=== PATIENT | male | born 1955 | race Hispanic/Latino ===

== ENCOUNTER → 2024-01-04 06:31 | Day surgery (SDC) | payer BC, OTHER, SELFPAY ==
[2024-01-04 08:20] LABS: Glucose - Point of Care 99 mg/dl (70-99)
== END ==
LOC: GI 06:31
PROVIDERS: ATTENDING PHYSICIAN Internal Medicine Gastroenterology
DX: Z12.11 Encounter for screening for malignant neoplasm of colon (principal); K64.8 Other hemorrhoids; D12.3 Benign neoplasm of transverse colon; D12.4 Benign neoplasm of descending colon; Z86.010 Personal history of colon polyps
CPT/HCPCS: 45385; 88305; 82962

== ENCOUNTER → 2024-01-07 07:25 | Outpatient (REF) | payer BC, OTHER, SELFPAY | LOC: RAD 07:25 | PROVIDERS: ATTENDING PHYSICIAN Internal Medicine Critical Care Medicine | DX: Z87.891 Personal history of nicotine dependence (principal) | CPT/HCPCS: 71271 ==

== ENCOUNTER 2024-02-15 06:41 | Day surgery (SDC) | payer BC, SELFPAY ==
[2024-01-25 13:24] VITALS: BMI 30.9
[2024-01-25 14:20] LABS: INR 1.07; PT 13.7 Sec (11.4-14.6)
[2024-01-25 14:21] LABS: APTT 27.4 Sec (23.4-35.0)
[2024-02-15] VITALS (8 sets, daily range): BP systolic 122–162; BP diastolic 66–94; BMI 30.9
[2024-02-15 09:25] LABS: Glucose - Point of Care 122 mg/dl (70-99)
[2024-02-15 11:57] LABS: Glucose - Point of Care 113 mg/dl (70-99)
== END 2024-02-15 13:15 | disposition home or self-care (01) ==
LOC: GI 06:41
PROVIDERS: ATTENDING PHYSICIAN Internal Medicine Critical Care Medicine; FAMILY PHYSICIAN Nurse Practitioner Family; OTHER PHYSICIAN Internal Medicine Medical Oncology
DX: R91.1 Solitary pulmonary nodule (principal); R59.0 Localized enlarged lymph nodes; D14.31 Benign neoplasm of right bronchus and lung; J18.8 Other pneumonia, unspecified organism
CPT/HCPCS: 31629; 31624; 31623; 31627; 31654; 31628; 88172; 88173; 88305; 36415; 71045; 76000; 82962; 85610; 85730; 87015; 87070; 87102; 87116; 87205; 88112; 88333; 88334; 93005; 94640; C1887

== ENCOUNTER 2024-03-16 05:10 | Inpatient (IN) | payer BC, OTHER, SELFPAY ==
[2024-03-09 09:43] LABS: Urine Albumin Negative (Neg - Trace); Urine Bilirubin Negative (Negative); Urine Character Slightly Cloudy (Clear); Urine Color Yellow; Urine Glucose Negative (Negative); Urine Ketone Negative (Negative); Urine Leukocyte Negative (Negative); Urine Nitrite Negative (Negative); Urine Occult Blood Negative (Negative); Urine Specific Gravity 1.015 (<1.030); Urine Urobilinogen Negative (Neg - 1+)
[2024-03-09 09:43] LABS: % Basophils 0.5 % (0-2); % Eosinophils 2.1 % (0-6); % Immature Granulocytes 0.4 % (0-0.5); % Lymphocytes 19.4 % (20.5-51.1); % Monocytes 6.3 % (1.7-9.3); % Neutrophils 71.3 % (42.2-75.2); Absolute Basophils 0.1 10^3/uL (0-0.2); Absolute Eosinophils 0.2 10^3/uL (0-0.7); Absolute Lymphocytes 1.9 10^3/uL (1.2-3.4); Absolute Monocytes 0.6 10^3/uL (0.1-0.6); Absolute Neutrophils 6.9 10^3/uL (1.4-6.5); Hematocrit 36.2 % (39.0-52.0); Mean Corp Hgb Conc. 33.1 g/dL (33.0-37.0); Mean Corpuscular Hgb 27.8 pg (27.0-31.0); Mean Platelet Volume 10.6 fL (7.4-10.4); Nucleated Red Blood Cells % 0 % (-); Platelet Count 267 10^3/uL (130-400); Red Blood Cell Count 4.31 10^6/uL (4.70-6.10); Red Cell Dist. Width 12.9 % (11.5-14.5); White Blood Cell Count 9.6 10^3/uL (4.8-10.8)
[2024-03-09 09:51] LABS: PT 14.2 Sec (11.4-14.6)
[2024-03-09 09:52] LABS: APTT 27.4 Sec (23.4-35.0)
[2024-03-09 11:57] LABS: ALT (SGPT) 14 U/L (0-50); AST (SGOT) 19 U/L (17-59); Alkaline Phosphatase 91 U/L (38-126); Blood Urea Nitrogen 19 mg/dl (9-20); Calcium 9.1 mg/dl (8.4-10.2); Carbon Dioxide 24 mmol/L (22-30); Chloride 105 mmol/L (98-107); Direct Bilirubin 0.3 mg/dl (0.0-0.4); Glucose 89 mg/dl (70-99); Potassium 3.6 mmol/L (3.5-5.1); Sodium 139 mmol/L (135-145); Total Bilirubin 0.5 mg/dl (0.2-1.3); Total Protein 6.9 g/dl (6.3-8.2); eGFR > 60.00
[2024-03-09 12:12] VITALS: BMI 31.9
--- NOTE | 2024-03-09 13:04 | CM ---
spoke to pt in PAT's, we discussed preop lung surgery including driving and lifting restrictions, he is prev indep, lives with his in a 2 story home with 1 step to enter. he has the lung surgery educ book, soap and instructions. he is agreeable
to a f/u appt for the ct transitional care nurse after dc. cm role explained and all questions answered. plan is for RUL surgery 03/16.
[2024-03-09 14:39] LABS: Glycohemoglobin (HgbA1c) 6.4 % (4.0-5.6)
[2024-03-16] VITALS (26 sets, daily range): BP systolic 131–181; BP diastolic 66–92; BMI 30.8
--- NOTE | 2024-03-16 06:10 | W.CVOR.SURPR ---
CVOR Surgeon Immed Pre Op
-
I have examined this patient prior to performance of the scheduled procedure.
The patient's condition is unchanged from the time of the dictated/written History and
Physical and the patient is able to undergo the scheduled procedure.
Having multiple loose stools since 1am, denies any abdominal pain, no fevers, no chills. Denies eating anything out
of the norm, did have Lasagna last night. Will check CBC with diff and BMP for electrolyte disturbances/cristobal. Otherwise,
if labs are ok, will proceed with lobectomy.
[2024-03-16 06:15] LABS: % Basophils 0.5 % (0-2); % Immature Granulocytes 0.8 % (0-0.5); % Lymphocytes 14.4 % (20.5-51.1); % Monocytes 5.5 % (1.7-9.3); % Neutrophils 76.8 % (42.2-75.2); Absolute Basophils 0.1 10^3/uL (0-0.2); Absolute Eosinophils 0.3 10^3/uL (0-0.7); Absolute Immature Granulocytes 0.1 10^3/uL (0-0.05); Absolute Lymphocytes 1.8 10^3/uL (1.2-3.4); Absolute Monocytes 0.7 10^3/uL (0.1-0.6); Absolute Neutrophils 9.6 10^3/uL (1.4-6.5); Hematocrit 35.7 % (39.0-52.0); Hemoglobin 12.4 g/dL (13.0-18.0); Mean Corp Hgb Conc. 34.7 g/dL (33.0-37.0); Mean Corpuscular Hgb 28.1 pg (27.0-31.0); Mean Platelet Volume 9.1 fL (7.4-10.4); Nucleated Red Blood Cells % 0 % (-); Platelet Count 345 10^3/uL (130-400); Red Blood Cell Count 4.41 10^6/uL (4.70-6.10); White Blood Cell Count 12.5 10^3/uL (4.8-10.8)
[2024-03-16 06:29] LABS: ALT (SGPT) 16 U/L (0-50); AST (SGOT) 20 U/L (17-59); Albumin 4.3 g/dl (3.5-5.0); Alkaline Phosphatase 94 U/L (38-126); Blood Urea Nitrogen 22 mg/dl (9-20); Calcium 10.5 mg/dl (8.4-10.2); Carbon Dioxide 27 mmol/L (22-30); Chloride 103 mmol/L (98-107); Estimated Creatinine Clearance 121 ml/min; Glucose 160 mg/dl (70-99); Potassium 3.2 mmol/L (3.5-5.1); Sodium 138 mmol/L (135-145); Total Bilirubin 0.5 mg/dl (0.2-1.3); Total Protein 7.2 g/dl (6.3-8.2); eGFR > 60.00
[2024-03-16] MEDS: KCL 270 MEQ IV (07:45)
--- NOTE | 2024-03-16 07:51 | PTCARENOTE ---
Patient prepared for lung surgery with Dr. Pradhan. Performed preoperative check list. Vitals assessed. Patient clipped and wiped with CHG. Patient reports diarrhea overnight. CT PA notified. Orders obtained for labs. Patient transported at approx 0705
[2024-03-16 08:48] LABS: Urine Albumin Trace (Neg - Trace); Urine Bilirubin Negative (Negative); Urine Character Clear (Clear); Urine Color Yellow; Urine Glucose Negative (Negative); Urine Ketone Negative (Negative); Urine Leukocyte Negative (Negative); Urine Nitrite Negative (Negative); Urine Occult Blood Negative (Negative); Urine Urobilinogen Negative (Neg - 1+)
[2024-03-16 09:26] LABS: Glucose - Point of Care 159 mg/dl (70-99)
[2024-03-16 10:31] LABS: Glucose - Point of Care 187 mg/dl (70-99)
--- NOTE | 2024-03-16 11:39 | CM ---
Chart reviewed. Patient is in the OR today. Patient is independent of ADLS, lives with his in a 2 STH, 1 JESUS MANUEL, 0 DME. Plan is for the patient to return home with CT Transitional RN. CM to follow
[2024-03-16 11:51] LABS: Glucose - Point of Care 200 mg/dl (70-99)
[2024-03-16] MEDS: ANCEF 10 IV (12:09)
--- NOTE | 2024-03-16 12:25 | W.PN.CT.SURG ---
CT Surgery Operative Note
-
THORACIC SURGERY OPERATIVE REPORT
Preoperative Diagnosis: Spiculated mass of the right upper lobe with atypical cells on biopsy
Postoperative Diagnosis: Same
Procedure(s) Performed:
1. Robotic assisted thoracic surgery, right upper lobectomy
2. Radical lymph node dissection
3. Diagnostic and therapeutic wedge resection of right middle lobe
4. Intercostal nerve block using bupivacaine mixture, interspaces 4 through 8
5. Right middle lobe and right lower lobe pexy
Date of Surgery: 03/16/2024
Comorbidities:
1. Spiculated and suspicious for malignancy right upper lobe nodule with atypical cells on biopsy
2. Hyperlipidemia
3. Hypertension
4. Prostate cancer status post surgical resection and hormonal therapy
5. Colonic polyps
6. Type 2 diabetes mellitus
7. Emphysema/COPD
8. History of tobacco abuse, quit in 2021, former 29-[id number]-[id number] smoking history
9. JANKI not tolerant of CPAP
10. Family history of cystic fibrosis
Attending Surgeon: Kelton Pradhan MD, MS
Assistants: Beba Minaya PA-C (present and necessary to floral assistant, exchanging robotic instruments, retraction, suction, exposure, suture management, and wound closure under my direction)
Anesthesiology: Greg Colindres MD and Luis F Dalal CRNA
Scrub and Circulating RNs: Meg Holguin RN, Alireza Ram RN
Anesthesia: Dual Lumen GETA
EBL: 150 cc
Products: None
Indication(s) for Procedures: This is a 70-year-old male with a history significant for tobacco abuse. He was found to have a spiculated 1.4 to 1.6 cm right upper lobe mass that was concerning for malignancy. PET/CT imaging demonstrated
significant FDG avidity as well as some mediastinal mild uptake. Robotic endoluminal bronchoscopy with TBNA came back with rare atypical cells, sampling of his mediastinal nodes at station 7 was negative for malignancy. Due to his significant
smoking history, and the appearance of the mass on imaging as well as the atypical cells on biopsy, he was offered surgical resection of the right upper lobe along with mediastinal lymph node dissection and also sampling of a right middle lobe
nodule that was seen on imaging study. He accepted the risks of surgery and so we proceeded.
Findings: Heavily diseased lung with evidence of central emphysema. No obvious metachronous lesions in the right hemithorax. The lesion was central in the right upper lobe and very hard and tactile. The right upper lobe pulmonary vein was densely
adherent and draped over top of the pulmonary artery. His hilum was significantly scarred. After sequential dissection around the hilum harvesting lymph nodes, I was able to isolate the right upper lobe veins and divided them using white load
staplers. This then freed up branches from his pulmonary artery to the right upper lobe which were sequentially divided with white load staplers. This left a very thickened and scarred right upper lobar bronchus which we performed a clamp test on
with inflation demonstrating unobstructed flow to the right lower lobe and right middle lobe. This was divided with a black load stapler. There is no significant air leak on water test at the end of the case. He had good inflation of the right
middle and right lower lobe. Due to his well-developed fissures, the right middle lobe was pexied to the right lower lobe to prevent torsion. He also had nodule on the right middle lobe inferior aspect which was wedged using green load stapler
which was sent off as a separate specimen. He had no significant loss and tidal volume and an intermittent +1 air leak at the conclusion of the case which improved.
Specimen(s):
Station 9, x 1 nodes
Station 10, x 4 nodes
Station 11, x 3 nodes
Station 2/4, x 2 nodes
Station 7, x 4 nodes
Right middle lobe wedge with nodule
Right upper lobe
Description of Procedure: The patient was taken to the operating room. Induction via general anesthesia with endotracheal intubation was performed and peripheral venous access and arterial monitoring were inserted. Their identity and procedure to be
performed were verified and they were positioned with the right side up on the operating table. The patient was then prepped and draped in a sterile fashion. A preoperative time-out was performed with all members of the team present. A Veress
needle was used to insufflate the chest after isolating the lung. An 8 mm port was placed in the midaxillary line at approximately the eighth intercostal space and confirmed to be intrathoracic without significant pulmonary injury. The chest was
surveyed for any evidence of metastatic disease. Patient tolerate insufflation without complication. 2 additional 12 mm trocars were placed on either side under camera guidance and a third 8 mm trocar was placed along the back. A 12 mm phlebotomy lab assistant
port was placed in the 11th intercostal space above the insertion of the diaphragm. An intercostal nerve block was performed at intercostal spaces 4 through 8.
The thoracic cavity was inspected for evidence of metastatic disease. None was observed. We started with mobilization of the inferior pulmonary ligament. We worked our way clockwise dissecting out the hilum and harvest any lymph nodes identified.
The pulmonary arteries and veins leading to the right upper lobe were identified and skeletonized. As mentioned above the right upper lobe veins were anomalous in their course and draped over top of the basilar branch of the pulmonary artery
leading to the right lower and right middle lobes. There is also dense adhesion and inflammation likely secondary to central emphysema. In order to develop the fissure fully agreeable stapler is used to divide the right upper right middle lobe
fissure staying above the pulmonary vein draining the right middle lobe. Once I was able to isolate the pulmonary veins, they were sequentially divided with a white load stapler. This then left 2 major branches pulmonary artery to the right upper
lobe which were sequentially taken with right lobe staplers. I clamped the bronchus and performed a test inflation which demonstrated unobstructed flow into the remaining lobes. The specimen was displaced toward the apex while a chest tube was
inserted and placed laterally towards the apex. I was able to identify the nodule in the right middle lobe which was wedged using green load stapler at the same time pexied to the right lower lobe as it was very mobile and at risk of torsion. A
bubble test was performed to identify any air leaks. Coseal was used to reinforce the staple lines and hilum. The right upper lobe as well as right middle lobe wedge were then placed into a specimen bag and extracted from the chest cavity. After
confirming hemostasis, the lung was fully inflated and all ports were removed. Incisions were closed in 3 layers including the fascia, dermal, and epidermis. Additional local anesthesia was injected into all incision sites. The skin wound was
cleansed and sealed with Dermabond glue.
All instrument, sponge, and needle counts were confirmed to be correct x 2 at the end of the operation. The patient was transferred to the cardiac intensive care unit extubated in critical but stable condition.
I, Dr. Kelton Pradhan, was present, scrubbed for, and performed all critical elements of this procedure.
Kelton Pradhan MD, MS
Cardiothoracic Surgeon
[facility]
This operative dictation was created using the Joyent dictation system. Please excuse any grammatical, typographical, or 'sound alike' errors
[2024-03-16 13:00] LABS: Glucose - Point of Care 188 mg/dl (70-99)
[2024-03-16] MEDS: DILAUDID 0.5 MG IV (13:30)
[2024-03-16] MEDS: TRANDATE 5 MG IV ×2 (13:54→14:07)
[2024-03-16] MEDS: TORADOL 15 MG IV (13:58)
--- NOTE | 2024-03-16 14:58 | PTCARENOTE ---
Received pt from PACU via bed; Pt AAOx3 and resting comfortably in bed; NSR on monitor and VSS; Left A-line and PIV x1 all lines leveled and zeroed; Lungs diminished; CT x1 to -20 wall suction, no crepitus noted and +1 intermittent air leak noted,
CV CONE CHOCOLATE DIPPER in room and aware; hypoactive bowel sounds; pt DTV at 1800; palpable pluses throughout; no edema noted; all surgical sites C/D/I; see flow sheet for details.
[2024-03-16] MEDS: ANCEF IV (15:11)
--- NOTE | 2024-03-16 15:17 | CON.INTV ---
Consultation
Consultation Request
Date/Time Consultation Requested: 03/16
Date/Time Consultation Performed: 03/16
Reason for Consultation: Postthoracotomy
Medical History
-
History of Present Illness:
History obtained from the patient, medical records. Patient is a pleasant 68-year-old male with history of prostate cancer status post prostatectomy, significant tobacco history quit 2021 who had identified 1.4 cm right upper lobe nodule on
low-dose screening. Patient also had some subcarinal adenopathy. He has a chronic right middle lobe nodule with calcification. PET scan suggested increase suspicion of right upper lobe malignancy. Robotic bronchoscopy performed 02/15/2024. Rare
atypical cytology from right upper lobe nodule, sampling of lymph node station 7 was negative for malignancy. Patient underwent right upper lobectomy and right middle lobe wedge resection 03/16/2024.
Presently he is with mild chest tube discomfort otherwise denies nausea, abdominal pain. Chest tube with intermittent airleak noted. at bedside
.
PMH: Hypertension, hyperlipidemia, history of prostate cancer status post prostatectomy, diabetes, mild interstitial changes, chronic right middle lobe appearing nodule with calcification, COPD/emphysema, sleep apnea intolerant to CPAP. He also has
history of pneumonia. History of cholecystectomy, prostatectomy 2012
Past Medical History
Past Medical History: None (See above)
Past Surgical History: None (See above)
Social History
Tobacco: Former Smoker (26-[id number]-zaou history of smoking quit 2021)
Alcohol: Occasional
Drug: None
Personal:
Living: With Family
Employment: Retired ([employer])
Family History
Family History: Other (Father age 80, mother age 77 history of bladder cancer, uterine cancer, breast cancer in the family along with ovarian cancer. Brother, sister and grandmother with cystic fibrosis)
Allergies / Home Medications
Allergies
Allergy/AdvReac Type Severity Reaction Status Date / Time
No Known Allergies Allergy Verified 03/07/24 11:39
Home Medications
�Medication �Instructions �Recorded �Confirmed �Last Taken �Type
sitagliptin phos 100 mg-metformin 1 ea PO DAILY 03/04/16 03/16/24 03/15/24 History
ER 1,000 mg tablet,extend rel 24h
mp (Janumet XR)
fenofibrate nanocrystallized 145 145 mg PO DAILY #1 tab 04/18/16 03/16/24 03/15/24 Rx
mg tablet
atorvastatin 10 mg tablet 10 mg PO DAILY 04/03/17 03/07/24 02/14/24 History
calcium-vitamin D3-vitamin K 500 1 ea PO DAILY 09/08/21 03/07/24 02/14/24 History
mg-1,000 unit-40 mcg chewable
tablet
insulin glargine 100 unit/mL (3 22 units SC HS 09/08/21 03/16/24 03/15/24 History
mL) subcutaneous pen (Lantus
Solostar U-100 Insulin)
prednisone 5 mg tablet 5 mg PO DAILY 09/08/21 03/16/24 03/15/24 History
abiraterone 500 mg tablet (Zytiga) 1,000 mg PO HS 02/11/24 03/07/24 02/14/24 History
insulin lispro 100 unit/mL 10 unit SC AC 02/11/24 03/16/24 03/15/24 History
subcutaneous pen (Humalog KwikPen
(U-100) Insulin)
lisinopril 10 mg tablet 10 mg PO DAILY 02/11/24 03/16/24 03/15/24 History
oxcarbazepine 300 mg tablet 300 mg PO DAILY 02/11/24 03/16/24 03/15/24 History
hydrochlorothiazide 25 mg tablet 25 mg PO DAILY 02/15/24 03/16/24 03/15/24 History
Review of Systems
-
All other systems: Negative unless noted
Vitals / Labs / Diagnostic Testing
Vital Signs
Temp Pulse Resp BP Pulse Ox
97.8 F 81 11 150/72 100
03/16/24 14:00 03/16/24 14:47 03/16/24 14:30 03/16/24 14:30 03/16/24 14:30
Lab Data
03/16/24 06:07
03/16/24 06:07
Laboratory Results
03/16/24
12:24
pH Cancelled
pCO2 Cancelled
pO2 Cancelled
HCO3 Cancelled
O2 Delivery Level Cancelled
Diagnostic Testing:
Physical Exam
-
HEENT: Normocephalic and Anicteric
Cardiovascular: S1/S2, Regular Rhythm, Murmur (n), Rub (n) and Peripheral Edema (n)
Respiratory: Wheeze (n), Rales (n), Rhonchi (n) and Non-Labored Respirations
GI: Soft, Non Distended and Non Tender
Neurology: Awake, Alert and No Motor Deficits (Moves all extremities)
Skin: Other (Chest tube, incision right chest wall intact, mild oozing from chest tube site) and Other (Left upper extremity)
General: Comfortable
Assessment
-
68-year-old male with 1.4 cm PET avid right upper lobe nodule identified with lung cancer screening, robotic bronchoscopy February 2024 with atypical cells, negative lymph node station 7, now status post robotic assisted thoracotomy with right upper
lobe ectomy, lymph node dissection and wedge of right middle lobe nodule 03/16/2024
S/p RATS, RULectomy, RML wedge resection
Lymph node dissection
1.4 cm right upper lobe nodule, PET avid
Atypical cells on robotic bronchoscopy 02/15/2024
Station 7 lymph node sampling negative
Right middle lobe nodule with focal calcification
Conditions present prior to admission
Biapical emphysema
Mild interstitial changes
Preoperative FEV1 3.55/90%, TLC 6.4/81%, DLCO 26.98/86%
Hypertension/hyperlipidemia
Diabetes
Sleep apnea, intolerant to CPAP
History of prostate cancer, prostatectomy
[id number] history of smoking quit 2021
Family history of cystic fibrosis
Family history of cancer (colon, ovarian, breast)
Plan/recommendations
At this time, patient appears to be comfortable
Chest exam is clear, chest tube in place with intermittent leak. Chest tube site dressed with mild oozing, robotic incision sites intact
Postoperative chest x-ray with no pneumothorax, volume loss right side
Preoperative PFT normal
Postoperative EKG within normal limits
Moving forward
Continue with management per CT surgery
Chest tube to suction
Resume antihypertensive therapy
IV fluids
follow hemoglobin
Await path
Pain control
DVT prophylaxis: Subcutaneous heparin
Reviewed with critical care nursing, patient, at bedside
Pulmonary will follow briefly
Patient will follow up with Dr. Falk post discharge
[2024-03-16] MEDS: LIPITOR PO (15:18)
[2024-03-16] MEDS: THERAGRAN PO (15:19)
[2024-03-16] MEDS: SENOKOT-S PO (15:19)
[2024-03-16] MEDS: NEURONTIN PO (15:23)
[2024-03-16] MEDS: NEURONTIN 300 MG PO ×2 (15:23→22:00)
[2024-03-16] MEDS: ZESTRIL 10 MG PO (15:23)
--- NOTE | 2024-03-16 15:33 | PTCARENOTE ---
Left A-line removed.
[2024-03-16] MEDS: ROXICODONE 5 MG PO (17:07)
[2024-03-16 17:10] LABS: Glucose - Point of Care 187 mg/dl (70-99)
--- NOTE | 2024-03-16 18:07 | PTCARENOTE ---
Assessment unchanged; NSR on monitor and VSS.
[2024-03-16] MEDS: APRESOLINE 10 MG IV ×2 (18:14→22:00)
[2024-03-16] MEDS: NOVOLOG FLEXPEN-MODERATE RESISTANCE 1 UNITS SC (18:32)
[2024-03-16] MEDS: FLEXERIL 5 MG PO (18:45)
[2024-03-16] MEDS: SENOKOT-S 1 TABLET PO (19:59)
[2024-03-16] MEDS: ANCEF 5 IV (19:59)
[2024-03-16] MEDS: ROXICODONE 10 MG PO (19:59)
--- NOTE | 2024-03-16 20:00 | PTCARENOTE ---
assumed care of pt from previous RN. pt A&Ox4, resting in chair at time of assessment. pt c/o pain, see MAR. SR on tele-monitor, HR 80s-90s. palpable peripheral pulses, no edema noted. CT x1 (R pleural) to -20cm wall suction, draining sanguineous
drainage. pt voiding clear, yellow urine. all surgical sites stable. PIVx2 intact. see worklist for complete nursing assessment, interventions, VS, and I&Os.
[2024-03-16 21:59] LABS: Glucose - Point of Care 251 mg/dl (70-99)
[2024-03-16] MEDS: LANTUS 0.22 UNITS SC (22:01)
[2024-03-16] MEDS: HEPARIN 5000 UNITS SC (22:01)
[2024-03-17] VITALS (22 sets, daily range): BP systolic 109–156; BP diastolic 55–98; BMI 30.8
--- NOTE | 2024-03-17 | PTCARENOTE ---
assessment remains unchanged. VSS. CT drainage WNL.
[2024-03-17] MEDS: ANCEF 5 IV ×2 (04:06→11:38)
[2024-03-17 04:41] LABS: Hematocrit 37.9 % (39.0-52.0); Hemoglobin 12.5 g/dL (13.0-18.0); Mean Corpuscular Hgb 28.1 pg (27.0-31.0); Mean Corpuscular Volume 85.2 fL (80.0-94.0); Mean Platelet Volume 9.1 fL (7.4-10.4); Platelet Count 305 10^3/uL (130-400); Red Blood Cell Count 4.45 10^6/uL (4.70-6.10); Red Cell Dist. Width 13.2 % (11.5-14.5); White Blood Cell Count 14.7 10^3/uL (4.8-10.8)
[2024-03-17 05:08] LABS: Blood Urea Nitrogen 22 mg/dl (9-20); Calcium 8.8 mg/dl (8.4-10.2); Carbon Dioxide 23 mmol/L (22-30); Chloride 105 mmol/L (98-107); Estimated Creatinine Clearance > 125 ml/min; Glucose 209 mg/dl (70-99); Sodium 136 mmol/L (135-145); eGFR > 60.00
[2024-03-17] MEDS: TORADOL 15 MG IV ×2 (05:41→14:26)
--- NOTE | 2024-03-17 06:43 | W.PN.CT ---
Today's Communication / Plan
-
-pod #1
-no issues overnight
-R CT on -20 sxn with intermittent +1 air leak, put out 230/410 serosang in 12/24 hrs
-follow CXR
-hypertensive - increased Lopressor 25 bid. Continue Lisinopril, prn Hydralazine
-sq Heparin for DVT prophylaxis
Assessment / Plan
-
- Spiculated mass of the right upper lobe with atypical cells on biopsy- s/p Robotic assisted right upper lobectomy and radical lymph node dissection on 03/16/[address] Pradhan, pod #1
- Hyperlipidemia
- Hypertension
- Prostate cancer status post surgical resection and hormonal therapy
- Colonic polyps
- Type 2 diabetes mellitus
- Emphysema/COPD
- History of tobacco abuse, quit in 2021, former [id number] smoking history
- JANKI not tolerant of CPAP
- Family history of cystic fibrosis
Discussed patient care with: Nursing and Care Team
Subjective
Procedure
- s/p Robotic assisted right upper lobectomy and radical lymph node dissection on 03/16/[address] Pradhan
-
Date of Service: March 17, 2024
Objective Data
-
PT 14.2 Sec (11.4-14.6) 03/09/24 08:47
INR 1.10 03/09/24 08:47
APTT 27.4 Sec (23.4-35.0) 03/09/24 08:47
Vital Signs
Vital Signs
Temp Pulse Resp BP Pulse Ox
98.2 F 93 18 151/77 99
03/17/24 00:00 03/17/24 00:00 03/17/24 00:00 03/17/24 00:00 03/17/24 00:00
CT Intake/Output/Weight
03/16/24 03/16/2403/17/24
06:59 18:59 06:59
Intake Total 300 / 300
Output Total 380 / 510 130 / 510
Balance -80 / -210 -130 / -210
SaO2: 99
Physical Exam
-
General: Awake and AOx3
Cardiovascular: Regular rate & rhythm, No Murmurs and No Rub
Respiratory: Decreased Breath Sounds
Incision: Clean, Dry and Dressing Intact
Extremities: No Edema
Data Reviewed
-
Lab Results: Results Reviewed
Medications: Active Meds Reviewed
Chest X-Ray: Report Reviewed and Image Reviewed
ECG: Report Reviewed and Image Reviewed
--- NOTE | 2024-03-17 07:05 | W.PN.PUL3 ---
Today's Communication / Plan
-
Await final path
Pain control, bowel regimen
Chest tube management per surgery
Follow hemoglobin
Follow-up with Dr. Lombardo, appointment in few weeks
We will sign off. Please call with questions
Assessment
-
68-year-old male with 1.4 cm PET avid right upper lobe nodule identified with lung cancer screening, robotic bronchoscopy February 2024 with atypical cells, negative lymph node station 7, now status post robotic assisted thoracotomy with right upper
lobe ectomy, lymph node dissection and wedge of right middle lobe nodule 03/16/2024
S/p RATS, RULectomy, RML wedge resection
Lymph node dissection
1.4 cm right upper lobe nodule, PET avid
Atypical cells on robotic bronchoscopy 02/15/2024
Station 7 lymph node sampling negative
Right middle lobe nodule with focal calcification
Conditions present prior to admission
Biapical emphysema
Mild interstitial changes
Preoperative FEV1 3.55/90%, TLC 6.4/81%, DLCO 26.98/86%
Hypertension/hyperlipidemia
Diabetes
Sleep apnea, intolerant to CPAP
History of prostate cancer, prostatectomy
31-ixia-xjus history of smoking quit 2021
Family history of cystic fibrosis
Family history of cancer (colon, ovarian, breast)
Plan/recommendations
At this time, patient appears to be comfortable
Chest exam is clear, chest tube in place, no airleak at this time. Chest tube site dressed with mild oozing, robotic incision sites intact
Postoperative chest x-ray with no pneumothorax, volume loss right side
Preoperative PFT normal
Postoperative EKG within normal limits
Moving forward
Continue with management per CT surgery
Chest tube to suction
Resume antihypertensive therapy
IV fluids
follow hemoglobin
Await path
Pain control
DVT prophylaxis: Subcutaneous heparin
Reviewed with critical care nursing, patient, at bedside
Patient will follow up with Dr. Falk post discharge, appointment already set up
We will sign off. Please call with questions
Subjective Data
-
Date of Service:
Date of Service: March 17, 2024
Subjective:
Patient examined earlier this morning. Sitting in chair, mild chest tube discomfort but otherwise feels well. Denies nausea, abdominal pain, shortness of breath. at bedside
Objective Data
Data Reviewed
Vital Signs / I&O / Oxygen:
Vital Signs
Temp Pulse Resp BP Pulse Ox
99.1 F 78 16 140/64 98
03/17/24 04:00 03/17/24 06:30 03/17/24 04:00 03/17/24 06:01 03/17/24 06:30
Intake and Output
03/16/24 03/17/24 03/18/24
06:59 06:59 06:59
Intake Total 300 / 300
Output Total 610 / 610
Balance -310 / -310
SaO2 98
Nasal Cannula flow liters per 2
minute
Physical Exam
General: Comfortable
HEENT: Normocephalic and Anicteric
Cardiovascular: S1-S2, Regular Rhythm, Murmur (n) and Rub (n)
Respiratory: Wheeze (n), Crackles (n), Rhonchi (n), Non-Labored Respirations and Chest Tube (No airleak)
GI: Soft, Non Distended and Non Tender
Neurology: Awake, Alert and No Motor Deficits (Moves all extremities)
Skin: Cyanosis (n), Jaundice (n) and Rash (n)
Labs/Micro/Reports
Lab Data
03/17/24 04:31
03/17/24 04:31
Laboratory Results
03/16/24
12:24
pH Cancelled
pCO2 Cancelled
pO2 Cancelled
HCO3 Cancelled
O2 Delivery Level Cancelled
--- NOTE | 2024-03-17 08:00 | PTCARENOTE ---
Received pt from edge grinder machine RN; NSR on monitor and VSS; Lungs diminished; IS to 1000; CT x1 to -20 wall suction and intermittent +1 air leak; no crepitus noted; positive bowel sounds; pt voiding yellow urine; palpable pulses throughout; no edema
noted; surgical sites C/D/I; see nursing documentation for further details.
[2024-03-17 08:06] LABS: Glucose - Point of Care 218 mg/dl (70-99)
[2024-03-17] MEDS: NEURONTIN 300 MG PO ×3 (08:10→22:12)
[2024-03-17] MEDS: FLEXERIL 5 MG PO (08:10)
[2024-03-17] MEDS: TRICOR 145 MG PO (08:10)
[2024-03-17] MEDS: SENOKOT-S PO (08:11)
[2024-03-17] MEDS: THERAGRAN 1 TABLET PO (08:11)
[2024-03-17] MEDS: LOPRESSOR 25 MG PO ×2 (08:12→19:26)
[2024-03-17] MEDS: LIPITOR 10 MG PO (08:12)
[2024-03-17] MEDS: HEPARIN 5000 UNITS SC ×3 (08:12→23:52)
[2024-03-17] MEDS: JANUVIA 100 MG PO (08:12)
[2024-03-17] MEDS: GLUCOPHAGE XR EXTENDED RELEASE 1000 MG PO (08:12)
[2024-03-17] MEDS: ZESTRIL 10 MG PO (08:12)
[2024-03-17] MEDS: LIDOCAINE 4% PATCH 1 PATCH TOPICAL (08:13)
[2024-03-17] MEDS: NOVOLOG FLEXPEN-MODERATE RESISTANCE 3 UNITS SC (08:56)
[2024-03-17] MEDS: TRILEPTAL 300 MG PO (08:58)
[2024-03-17] MEDS: OSCAL 500 + D 500 MG PO (08:58)
--- NOTE | 2024-03-17 11:36 | PTCARENOTE ---
Right Pleural Chest tube placed to water seal per DCV IS/IT PROJECT MANAGER order; CRX at 1500; NSR on monitor and VSS; assessment unchanged and pt resting comfortably in chair.
[2024-03-17] MEDS: ORETIC 25 MG PO (11:37)
[2024-03-17] MEDS: NOVOLOG FLEXPEN-MODERATE RESISTANCE 1 UNITS SC (14:10)
[2024-03-17] MEDS: NOVOLOG FLEXPEN 5 UNITS SC ×2 (14:10→17:35)
[2024-03-17 14:20] LABS: Glucose - Point of Care 191 mg/dl (70-99)
--- NOTE | 2024-03-17 15:12 | PTCARENOTE ---
CRX preformed; CV PRODUCT MARKETING MANAGER reviewed CRX, and pt placed on -10 wall suction by CV PRODUCT MARKETING MANAGER.
[2024-03-17] MEDS: NOVOLOG FLEXPEN-MODERATE RESISTANCE SC (17:39)
[2024-03-17 17:40] LABS: Glucose - Point of Care 175 mg/dl (70-99)
--- NOTE | 2024-03-17 18:25 | PTCARENOTE ---
Repeat CRX done and CV CERTIFIED ALCOHOL DRUG COUNSELOR in room, increased to -20 wall suction by CERTIFIED ALCOHOL DRUG COUNSELOR.
[2024-03-17] MEDS: SENOKOT-S 1 TABLET PO (19:26)
[2024-03-17] MEDS: ROXICODONE 10 MG PO (19:26)
--- NOTE | 2024-03-17 20:00 | PTCARENOTE ---
Received pt from dayshift; pt resting comfortably in chair; pt is AAOx4, states pain is 7/10, see MAR; NSR on monitor; VSS; heart sounds audible, radial and DP pulses palpable, no edema noted; lung sounds clear, diminished on right side, x1 right
lateral CT to -20 wall suction, tidaling present, level 1 air leak present, CVPA aware, spo2 95% on RA; + bs x 4 quadrants, abdomen soft non tender; pt voiding clear yellow urine; surgical sites stable; x2 PIV maintained; at bedside; call ramirez
within reach; will continue to monitor.
[2024-03-17] MEDS: LANTUS 0.22 UNITS SC (22:12)
[2024-03-17 22:15] LABS: Glucose - Point of Care 176 mg/dl (70-99)
[2024-03-18] VITALS (13 sets, daily range): BP systolic 98–148; BP diastolic 39–89; BMI 31.0
--- NOTE | 2024-03-18 | PTCARENOTE ---
Pt assessment unchanged; NSR on monitor, VSS; pt resting comfortably in bed; call ramirez within reach, will continue to monitor.
--- NOTE | 2024-03-18 04:00 | PTCARENOTE ---
Pt assessment unchanged; pt is NSR on monitor, VSS; states pain is 6/10, see MAR; call ramirez within reach; will continue to monitor.
[2024-03-18] MEDS: FLEXERIL 5 MG PO (04:33)
--- NOTE | 2024-03-18 05:16 | W.PN.CT ---
Today's Communication / Plan
-
-pod #2
-no issues overnight
-PTX worsened on water seal trial 03/17, currently back on -20 sxn
-R CT on -20 sxn with intermittent +1 air leak, put out 130/280 in 12/24 hrs
-follow CXR
-sq Heparin for DVT prophylaxis
Assessment / Plan
-
- Spiculated mass of the right upper lobe with atypical cells on biopsy- s/p Robotic assisted right upper lobectomy and radical lymph node dissection on 03/16/[address] Pradhan, pod #2
- Hyperlipidemia
- Hypertension
- Prostate cancer status post surgical resection and hormonal therapy
- Colonic polyps
- Type 2 diabetes mellitus
- Emphysema/COPD
- History of tobacco abuse, quit in 2021, former [id number] smoking history
- JANKI not tolerant of CPAP
- Family history of cystic fibrosis
Discussed patient care with: Nursing and Care Team
Subjective
Procedure
- s/p Robotic assisted right upper lobectomy and radical lymph node dissection on 03/16/[address] Pradhan
-
Date of Service: March 18, 2024
Objective Data
-
Lab Results
03/17/24 04:31
03/17/24 04:31
PT 14.2 Sec (11.4-14.6) 03/09/24 08:47
INR 1.10 03/09/24 08:47
APTT 27.4 Sec (23.4-35.0) 03/09/24 08:47
Vital Signs
Vital Signs
Temp Pulse Resp BP Pulse Ox
98.4 F 78 16 131/71 94
03/18/24 00:00 03/18/24 00:00 03/18/24 00:00 03/18/24 00:00 03/18/24 00:00
CT Intake/Output/Weight
03/17/24 03/17/24 03/18/24
06:59 18:59 06:59
Output Total 230 / 610 150 / 240 90 / 240
Balance -230 / -310 -150 / -240 -90 / -240
SaO2: 94
Physical Exam
-
General: Awake and AOx3
Cardiovascular: Regular rate & rhythm, No Murmurs and No Rub
Respiratory: Decreased Breath Sounds (on R. No wheeze)
Incision: Clean, Dry and Dressing Intact
Extremities: No Edema
Data Reviewed
-
Lab Results: Results Reviewed
Medications: Active Meds Reviewed
Chest X-Ray: Report Reviewed and Image Reviewed
ECG: Report Reviewed and Image Reviewed
--- NOTE | 2024-03-18 07:45 | PTCARENOTE ---
Received pt from security shift manager RN; pt AAOx3 and resting comfortably in chair; NSR on monitor and VSS; Lungs diminished; IS to 1000; CT x1 to -20 wall suction, +1 intermittent air leak and no crepitus noted; positive bowel sounds; pt voiding yellow
urine; palpable pulses throughout; no edema noted; all surgical sites C/D/I; see nursing documentation for further details.
[2024-03-18] MEDS: NOVOLOG FLEXPEN 5 UNITS SC ×3 (07:59→16:50)
[2024-03-18] MEDS: NOVOLOG FLEXPEN-MODERATE RESISTANCE 3 UNITS SC (07:59)
[2024-03-18] MEDS: LIDOCAINE 4% PATCH 1 PATCH TOPICAL (08:26)
[2024-03-18] MEDS: LOPRESSOR 25 MG PO (08:26)
[2024-03-18] MEDS: DELTASONE 5 MG PO (08:26)
[2024-03-18] MEDS: LIPITOR 10 MG PO (08:28)
[2024-03-18] MEDS: MUCINEX 600 MG PO ×2 (08:28→20:02)
[2024-03-18] MEDS: THERAGRAN 1 TABLET PO (08:28)
[2024-03-18] MEDS: HEPARIN 5000 UNITS SC ×2 (08:28→16:49)
[2024-03-18] MEDS: OSCAL 500 + D 500 MG PO (08:28)
[2024-03-18] MEDS: TRICOR 145 MG PO (08:28)
[2024-03-18] MEDS: SENOKOT-S 1 TABLET PO ×2 (08:29→20:02)
[2024-03-18] MEDS: GLUCOPHAGE XR EXTENDED RELEASE 1000 MG PO (08:29)
[2024-03-18] MEDS: TRILEPTAL 300 MG PO (08:29)
[2024-03-18] MEDS: JANUVIA 100 MG PO (08:29)
[2024-03-18] MEDS: NEURONTIN 300 MG PO ×3 (08:29→21:39)
[2024-03-18] MEDS: ZESTRIL 10 MG PO (08:29)
[2024-03-18] MEDS: ORETIC 25 MG PO (08:29)
--- NOTE | 2024-03-18 11:31 | PTCARENOTE ---
called RN into room, upon entering into room pt was found on hands and knees on floor; pt stated 'I missed the chair and went down on my knees and back side.'; Dr Pradhan CV HAIR ASSISTANT and RNs in room with pt, NSR on monitor BP 108/39; per pt did not hit
head on floor; pt assisted back to chair by RNs; new BP 98/46; at bedside and fall precautions in place.
NSR on monitor and assessment unchanged.
--- NOTE | 2024-03-18 11:35 | PN.CDI ---
CDI
- -
CDI:
Physician Documentation Request
Admit Date: 03/16/24 05:[address] Surgery,
Please review the following and provide your response in the progress notes.
Clinical Indicators:
- 7/3 40meq KCl given
Laboratory Tests
03/09/24 03/16/24 03/17/24
08:47 06:07 04:31
Potassium 3.6 3.2 L 4.0
Please provide a diagnosis for the above lab values that were monitored and treatment rendered:
Hypokalemia
Clinically insignificant abnormal lab value
Other
Use of terms such as suspected, likely, concern for, or probable (associated with a specific diagnosis that is being evaluated, monitored, or treated as if it exists) are acceptable and can be coded in the inpatient setting, when documented at the
time of discharge.
Thank you,
Jerrod Arzola RN
CDI Specialist
Please use your independent medical judgment in providing your response.
--- NOTE | 2024-03-18 11:51 | CM ---
Chart reviewed. Patient had a unwitnessed fall, at bedside. Patient independent of ADLS, lives with his in a [address], [address], 0 [address]. Plan is for the patient to return home with CT Transitional RN. CM to follow
--- NOTE | 2024-03-18 12:02 | W.PN.UPDATE ---
Update Note
Progress Note Update
CDI QUERY RESPONSE
Hypokalemia
[2024-03-18 13:41] LABS: Glucose - Point of Care 188 mg/dl (70-99)
[2024-03-18] MEDS: NOVOLOG FLEXPEN-MODERATE RESISTANCE SC ×2 (13:49→16:50)
--- NOTE | 2024-03-18 16:11 | PTCARENOTE ---
Pt resting comfortably in bed with family at bedside; NSR on monitor and VSS: assessment unchanged.
[2024-03-18 16:54] LABS: Glucose - Point of Care 131 mg/dl (70-99)
--- NOTE | 2024-03-18 20:00 | PTCARENOTE ---
assumed care of pt from previous RN. pt resting in bed at time of assessment. pt A&Ox4. SR on tele-monitor. palpable peripheral pulses. no edema noted. POX 95-96% on RA. R pleural CT to -20cm wall suction, draining serosanguineous drainage. abd s/n,
round, +BS. pt voiding clear, trevor urine in bathroom. all surgical sites stable. PIV x2 intact. call ramirez within reach, pt demonstrated appropriate use. see worklist for complete nursing assessment, interventions, VS, and I&Os.
[2024-03-18] MEDS: LOPRESSOR 12.5 MG PO (20:02)
[2024-03-18] MEDS: TORADOL 15 MG IV (21:21)
[2024-03-18 21:39] LABS: Glucose - Point of Care 209 mg/dl (70-99)
[2024-03-18] MEDS: LANTUS 0.22 UNITS SC (21:39)
[2024-03-19] VITALS (11 sets, daily range): BP systolic 126–180; BP diastolic 63–81; BMI 30.7
--- NOTE | 2024-03-19 | PTCARENOTE ---
assessment remains unchanged. VSS. CT drainage WNL.
[2024-03-19] MEDS: HEPARIN 5000 UNITS SC ×4 (00:05→23:25)
--- NOTE | 2024-03-19 03:56 | W.PN.CT ---
Today's Communication / Plan
-
Plan:
-No major issues overnight. Hemodynamically and neurologically intact
-Chest tube currently on -20 cmH2o wall suction, +tidaling, +1 intermittent air leak- pronounced with cough. Drained 180/250
-CXR from 03/17 showed large right ptx after chest tube suction was transitioned to water seal, ptx resolved on -20 cmh20 wall suction
-Cannot appreciate ptx on cxr this AM, mild SQ emphysema @ right hemithorax. F/U official report
-Will consider chest tube to -10 cmh2o wall suction today
-F/U pathology, pending
-Replete K, 3.3
-OOB into chair/Ambulate
-Cont. DVT prophylaxis with SCDs and SQ Heparin
-Will not resume Zytiga for prostate Ca until [address] Pradhan, resumed Prednisone yesterday 03/18
-Home likely tomorrow
Assessment / Plan
-
Assessment:
-S/P Robotic assisted thoracic surgery, right upper lobectomy/Radical lymph node dissection/Diagnostic and therapeutic wedge resection of right middle lobe/ Intercostal nerve block using bupivacaine mixture, interspaces 4 through 8/ Right middle
lobe and right lower lobe pexy, 03/16/[address] Pradhan, pod #3
- Spiculated mass of the right upper lobe with atypical cells on biopsy-
- Hyperlipidemia
- Hypertension
- Colonic polyps
- Type 2 diabetes mellitus
- Emphysema/COPD
- History of tobacco abuse, quit in 2021, former [id number] smoking history
- JANKI not tolerant of CPAP
- Family history of cystic fibrosis
-Prostate Ca s/p robotic prostatectomy without nerve sparing and hormonal Tx, 08/30/2013 (on Zytiga and Prednisone)
-S/p cholecystectomy, 03/05/2016
-Acute postop blood loss anemia on chronic anemia (stable without blood transfusion)
-Acute postop hypokalemia
-Acute postop right ptx post chest tube transitioning to water seal
Discussed patient care with: Nursing, Respiratory Therapy, Pharmacy and Care Team
Subjective
Procedure
S/P Robotic assisted thoracic surgery, right upper lobectomy/Radical lymph node dissection/Diagnostic and therapeutic wedge resection of right middle lobe/ Intercostal nerve block using bupivacaine mixture, interspaces 4 through 8/ Right middle lobe
and right lower lobe pexy, 03/16/[address] Pradhan
-
Date of Service: March 19, 2024
Pt c/o incisional pain, otherwise feels well
Objective Data
-
PT 14.2 Sec (11.4-14.6) 03/09/24 08:47
INR 1.10 03/09/24 08:47
APTT 27.4 Sec (23.4-35.0) 03/09/24 08:47
Vital Signs
Vital Signs
Temp Pulse Resp BP Pulse Ox
98.6 F 68 14 126/63 97
03/19/24 00:00 03/19/24 02:30 03/19/24 00:00 03/19/24 00:09 03/19/24 02:00
CT Intake/Output/Weight
03/18/24 03/18/24 03/19/24
06:59 18:59 06:59
Intake Total 480 / 480
Output Total 380 / 530 270 / 770 500 / 770
Balance -380 / -530 210 / -290 -500 / -290
SaO2: 97 (RA)
Physical Exam
-
General: Awake, Oriented and AOx3
Cardiovascular: Regular rate & rhythm and No Murmurs
Respiratory: Decreased Breath Sounds
Sternum: Stable
Incision: Clean, Dry, Intact and Dressing Intact
Extremities: No Edema
Data Reviewed
-
Lab Results: Results Reviewed
Medications: Active Meds Reviewed
Chest X-Ray: Report Reviewed and Image Reviewed
ECG: Report Reviewed and Image Reviewed
[2024-03-19 04:52] LABS: Hematocrit 32.2 % (39.0-52.0); Hemoglobin 10.7 g/dL (13.0-18.0); Mean Corp Hgb Conc. 33.2 g/dL (33.0-37.0); Mean Corpuscular Volume 84.3 fL (80.0-94.0); Mean Platelet Volume 9.1 fL (7.4-10.4); Platelet Count 227 10^3/uL (130-400); Red Blood Cell Count 3.82 10^6/uL (4.70-6.10); Red Cell Dist. Width 13.2 % (11.5-14.5); White Blood Cell Count 17.2 10^3/uL (4.8-10.8)
[2024-03-19 05:17] LABS: Blood Urea Nitrogen 27 mg/dl (9-20); Carbon Dioxide 24 mmol/L (22-30); Chloride 104 mmol/L (98-107); Estimated Creatinine Clearance 121 ml/min; Glucose 128 mg/dl (70-99); Magnesium 2.1 mg/dl (1.6-2.3); Potassium 3.3 mmol/L (3.5-5.1); Sodium 135 mmol/L (135-145); eGFR > 60.00
[2024-03-19] MEDS: FLEXERIL 5 MG PO (05:52)
[2024-03-19] MEDS: KCL 40 MEQ PO (05:52)
[2024-03-19 07:45] LABS: Glucose - Point of Care 143 mg/dl (70-99)
[2024-03-19] MEDS: NOVOLOG FLEXPEN 5 UNITS SC ×3 (08:00→17:05)
[2024-03-19] MEDS: DELTASONE 5 MG PO (08:01)
[2024-03-19] MEDS: NOVOLOG FLEXPEN-MODERATE RESISTANCE SC (08:01)
[2024-03-19] MEDS: THERAGRAN 1 TABLET PO (08:01)
[2024-03-19] MEDS: SENOKOT-S 1 TABLET PO ×2 (08:02→19:31)
[2024-03-19] MEDS: OSCAL 500 + D 500 MG PO (08:02)
[2024-03-19] MEDS: JANUVIA 100 MG PO (08:02)
[2024-03-19] MEDS: GLUCOPHAGE XR EXTENDED RELEASE 1000 MG PO (08:02)
[2024-03-19] MEDS: ORETIC 25 MG PO (08:03)
[2024-03-19] MEDS: NEURONTIN 300 MG PO ×3 (08:03→22:07)
[2024-03-19] MEDS: TRICOR 145 MG PO (08:03)
[2024-03-19] MEDS: LIPITOR 10 MG PO (08:03)
[2024-03-19] MEDS: LOPRESSOR 12.5 MG PO ×2 (08:03→19:31)
[2024-03-19] MEDS: TORADOL 15 MG IV ×2 (08:04→16:29)
[2024-03-19] MEDS: MUCINEX 600 MG PO ×2 (08:04→19:31)
[2024-03-19] MEDS: TRILEPTAL 300 MG PO (08:04)
[2024-03-19] MEDS: LIDOCAINE 4% PATCH 1 PATCH TOPICAL (08:05)
--- NOTE | 2024-03-19 08:23 | PTCARENOTE ---
Received patient for 7A-7P shift. Pt AAOx3, without complaints. at bedside. NSR on desk monitor, VSS. 97% room air. Right CT with air leak, serosanguineous drainage, + tidaling, placed to water seal by Dr. Pradhan. Pt placed on continuous pulse
ox, 96-98% room air. Blood glucose 143, medications administered as ordered. Pt medicated for pain. IS up to 1000, encouraged, productive cough with yellow sputum. Pt placed on high fall risk precautions, chair alarm maintained. Pt instructed to
call for assistance prior to ambulation, verbalized understanding, demonstrates use of call ramirez system. Will continue to monitor.
[2024-03-19] MEDS: ZESTRIL 10 MG PO (09:49)
[2024-03-19 12:27] LABS: Glucose - Point of Care 177 mg/dl (70-99)
[2024-03-19] MEDS: NOVOLOG FLEXPEN-MODERATE RESISTANCE 1 UNITS SC ×2 (12:30→17:05)
--- NOTE | 2024-03-19 12:51 | PTCARENOTE ---
Pt reassessed, assessment unchanged from previous. NSR on surveillance system monitor, VSS. Blood glucose 177, novolog administered as ordered. CT remains to water seal, + tidaling, +1 air leak, serosanguineous drainage, unchanged from previous. POX 99% room
air. Will continue to monitor.
[2024-03-19] MEDS: APRESOLINE 10 MG IV (16:29)
[2024-03-19 17:05] LABS: Glucose - Point of Care 195 mg/dl (70-99)
[2024-03-19] MEDS: ROXICODONE 10 MG PO (18:09)
--- NOTE | 2024-03-19 20:00 | PTCARENOTE ---
assumed care of pt from previous RN. pt resting in chair at time of assessment, A&Ox4. SR on tele-monitor. R pleural CT to water seal. palpable peripheral pulses. no edema noted. abd s/n, round, +BS. surgical sites stable, CDI. PIV x2 intact. pt
washed w/ CHG wipes and assisted back to bed. call ramirez within reach, pt demonstrated appropriate use. see worklist for complete nursing assessment, interventions, VS, and I&Os.
[2024-03-19 22:07] LABS: Glucose - Point of Care 134 mg/dl (70-99)
[2024-03-19] MEDS: LANTUS 0.22 UNITS SC (22:07)
[2024-03-20] VITALS (7 sets, daily range): BP systolic 139–183; BP diastolic 68–83; BMI 30.8
--- NOTE | 2024-03-20 | PTCARENOTE ---
assessment remains unchanged. VSS. CT drainage WNL.
[2024-03-20] MEDS: FLEXERIL 5 MG PO ×3 (00:05→21:47)
[2024-03-20] MEDS: TYLENOL 650 MG PO ×4 (00:05→21:46)
[2024-03-20] MEDS: MYLICON 80 MG PO (03:31)
[2024-03-20] MEDS: DULCOLAX 10 MG PO ×2 (03:31→22:17)
[2024-03-20] MEDS: REGLAN 10 MG IV (03:31)
[2024-03-20] MEDS: APRESOLINE 10 MG IV (03:46)
--- NOTE | 2024-03-20 04:00 | PTCARENOTE ---
pt w/ uncomfortable gas and bloating. orders for dulcolax, reglan, and simethicone per CT PA. SBP >160- 10mg hydralazine PRN order given. AM labs collected and sent.
[2024-03-20 04:32] LABS: Blood Urea Nitrogen 24 mg/dl (9-20); Calcium 8.8 mg/dl (8.4-10.2); Carbon Dioxide 26 mmol/L (22-30); Chloride 102 mmol/L (98-107); Estimated Creatinine Clearance > 125 ml/min; Glucose 112 mg/dl (70-99); Magnesium 1.8 mg/dl (1.6-2.3); Potassium 3.4 mmol/L (3.5-5.1); Sodium 134 mmol/L (135-145); eGFR > 60.00
--- NOTE | 2024-03-20 05:01 | W.PN.CT ---
Today's Communication / Plan
-
Plan:
-No major issues overnight. Hemodynamically and neurologically intact
-Chest tube currently on water seal, +tidaling, +1 intermittent air leak - more pronounced with cough. Drained 60/110
-CXR from 03/17 showed large right ptx after chest tube suction was transitioned to water seal, ptx resolved on -20 cmh20 wall suction
-CXR again on 03/20 showed recurrent ptx on water seal, appears stable
-CXR today 03/21 appears slight increased compared to yesterday's on my assessment. F/U official report
-F/U pathology, pending
-Increased Lopressor to 25 mg BID d/t hypertension and increased HR
-Replete K, 3.4
-OOB into chair/Ambulate
-Cont. DVT prophylaxis with SCDs and SQ Heparin
-Will not resume Zytiga for prostate Ca until 1 wk from surgery per Dr. Pradhan, resumed Prednisone on 03/18
-Likely home today with Heimlich valve
Assessment / Plan
-
Assessment:
-S/P Robotic assisted thoracic surgery, right upper lobectomy/Radical lymph node dissection/Diagnostic and therapeutic wedge resection of right middle lobe/ Intercostal nerve block using bupivacaine mixture, interspaces 4 through 8/ Right middle
lobe and right lower lobe pexy, 03/16/[address] Pradhan, pod #4
- Spiculated mass of the right upper lobe with atypical cells on biopsy-
- Hyperlipidemia
- Hypertension
- Colonic polyps
- Type 2 diabetes mellitus
- Emphysema/COPD
- History of tobacco abuse, quit in 2021, former [id number] smoking history
- JANKI not tolerant of CPAP
- Family history of cystic fibrosis
-Prostate Ca s/p robotic prostatectomy without nerve sparing and hormonal Tx, 08/30/2013 (on Zytiga and Prednisone)
-S/p cholecystectomy, 03/05/2016
-Acute postop blood loss anemia on chronic anemia (stable without blood transfusion)
-Acute postop hypokalemia
-Acute postop right ptx post chest tube transitioning to water seal
Discussed patient care with: Cardiology, Nursing, Respiratory Therapy, Pharmacy and Care Team
Subjective
Procedure
S/P Robotic assisted thoracic surgery, right upper lobectomy/Radical lymph node dissection/Diagnostic and therapeutic wedge resection of right middle lobe/ Intercostal nerve block using bupivacaine mixture, interspaces 4 through 8/ Right middle lobe
and right lower lobe pexy, 03/16/[address] Pradhan
-
Date of Service: March 20, 2024
Pt c/o gas pain/constipation last night, better after Simethicone
Objective Data
-
Lab Results
03/19/24 04:35
03/20/24 03:40
PT 14.2 Sec (11.4-14.6) 03/09/24 08:47
INR 1.10 03/09/24 08:47
APTT 27.4 Sec (23.4-35.0) 03/09/24 08:47
Vital Signs
Vital Signs
Temp Pulse Resp BP Pulse Ox
98.4 F 93 20 183/68 99
03/20/24 00:00 03/20/24 04:00 03/20/24 04:00 03/20/24 03:46 03/20/24 04:00
CT Intake/Output/Weight
03/19/24 03/19/24 03/20/24
06:59 18:59 06:59
Intake Total 400 / 400
Output Total 1130 / 1400 900 / 1510 610 / 1510
Balance -1130 / -920 -500 / -1110 -610 / -1110
SaO2: 99 (RA)
Physical Exam
-
General: Awake, Oriented and AOx3
Cardiovascular: Regular rate & rhythm, No Murmurs and No Gallop
Respiratory: Decreased Breath Sounds
Incision: Clean, Dry, Intact and Dressing Intact
Extremities: No Edema
Data Reviewed
-
Lab Results: Results Reviewed
Medications: Active Meds Reviewed
Chest X-Ray: Report Reviewed and Image Reviewed
ECG: Report Reviewed and Image Reviewed
[2024-03-20] MEDS: KCL 40 MEQ PO (05:29)
[2024-03-20] MEDS: MAGNESIUM OXIDE 500 MG PO ×2 (05:29→22:17)
[2024-03-20] MEDS: LOPRESSOR 25 MG PO ×2 (08:33→19:30)
[2024-03-20] MEDS: DELTASONE 5 MG PO (08:33)
[2024-03-20] MEDS: SENOKOT-S 1 TABLET PO ×2 (08:33→19:30)
[2024-03-20] MEDS: LIPITOR 10 MG PO (08:33)
[2024-03-20] MEDS: GLUCOPHAGE XR EXTENDED RELEASE 1000 MG PO (08:33)
[2024-03-20] MEDS: LIDOCAINE 4% PATCH 1 PATCH TOPICAL (08:33)
[2024-03-20] MEDS: THERAGRAN 1 TABLET PO (08:33)
[2024-03-20] MEDS: TRICOR 145 MG PO (08:33)
[2024-03-20] MEDS: NEURONTIN 300 MG PO ×3 (08:33→21:42)
[2024-03-20] MEDS: MUCINEX 600 MG PO ×2 (08:33→19:30)
[2024-03-20] MEDS: ORETIC 25 MG PO (08:33)
[2024-03-20] MEDS: HEPARIN 5000 UNITS SC ×2 (08:34→16:03)
[2024-03-20] MEDS: KCL 20 MEQ PO ×2 (08:34→21:42)
[2024-03-20] MEDS: ZESTRIL 10 MG PO (08:34)
[2024-03-20] MEDS: OSCAL 500 + D 500 MG PO (08:34)
[2024-03-20] MEDS: JANUVIA 100 MG PO (08:34)
[2024-03-20] MEDS: TRILEPTAL 300 MG PO (08:56)
--- NOTE | 2024-03-20 09:01 | PTCARENOTE ---
assumed care of pt from previous shift RN, sinus rhythm on tele w HR 80's, bp 151/76, + peripheral pulses, no edema noted. Lungs diminished pox 100% on RA. + bs, tolerating PO intake without nausea. Pt c/o constipation. Prune juice and fresh fruit
ordered on breakfast tray. Surgical sites intact. Right lateral CT placed to Heimlich valve by CT PA. Plan of care reviewed w the pt and questions encouraged.
[2024-03-20] MEDS: NOVOLOG FLEXPEN 5 UNITS SC ×2 (10:05→16:30)
[2024-03-20] MEDS: NOVOLOG FLEXPEN-MODERATE RESISTANCE SC ×3 (10:05→16:30)
[2024-03-20 11:39] LABS: Glucose - Point of Care 168 mg/dl (70-99)
[2024-03-20] MEDS: NOVOLOG FLEXPEN SC (14:26)
[2024-03-20] MEDS: TORADOL 15 MG IV (16:03)
[2024-03-20 16:30] LABS: Glucose - Point of Care 133 mg/dl (70-99)
[2024-03-20] MEDS: DULCOLAX 10 MG RECTAL (17:31)
[2024-03-20] MEDS: MILK OF MAGNESIA 30 ML PO (17:31)
--- NOTE | 2024-03-20 20:00 | PTCARENOTE ---
assumed care of pt from previous RN. pt A&Ox4, resting in bed at time of assessment. SR on tele monitor. palpable peripheral pulses. no edema noted. R pleural CT w/ heimlich valve. serosanguineous drainage. abd s/n, round. +BS. bowel regimen per
orders. pt voiding clear, trevor urine in bathroom. all surgical sites stable. PIV x2 intact. see worklist for complete nursing assessment, interventions, VS, and I&Os.
[2024-03-20] MEDS: LANTUS 0.22 UNITS SC (21:42)
[2024-03-20 21:43] LABS: Glucose - Point of Care 167 mg/dl (70-99)
[2024-03-21] MEDS: HEPARIN 5000 UNITS SC ×2 (00:04→08:07)
[2024-03-21 00:06] VITALS: BP 173/81
[2024-03-21] MEDS: APRESOLINE 10 MG IV (00:09)
--- NOTE | 2024-03-21 00:13 | PTCARENOTE ---
assessment remains unchanged. PRN hydralazine given per order. SR on tele-monitor. CT drainage WNL.
[2024-03-21 00:51] VITALS: BP 151/75
[2024-03-21 02:58] VITALS: BP 174/80
[2024-03-21 03:20] VITALS: BP 154/78
[2024-03-21 03:26] LABS: Blood Urea Nitrogen 20 mg/dl (9-20); Calcium 8.9 mg/dl (8.4-10.2); Carbon Dioxide 27 mmol/L (22-30); Chloride 102 mmol/L (98-107); Estimated Creatinine Clearance > 125 ml/min; Glucose 143 mg/dl (70-99); Potassium 3.7 mmol/L (3.5-5.1); Sodium 134 mmol/L (135-145); eGFR > 60.00
--- NOTE | 2024-03-21 03:47 | W.PN.CT ---
Today's Communication / Plan
-
Plan:
-No major issues overnight. Hemodynamically and neurologically intact
-Chest tube transitioned to Heimlich valve yesterday 03/20/24. Ptx has improved on cxr this AM on my assessment
-F/U official cxr report
-Was complaining of constipation yesterday but had a BM
-Will not resume Zytiga for prostate Ca until 1 wk (03/23/24) from surgery per Dr. Pradhan, resumed Prednisone on 03/18
-OOB into chair/Ambulate
-F/U pathology, pending this AM
-D/C home today
Assessment / Plan
-
Assessment:
-S/P Robotic assisted thoracic surgery, right upper lobectomy/Radical lymph node dissection/Diagnostic and therapeutic wedge resection of right middle lobe/ Intercostal nerve block using bupivacaine mixture, interspaces 4 through 8/ Right middle
lobe and right lower lobe pexy, 03/16/[address] Pradhan, pod #5
- Spiculated mass of the right upper lobe with atypical cells on biopsy-
- Hyperlipidemia
- Hypertension
- Colonic polyps
- Type 2 diabetes mellitus
- Emphysema/COPD
- History of tobacco abuse, quit in 2021, former [id number] smoking history
- JANKI not tolerant of CPAP
- Family history of cystic fibrosis
-Prostate Ca s/p robotic prostatectomy without nerve sparing and hormonal Tx, 08/30/2013 (on Zytiga and Prednisone)
-S/p cholecystectomy, 03/05/2016
-Acute postop blood loss anemia on chronic anemia (stable without blood transfusion)
-Acute postop hypokalemia
-Acute postop right ptx post chest tube transitioning to water seal
-Acute postop constipation
Discussed patient care with: Nursing, Respiratory Therapy, Pharmacy and Care Team
Subjective
Procedure
S/P Robotic assisted thoracic surgery, right upper lobectomy/Radical lymph node dissection/Diagnostic and therapeutic wedge resection of right middle lobe/ Intercostal nerve block using bupivacaine mixture, interspaces 4 through 8/ Right middle lobe
and right lower lobe pexy, 03/16/[address] Pradhan
-
Date of Service: March 21, 2024
Pt c/o mild incisional pain, had bowel movement yesterday, ambulating halls without difficulty
Objective Data
-
Lab Results
03/19/24 04:35
03/21/24 03:05
PT 14.2 Sec (11.4-14.6) 03/09/24 08:47
INR 1.10 03/09/24 08:47
APTT 27.4 Sec (23.4-35.0) 03/09/24 08:47
Vital Signs
Vital Signs
Temp Pulse Resp BP Pulse Ox
98.0 F 80 18 173/81 98
03/21/24 03:00 03/21/24 00:06 03/21/24 03:00 03/21/24 00:09 03/21/24 03:00
CT Intake/Output/Weight
03/20/24 03/20/24 03/21/24
06:59 18:59 06:59
Output Total 1230 / 2130 1700 / 2200 500 / 2200
Balance -1230 / -1730 -1700 / -2200 -500 / -2200
SaO2: 98 (RA)
Physical Exam
-
General: Awake, Oriented and AOx3
Cardiovascular: Regular rate & rhythm and No Murmurs
Respiratory: Decreased Breath Sounds
Incision: Clean, Dry, Intact and Dressing Intact
Extremities: No Edema
Data Reviewed
-
Lab Results: Results Reviewed
Medications: Active Meds Reviewed
Chest X-Ray: Report Reviewed and Image Reviewed
ECG: Report Reviewed and Image Reviewed
[2024-03-21 06:00] VITALS: BMI 30.4
--- NOTE | 2024-03-21 07:56 | W.DCSUMMARY ---
Discharge Summary
Discharge Data
Date of Admission: 03/16/24
Date of Discharge: 03/21/24
-
Pending Results: Yes (surgical pathology from 03/16/24)
Hospital Course
Primary care physician: Rajni Gomez
Outpatient scale attendant: Juan Manuel Falk
Inpatient consultants: Pulmonary Medicine
Procedures:
1. Robotic assisted thoracic surgery, right upper lobectomy, radical lymph node dissection, diagnostic and therapeutic wedge resection of right middle lobe
Primary Diagnosis:
1. Spiculated right upper lobe mass with atypical cells on biopsy
Secondary Diagnoses:
1. Prostate cancer on chronic prednisone
2. Type 2 diabetes (A1c 6.4)
3. Interstitial lung disease
4. Emphysema
5. Hypertension
6. Obstructive sleep apnea intolerant to CPAP
7. Hyperlipidemia
HPI: 68-year-old male was electively admitted on 03/16/2029 for right upper lobe lobectomy and wedge resection of right middle lobe due to spiculated right upper lung mass
Hospital course: Patient underwent robotic assisted thoracic surgery, right upper lobectomy, radical lymph node dissection, diagnostic and therapeutic wedge resection of right middle lobe with Dr. Kelton Pradhan. Patient was extubated in the
operating room. Patient also had Rojas removed in the operating room. An air leak was noted in the chest tube and patient continued on -20 cm suction. On postoperative day 1, the patient underwent water seal trial and developed worsening
pneumothorax. Patient was placed back on -20 cm of suction. Patient continued to have intermittent air leak on postoperative day #2. While getting into the chair, patient fell on his knees. There was no loss of consciousness. There was no
injury. Postoperative day #3, chest tube was again placed to water seal. Follow-up chest x-ray noted worsening pneumothorax and a Heimlich valve was placed. The morning chest x-ray on 03/21 showed improvement of pneumothorax and patient will be
discharged home with a Heimlich valve in place. Patient will resume Abiraterone on 03/23/2024. Metoprolol tartrate will continue for hypertension and atrial fibrillation prophylaxis. A prescription for repeat PA and lateral chest x-ray was given
to patient with instructions to complete in 1 week. Surgical pathology from 03/16 is pending and will need follow-up. Patient is deemed stable for discharge to home.
Home medication changes:
Lopressor for HTN and A-Fib prophylaxis
Tylenol, Oxycodone, Gabapentin, Flexeril, and Lidocaine patch for pain control
Discharge Plan
-
Patient Disposition: Home (Routine Discharge)
Discharge Diagnosis/Procedures: Right wedge resection
Condition: Good
Diet: Diabetic, Carb Controlled
Activity: No strenuous activity
Driving Restrictions: No driving for 2 weeks
Bathing Restrictions: OK to Shower
Others Tests: CXR (PA & lat) in 1 week
Specialty Instructions: Weigh Daily- Call MD for wt gain/loss 3 lbs overnight/5 lbs in 1 week
Referrals:
CT Transitional Care Nurse [Outside] (The Cardiothoracic Transitional Care Nurse will call you to set up a visit in 1-2 days.)
Rajni Gomez CRNP [Family Provider] -
Juan Manuel Carr MD [Active] - (As scheduled in March)
Kelton Pradhan MD [Active] - 04/06/24 1:45 pm
Additional Discharge Medication Instructions: resume Zytiga in 1 week
Prescriptions:
New
acetaminophen 325 mg Tablet
650 mg PO Q4HPRN PRN (Reason: temp >102 F and/or mild pain) Qty: 0 0RF
cyclobenzaprine 10 mg Tablet
5 mg PO Q8HPRN PRN (Reason: muscle spasm) Qty: 20 0RF
lidocaine 4 % Adhesive Patch,Medicated
1 patch topical DAILY Qty: 30 0RF
gabapentin 300 mg Capsule
300 mg PO TID Qty: 30 0RF
metoprolol tartrate 25 mg Tablet
25 mg PO BID Qty: 60 1RF
oxycodone 10 mg Tablet
10 mg PO Q6HPRN PRN (Reason: severe pain) Qty: 30 0RF
Remove Patch [Remove Lidocaine Patch]
1 patch topical DAILY@1999 Qty: 0 0RF
Continued
Janumet XR 1 EACH tablet, ER multiphase 24 hr
1 ea PO DAILY
fenofibrate nanocrystallized 145 MG tablet
145 mg PO DAILY Qty: 1 0RF
atorvastatin 10 MG tablet
10 mg PO DAILY
prednisone 5 MG tablet
5 mg PO DAILY
insulin glargine [Lantus Solostar U-100 Insulin] 300 UNITS/3 ML insulin pen
22 units SC HS
calcium-vitamin D3-vitamin K 1 EACH tablet,chewable
1 ea PO DAILY
insulin lispro [Humalog KwikPen Insulin] 100 unit/mL Insulin Pen
10 unit SC AC
Rx Instructions:
Sliding scale w/ meals
lisinopril 10 mg Tablet
10 mg PO DAILY
oxcarbazepine 300 mg Tablet
300 mg PO DAILY
hydrochlorothiazide 25 mg Tablet
25 mg PO DAILY
Held
abiraterone [Zytiga] 500 mg Tablet
1,000 mg PO HS
Hold Instructions: Resume on 03/23/24.
Discharge Orders:
Discharge Patient (As Directed); Ordered 03/21/24
Ordered By: Naz Singer
Care Plan Goals
Care Plan Goals:
Problem: Readiness for enhanced knowledge related to diagnosis and treatment plan
Goal: Understand your diagnosis and treatment plan needs, including medications if applicable.
Instructions: Know your diagnosis, underlying causes and treatment plan options, including medications if applicable. Consult with your health care team to learn about your diagnosis and treatment plan, including medications if applicable.
Discharge Date and Time
Print Language: CANADIAN
[2024-03-21 08:06] VITALS: BP 132/77
[2024-03-21] MEDS: FLEXERIL 5 MG PO (08:06)
[2024-03-21] MEDS: THERAGRAN 1 TABLET PO (08:06)
[2024-03-21] MEDS: MUCINEX 600 MG PO (08:06)
[2024-03-21] MEDS: OSCAL 500 + D 500 MG PO (08:06)
[2024-03-21] MEDS: TRICOR 145 MG PO (08:07)
[2024-03-21] MEDS: DELTASONE 5 MG PO (08:07)
[2024-03-21] MEDS: SENOKOT-S 1 TABLET PO (08:07)
[2024-03-21] MEDS: TYLENOL 650 MG PO (08:07)
[2024-03-21] MEDS: JANUVIA 100 MG PO (08:07)
[2024-03-21] MEDS: LOPRESSOR 25 MG PO (08:07)
[2024-03-21] MEDS: GLUCOPHAGE XR EXTENDED RELEASE 1000 MG PO (08:07)
[2024-03-21] MEDS: NEURONTIN 300 MG PO (08:07)
[2024-03-21] MEDS: TRILEPTAL 300 MG PO (08:07)
[2024-03-21] MEDS: ORETIC 25 MG PO (08:07)
[2024-03-21] MEDS: ZESTRIL 10 MG PO (08:07)
[2024-03-21] MEDS: LIPITOR 10 MG PO (08:07)
[2024-03-21] MEDS: KCL 20 MEQ PO (08:07)
[2024-03-21] MEDS: LIDOCAINE 4% PATCH TOPICAL (08:08)
[2024-03-21] MEDS: NOVOLOG FLEXPEN 5 UNITS SC (08:12)
[2024-03-21] MEDS: NOVOLOG FLEXPEN-MODERATE RESISTANCE SC (08:12)
--- NOTE | 2024-03-21 08:17 | PTCARENOTE ---
assumed care of pt from previous shift RN, sinus rhythm- sinus tachycardia on tele, 132/77, + peripheral pulses, no edema noted. Lungs diminished, pox 100% on RA. +bs, voids spontaneously. Surgical sites intact, CT site intact. Pt is for discharge.
Morning medications administered. Plan of care reviewed and questions encouraged.
--- NOTE | 2024-03-21 09:10 | PTCARENOTE ---
Tele monitor and IV lines removed. Discharge instructions, medication list, follow up appointments and dressing changes reviewed w the pt and his . Questions encouraged. Emotional support provided.
== END 2024-03-21 09:35 | disposition home or self-care (01) | DRG 164 ==
LOC: CVICU 05:10
PROVIDERS: Clinical Nurse Specialist Acute Care; Nurse Practitioner; Physician Assistant Medical; ADMITTING PHYSICIAN Thoracic Surgery (Cardiothoracic Vascular Surgery); FAMILY PHYSICIAN Nurse Practitioner Family; OTHER PHYSICIAN Internal Medicine Critical Care Medicine
PROC: 07T74ZZ Resection of Thorax Lymphatic, Percutaneous Endoscopic Approach (ICD-10-PCS; 2024-03-16)
PROC: 0BTC4ZZ Resection of Right Upper Lung Lobe, Percutaneous Endoscopic Approach (ICD-10-PCS; 2024-03-16)
PROC: 0BBD4ZZ Excision of Right Middle Lung Lobe, Percutaneous Endoscopic Approach (ICD-10-PCS; 2024-03-16)
PROC: 8E0W4CZ Robotic Assisted Procedure of Trunk Region, Percutaneous Endoscopic Approach (ICD-10-PCS; 2024-03-16)
DX: C34.11 Malignant neoplasm of upper lobe, right bronchus or lung (principal); D62 Acute posthemorrhagic anemia; J84.9 Interstitial pulmonary disease, unspecified; J95.811 Postprocedural pneumothorax; R59.0 Localized enlarged lymph nodes; E11.9 Type 2 diabetes mellitus without complications; J43.9 Emphysema, unspecified; I10 Essential (primary) hypertension; E78.5 Hyperlipidemia, unspecified; G47.33 Obstructive sleep apnea (adult) (pediatric); E87.6 Hypokalemia; K59.09 Other constipation; Y83.6 Removal of other organ (partial) (total) as the cause of abnormal reaction of the patient, or of later complication, without mention of misadventure at the time of the procedure; Z79.4 Long term (current) use of insulin; Z79.52 Long term (current) use of systemic steroids; Z79.899 Other long term (current) drug therapy; Z83.6 Family history of other diseases of the respiratory system; Z85.46 Personal history of malignant neoplasm of prostate; Z87.891 Personal history of nicotine dependence
CPT/HCPCS: 88305; 88307; 88309; 32505; 36415; 71045; 80048; 80053; 81003; 82248; 82962; 83036; 83735; 85025; 85027; 85610; 85730; 86850; 86900; 86901; 87070; 88341; 88342; 93005; 93880

== ENCOUNTER 2024-03-27 18:45 | Inpatient (IN) | payer BC, OTHER, SELFPAY ==
[2024-03-27] VITALS (21 sets, daily range): BP systolic 84–140; BP diastolic 53–122; BMI 30.6
--- NOTE | 2024-03-27 16:32 | ED.GENMED ---
History of Present Illness
General
Chief Complaint: Change in Mental Status
Source: patient and family
Exam Limitations: none
Time Seen by Provider: 03/27/24 16:24
History of Present Illness
History of Present Illness:
See MDM
Past History
Past History
ED Past Medical History: Cancer (prostate), HTN, Hypercholesterolemia and IDDM
ED Past Surgical History: Cholecystectomy and Urological
Social History
Tobacco: Smoker
Alcohol: Occasional
Drug: None
Personal:
Living: alone
Phy Exam
Physical Exam
Physical Exam:
See MDM
Course
Orders/Labs/Results
Orders:
Orders
03/27/24 16:30
0.9% Sodium Chloride 1000 ml [Nss] 1,000 ml IV BOLUS
Acetaminophen [Tylenol] 1,000 mg PO NOW STA
CR Chest - 2 Views Urgent
Comment:
Reason For Exam: SOB, recent RUL surgery
03/27/24 16:46
COVID-19 Antigen Urgent
Source: Nasal Swab
Complete Blood Count/With Diff Urgent
Comprehensive Metabolic Panel Urgent
Lactic Acid Q4H
Comment: CANCEL 2nd LACTIC ACID IF 1st LACTIC ACID IS LESS THAN 2
Blood Culture Urgent
ALENA Source: Blood/Venous
Specimen Description:
Influenza A+B Rapid Molecular Urgent
ALENA Source: Nasal Swab
Specimen Description:
03/27/24 17:18
0.9% Sodium Chloride 1000 ml [Nss] 1,000 ml IV BOLUS
Piperacillin/Tazo 3.375 Gram [Zosyn] 3.375 gram in 50 ml IV NOW
03/27/24 17:21
Vancomycin [Vancocin] 2,000 mg 0.9% Sodium Chloride 500 ml [Nss] 500 ml IV NOW
03/27/24 20:30
Lactic Acid Q4H
Comment: CANCEL 2nd LACTIC ACID IF 1st LACTIC ACID IS LESS THAN 2
Abnormal Lab Results
03/27/24
16:46
WBC 32.9 H 10^3/uL
(4.8-10.8)
RBC 4.14 L 10^6/uL
(4.70-6.10)
Hgb 11.8 L g/dL
(13.0-18.0)
Hct 34.2 L %
(39.0-52.0)
Plt Count 426 H 10^3/uL
(130-400)
Abs Immat Gran (auto) 0.4 H 10^3/uL
(0-0.05)
Absolute Neuts (auto) 30.9 H 10^3/uL
(1.4-6.5)
Absolute Lymphs (auto) 0.7 L 10^3/uL
(1.2-3.4)
Immature Gran % 1.2 H %
(0-0.5)
Neutrophils % 93.8 H %
(42.2-75.2)
Lymphocytes % 2.1 L %
(20.5-51.1)
Sodium 129 L mmol/L
(135-145)
Chloride 95 L mmol/L
(98-107)
BUN 25 H mg/dl
(9-20)
Creatinine 1.7 H mg/dL
(0.7-1.3)
Glucose 196 H mg/dl
(70-99)
Lactic Acid 4.0 H* mmol/L
(0.7-2.0)
Total Protein 5.9 L g/dl
(6.3-8.2)
Albumin 3.1 L g/dl
(3.5-5.0)
03/27/24 16:46
03/27/24 16:46
Vital Signs
Initial and Last Documented VS:
Initial Vital Signs
Temp Pulse Resp BP Pulse Ox
99.8 F 115 18 84/53 97
03/27/24 16:08 03/27/24 16:08 03/27/24 16:08 03/27/24 16:08 03/27/24 16:08
Last Documented Vital Signs
Temp Pulse Resp BP Pulse Ox
100.8 F H 103 33 126/72 97
03/27/24 16:30 03/27/24 17:15 03/27/24 17:15 03/27/24 17:15 03/27/24 16:08
MDM/Problems Addressed
Differential Diagnosis Includes:
HPI and MDM Narrative:
68-year-old male presenting for evaluation of fever and confusion. Patient just had right upper lobe lung surgery for spiculated mass. He does have chest tube with drainage. His has been draining the tube every day but noticed that there has
been increase in fluid. She noted that he seemed confused earlier today and she noted that he was febrile. Patient denies headache, abdominal pain or urinary symptoms. Patient noted to have a slight cough. Given the recent surgery, will obtain
chest x-ray rule out pneumonia versus atelectasis. Given the fever, will obtain blood cultures and blood work. Confusion likely related to his hypotension. Will obtain lactic acid to rule out evidence of severe sepsis
Physical exam
General: Weak and confused
HEENT: protecting airway. Dry mucous membranes
Neck: supple
CV: No evidence of cyanosis. Tachycardic
Chest: Right lateral chest tube site clean and intact. Straw-colored drainage noted in tubing
Resp: No accessory muscle use
Abd: Non-distended. Soft and nontender
Extremities: No deformities
Neuro: alert
Psych: Normal affect
Skin: Warm
Problems Addressed including Acute and Chronic Conditions affecting care:
1. Fever
Acuity: acute
Prognosis: stable
Details: Likely in the setting of pneumonia versus atelectasis status post surgery. Will obtain blood culture and lactic acid.
2. Hypotension
Acuity: acute
Prognosis: unstable
Details: Likely in the setting of fever and dehydration. Will give IV fluids and obtain lactic acid to rule out evidence of severe sepsis
Updates
Patient found to have elevated white blood cell count and elevated lactic acid. Blood pressure is improving after 1 L of IV fluids. No obvious pneumonia on chest x-ray but given the lab abnormalities and fever and recent surgery, will start
vancomycin and Zosyn.
Differential Diagnosis (but not limited to): Pneumonia, atelectasis, COVID
Testing considered: Chest CT
Drug therapy (if applicable): OTC meds, please see d/c instruction regarding Rx drugs
Amount and/or Complexity of Data Reviewed
Clinical info obtained from: Patient
External data reviewed: Patient recently had a right upper lobectomy and still has chest tube in place
Labs I independently reviewed (but not limited to): Leukocytosis, elevated lactic acid
Radiology: X-ray independently reviewed: Chest x-ray without obvious pneumonia
Pulse Ox: not hypoxic
EKG independently reviewed: N/A
Vending Supervisor: Sinus tachycardic
Critical Care: N/A
Risk of Complication:
Social Determinants of health: Good social support
Discussed with other providers: Hospitalist
Escalation of Care includes Admit/Obs: Given fever of lab abnormalities, will start IV antibiotics and admit
Occasional wrong word or 'sound a like' substitutions may have occurred due to the inherent limitations of voice recognition software. Read the chart carefully and recognize, using context, where substitutions have occurred.
*Critical Care Note
Total Time (30-74mins, 75-104mins- exclusive of procedures): Not Applicable
ED Attending Note
-
Portions of this chart may have been created with voice recognition software.� Occasional wrong word or��sound alike� substitutions may have occurred due to the inherent limitations of voice recognition software.
Discharge Plan
Departure
Patient Disposition: Admit
Date of Disposition: 03/27/24
Time of Disposition: 17:28
Admit to: Med/Surg
Presentation/result/management discussed w/ accepting MD/DO: Hospitalist
Discharge Problem:
Fever
Prescriptions:
No Action
Janumet XR 1 EACH tablet, ER multiphase 24 hr
1 ea PO DAILY
fenofibrate nanocrystallized 145 MG tablet
145 mg PO DAILY Qty: 1 0RF
atorvastatin 10 MG tablet
10 mg PO DAILY
prednisone 5 MG tablet
5 mg PO DAILY
insulin glargine [Lantus Solostar U-100 Insulin] 300 UNITS/3 ML insulin pen
22 units SC HS
calcium-vitamin D3-vitamin K 1 EACH tablet,chewable
1 ea PO DAILY
insulin lispro [Humalog KwikPen Insulin] 100 unit/mL Insulin Pen
10 unit SC AC
Rx Instructions:
Sliding scale w/ meals
lisinopril 10 mg Tablet
10 mg PO DAILY
oxcarbazepine 300 mg Tablet
300 mg PO DAILY
abiraterone [Zytiga] 500 mg Tablet
1,000 mg PO HS
Hold Instructions: Resume on 03/23/24.
hydrochlorothiazide 25 mg Tablet
25 mg PO DAILY
acetaminophen 325 mg Tablet
650 mg PO Q4HPRN PRN (Reason: temp >102 F and/or mild pain) Qty: 0 0RF
cyclobenzaprine 10 mg Tablet
5 mg PO Q8HPRN PRN (Reason: muscle spasm) Qty: 20 0RF
lidocaine 4 % Adhesive Patch,Medicated
1 patch topical DAILY Qty: 30 0RF
gabapentin 300 mg Capsule
300 mg PO TID Qty: 30 0RF
metoprolol tartrate 25 mg Tablet
25 mg PO BID Qty: 60 1RF
oxycodone 10 mg Tablet
10 mg PO Q6HPRN PRN (Reason: severe pain) Qty: 30 0RF
Remove Patch [Remove Lidocaine Patch]
1 patch topical DAILY@1999 Qty: 0 0RF
Referrals:
Rajni Gomez CRNP [Family Provider] -
Interventions
Interventions:
*Risk Screen - Suicide Last Done: 03/27/24 16:36
*General Assessment Last Done: 03/27/24 16:36
*Neglect/Abuse Screening Last Done: 03/27/24 16:36
*ED COVID-19 Vaccine History Last Done: 03/27/24 16:36
ED- Pulmonary Assessment Last Done: 03/27/24 16:37
ED- Neurological Assessment Last Done: 03/27/24 16:37
ED- Cardiac Assessment Last Done: 03/27/24 16:53
ED Swallowing Screen Last Done: 03/27/24 16:52
Discharge Date and Time
Print Language: SIER[place] LEONEAN
[2024-03-27] MEDS: TYLENOL 1000 MG PO (16:43)
[2024-03-27] MEDS: NSS 1000 IV ×3 (16:45→20:22)
[2024-03-27 16:54] LABS: % Basophils 0.3 % (0-2); % Eosinophils 0.8 % (0-6); % Immature Granulocytes 1.2 % (0-0.5); % Lymphocytes 2.1 % (20.5-51.1); % Monocytes 1.8 % (1.7-9.3); % Neutrophils 93.8 % (42.2-75.2); Absolute Basophils 0.1 10^3/uL (0-0.2); Absolute Eosinophils 0.3 10^3/uL (0-0.7); Absolute Immature Granulocytes 0.4 10^3/uL (0-0.05); Absolute Lymphocytes 0.7 10^3/uL (1.2-3.4); Absolute Monocytes 0.6 10^3/uL (0.1-0.6); Absolute Neutrophils 30.9 10^3/uL (1.4-6.5); Hematocrit 34.2 % (39.0-52.0); Hemoglobin 11.8 g/dL (13.0-18.0); Mean Corp Hgb Conc. 34.5 g/dL (33.0-37.0); Mean Corpuscular Hgb 28.5 pg (27.0-31.0); Mean Corpuscular Volume 82.6 fL (80.0-94.0); Mean Platelet Volume 8.9 fL (7.4-10.4); Nucleated Red Blood Cells % 0 % (-); Platelet Count 426 10^3/uL (130-400); Red Blood Cell Count 4.14 10^6/uL (4.70-6.10); Red Cell Dist. Width 13.2 % (11.5-14.5); White Blood Cell Count 32.9 10^3/uL (4.8-10.8)
[2024-03-27 17:07] LABS: ALT (SGPT) 24 U/L (0-50); AST (SGOT) 27 U/L (17-59); Albumin 3.1 g/dl (3.5-5.0); Alkaline Phosphatase 106 U/L (38-126); Blood Urea Nitrogen 25 mg/dl (9-20); Calcium 8.7 mg/dl (8.4-10.2); Carbon Dioxide 23 mmol/L (22-30); Chloride 95 mmol/L (98-107); Estimated Creatinine Clearance 57 ml/min; Glucose 196 mg/dl (70-99); Potassium 4.7 mmol/L (3.5-5.1); Sodium 129 mmol/L (135-145); Total Bilirubin 1.1 mg/dl (0.2-1.3); Total Protein 5.9 g/dl (6.3-8.2); eGFR 43.64
[2024-03-27 17:11] LABS: COVID-19 Antigen Negative (Negative)
--- NOTE | 2024-03-27 17:32 | HPS.HSE ---
Family Physician
-
Family Physician: MONA Goodson
Chief Complaint
-
fever
History of Present Illness
HPI: 68-year-old male with PMH recent right upper lobe lobectomy and wedge resection of right middle lobe on 03/16/2024 for spiculated right upper lung mass, Prostate cancer on chronic prednisone, Type 2 diabetes, Interstitial lung disease/ Emphysema,
Hypertension, Obstructive sleep apnea intolerant to CPAP, Hyperlipidemia; p/w fever noticed by his , which started on the DOA. He still has his chest tube from recent surgery.
He denies to significant cough, CP, etc. He endorses to chronic back pain which has not changed recently.
He denies to other symptoms such as abdominal pain, urinary symptoms etc.
In the ED, he was noted to have WBC 30s and Lactic 4. Given vanc/zosyn and admitted for sepsis.
Medical History
Past Medical History
Past Medical History: Reports Other
Additional Past Medical History:
Right upper lobe lobectomy and wedge resection of right middle lobe on 03/16/2024 for spiculated right upper lung mass
Prostate cancer on chronic prednisone
IDDM
Interstitial lung disease/ Emphysema
Hypertension
Obstructive sleep apnea intolerant to CPAP
Hyperlipidemia
Past Surgical History: Reports Other
Additional Past Surgical History:
Right upper lobe lobectomy and wedge resection of right middle lobe on 03/16/2024 for spiculated right upper lung mass
prostate surgery
Social History
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
Alcohol: None
Personal:
Living: With Family
Family History
Family History: Not pertinent
Allergies / Home Medications
Allergies reflects when Allergies were last updated in [facility] [employer].
Home Medications with original date entered in [employer]
Allergy/Medication List:
Medications on admission are unable to be verified or confirmed at this time.
Review of Systems
-
Constitutional: Reports Fever
Respiratory: Denies Cough or Trouble Breathing
Cardiac: Denies Chest Pain
Abdomen/GI: Denies Abdominal Pain
: Denies Dysuria or Frequency
Physical Exam
Vital Signs
Vital Signs
Temp Pulse Resp BP Pulse Ox
38.2 C H 103 33 126/72 97
03/27/24 16:30 03/27/24 17:15 03/27/24 17:15 03/27/24 17:15 03/27/24 16:08
Physical Exam
General: Well Developed, Well Nourished, No Apparent Distress, Comfortable and Conversant
HEENT: NormoCephalic, Moist mucous membranes and Atraumatic
Respiratory: Clear, Non Labored Respirations and Chest Tube (Right); No Accessory Resp Muscle Use
Cardiac: S1/S2 and Regular Rhythm; No Murmur or Rub
GI: Soft, Non Tender, Non Distended and Normal Bowel Sounds; No Organomegaly
Rectal: Deferred by Provider
Musculoskeletal: No Clubbing, No Cyanosis and No Edema
Skin: No Rash
Neuro: Awake and Alert
Psych: Calm and Intact Judgment/Insight
Laboratory Results
-
03/27/24 16:46
03/27/24 16:46
Laboratory Results
Lactic Acid 4.0 mmol/L (0.7-2.0) H* 03/27/24 16:46
Total Bilirubin 1.1 mg/dl (0.2-1.3) 03/27/24 16:46
AST 27 U/L (17-59) 03/27/24 16:46
ALT 24 U/L (0-50) 03/27/24 16:46
Alkaline Phosphatase 106 U/L (38-126) 03/27/24 16:46
Data Reviewed
-
Diagnostic Radiology: Image Personally Visualized and interpreted and Report Reviewed by me
Lab Data: Labs Reviewed by me
Impression/Plan
-
HPI: 68-year-old male with PMH recent right upper lobe lobectomy and wedge resection of right middle lobe on 03/16/2024 for spiculated right upper lung mass, Prostate cancer on chronic prednisone, Type 2 diabetes, Interstitial lung disease/ Emphysema,
Hypertension, Obstructive sleep apnea intolerant to CPAP, Hyperlipidemia; p/w fever noticed by his , which started on the DOA. He still has his chest tube from recent surgery.
He denies to significant cough, CP, etc. He endorses to chronic back pain which has not changed recently.
He denies to other symptoms such as abdominal pain, urinary symptoms etc.
In the ED, he was noted to have WBC 30s and Lactic 4. Given vanc/zosyn and admitted for sepsis.
A/P:
# Presumed Severe sepsis POA, unclear source
# Immune compromised state on chronic prednisone for Prostate cancer
His CXR is unrevealing: noted suspect stable trace right apical pneumothorax.
s/p IVF bolus in ED, cont maintenance IVF
Follow blood culture
Check MRSA screen
COVID/Flu negative
cont vanc/zosyn
Pulm CS
ID CS
# KEISHA
SCr 1.7 from baseline 0.6
cont IVF
Hold TEST BORER ACEI with KEISHA
Trend SCr
# recent right upper lobe lobectomy and wedge resection of right middle lobe due to spiculated right upper lung mass on 03/16/2024
Cont TEST BORER Chest tube
Pulm CS
Other medical conditions:
# Prostate cancer on chronic prednisone
# IDDM
Cont lower doses of TEST BORER Lantus and Lispro: Lantus at 15 units HS (22 units TEST BORER), and Aspart at 5 units AC (10 units TEST BORER)
cover with ISS
Carb control diet
# Interstitial lung disease
# Emphysema
# Hypertension
Hold TEST BORER ACEI with KEISHA
Hold TEST BORER BP meds with current stable BP and severe sepsis
# Obstructive sleep apnea intolerant to CPAP
# Hyperlipidemia
DVT ppx: HSQ
FC
[2024-03-27] MEDS: ZOSYN 50 IV (17:42)
[2024-03-27] MEDS: VANCOCIN 540 MG IV (18:15)
--- NOTE | 2024-03-27 19:00 | EDRN ---
Report received, patient was to be telemetry however was informed because of lactic he needs to be IMU, spoke with hospitalist who is changing it, patient resting comfortably at this time.
--- NOTE | 2024-03-27 20:29 | EDRN ---
went in to redraw lactic, started fluids that had been ordered previously, patient resting comfortably at this time with family at bedside.
--- NOTE | 2024-03-27 22:04 | PHA.VAN.IN ---
Assessment
- Assessment
Renal Function: Appears elevated from baseline (SCr 1.7 - up from 0.6)
Maximum Temperature: 100.8
Concomitant Antimicrobials: piperacillin-tazobactam
Plan
- Plan
Initial / Loading Dose: vanc 2000 mg (18 mg/kg) 03/27 18:15
Maintenance Regimen: dose by level
Monitoring: r 03/27 am
Pharmacokinetics Vancomycin I
- -
Patient Age: 68
Patient Sex: Male
Vancomycin Day #: 1
Indication: Other
Requesting Provider: Dr No
Pertinent Antimicrobial Allergies:
no known allergies
Height / Weight:
Height 6 ft 3 in
Actual Weight 110.949 kg
Pertinent Past Medical History: lobectomy and wedge resection 03/16/24; prostate cancer
- Vital Signs / Lab Results
Temp Pulse Resp BP Pulse Ox
98.4 F 84 23 102/60 97
03/27/24 21:38 03/27/24 20:30 03/27/24 20:30 03/27/24 20:15 03/27/24 16:08
Lab Results - Hematology
03/27/24
16:46
WBC 32.9 H
Lab Results - Chemistry
03/27/24
16:46
BUN 25 H
Creatinine 1.7 H
Estimated Creat Clear 57
Albumin 3.1 L
03/27/24 03/27/24
16:46 20:20
Lactic Acid 4.0 H* 1.0
Microbiology Results
03/27/24 16:46 Influenza Types A & B (JINNY) - Final
Nasal Swab Negative for Influenza A & B, NAAT
Negative results must be combined with clinical observations
and patient history.
Nucleic Acid Amplification test (NAAT)performed on the
[employer] platform.
[2024-03-27 22:26] LABS: Glucose - Point of Care 157 mg/dl (70-99)
[2024-03-27] MEDS: LANTUS 0.15 UNITS SC (22:35)
[2024-03-27] MEDS: HEPARIN 5000 UNITS SC (22:36)
[2024-03-27] MEDS: NEURONTIN 300 MG PO (22:36)
--- NOTE | 2024-03-27 23:04 | W.PN.UPDATE ---
Update Note
Progress Note Update
Notified by RN, patient admitted from home with right 'chest tube connected to a presley bag' and concerns for leaking around the insertion site and connection area. Upon assessment, patient noted to have right chest tube with Heimlich valve (placed
03/20/24 s/p right upper lobectomy) which patient was sent home with last admission that was to be removed outpt by cardiac surgery on 03/28/24, but admitted today for fever. Patient's chest tube site and tube connection sites currently CDI - tape
reinforced and collection bag exchanged by nursing. Patient denies SOB or pain at the site. No subQ emphysema noted, lungs CTA. Discussed case with on-call pulmonary Dr. Trista Evans - no immediate intervention recommendation given. Rx cardiac surgery
consult. Nursing to continue to monitor.
--- NOTE | 2024-03-27 23:39 | PTCARENOTE ---
Received pt from ED RN. Pt is AAOx3, forgetful @ times, drowsy. NSR on the monitor. On RA O2 sat 96%. Pt with right posterior chest tube with a Heimlich valve connected to a drainage bag. MONA Banerjee notified and evaluated the pt (see report). Site was
draining and bag was leaking, site redressed and the bag was exchanged. CHG bath provided. Pt is laying comfortable in bed with call ramirez in reach.
[2024-03-28] VITALS (12 sets, daily range): BP systolic 100–143; BP diastolic 52–70
[2024-03-28] MEDS: TYLENOL 650 MG PO ×2 (00:15→10:49)
[2024-03-28] MEDS: ZOSYN 50 IV ×4 (00:16→18:18)
[2024-03-28 04:20] LABS: Hematocrit 28.6 % (39.0-52.0); Mean Corpuscular Hgb 27.8 pg (27.0-31.0); Mean Corpuscular Volume 79.4 fL (80.0-94.0); Mean Platelet Volume 8.5 fL (7.4-10.4); Platelet Count 350 10^3/uL (130-400); Red Cell Dist. Width 13.2 % (11.5-14.5); White Blood Cell Count 25.4 10^3/uL (4.8-10.8)
[2024-03-28 04:35] LABS: Lactic Acid 0.9 mmol/L (0.7-2.0)
[2024-03-28 04:40] LABS: Vancomycin Random 11.1 ug/ml
[2024-03-28 04:52] LABS: Blood Urea Nitrogen 22 mg/dl (9-20); Calcium 7.5 mg/dl (8.4-10.2); Carbon Dioxide 22 mmol/L (22-30); Chloride 102 mmol/L (98-107); Estimated Creatinine Clearance 88 ml/min; Glucose 139 mg/dl (70-99); Potassium 3.9 mmol/L (3.5-5.1); Sodium 129 mmol/L (135-145); eGFR > 60.00
[2024-03-28 06:50] LABS: Absolute Neutrophils -Man Diff 23.3 10^3/uL (1.4-6.5); Band Neutrophils 11 % (0-3); Eosinophils 1 % (0-6); Lymphocytes 3 % (20-51); Monocytes 4 % (2-9); Platelets Checked Yes; Segmented Neutrophils 81 % (42-75)
[2024-03-28 06:51] LABS: Hypochromasia 1+; Normal RBC Morphology No; Total Cells Counted 100
[2024-03-28 06:52] LABS: Ovalocytes Occasional; Target Cells Occasional; Toxic Granulation 1+
[2024-03-28 07:41] LABS: Glucose - Point of Care 142 mg/dl (70-99)
[2024-03-28] MEDS: NOVOLOG FLEXPEN-LOW RESISTANCE SC (07:51)
--- NOTE | 2024-03-28 08:04 | CONSULT.CT ---
Consultation
-
Date/Time Consultation Requested: 03/28 800
Date/Time Consultation Performed: 03/28 800
Requesting Provider: Marybel Taylor
Performing Provider: Ceasar DUNN for Carolynn BEATTY
Reason for Consultation: recent lung resection
Patient History
Physicians
Family Physician: Rajni Gomez
History of Present Illness
68-year-old male with past medical history of diabetes type 2, hyperlipidemia, HTN, prostate cancer s/p surgical resection and hormonal therapy, possible malignancy of the right upper lobe s/p right middle lobe wedge resection with Dr. Pradhan on
03/16/24 presented to on 03/27 with fever reported by his . He also reports observing 400 cc of brown fluid in his bag that was connected to his chest tube. He was discharged on 03/21 with a right pleural chest tube connected to a Heimlich valve
and drainage bag. Upon admission to the ER he was noted to have a white count in the 30s and a lactate of 4 along with bands. He was started on vancomycin and Zosyn and given 3 L of normal saline. He was then admitted to IMU for further
observation. CT surgery was consulted for chest tube management.
Past Medical History
Right upper lobe lobectomy and wedge resection of right middle lobe on 03/16/2024 for spiculated right upper lung mass
Prostate cancer on chronic prednisone
IDDM
Interstitial lung disease/ Emphysema
Hypertension
Obstructive sleep apnea intolerant to CPAP
Hyperlipidemia
Past Surgical History
Past Surgical History: Other
Right upper lobe lobectomy and wedge resection of right middle lobe on 03/16/2024 for spiculated right upper lung mass
prostate surgery
Family History
Mother: N/A
Father: N/A
Social History
Alcohol: None
Drug: None
Tobacco: Former Smoker
Personal:
Living: With Spouse
Allergies
Allergy/AdvReac Type Severity Reaction Status Date / Time
No Known Allergies Allergy Verified 03/07/24 11:39
Home Medications
�Medication �Instructions �Recorded �Confirmed �Type
sitagliptin phos 100 mg-metformin 1 ea PO DAILY Diabetes 03/04/16 03/27/24 History
ER 1,000 mg tablet,extend rel 24h
mp (Janumet XR)
fenofibrate nanocrystallized 145 145 mg PO DAILY #1 tab 04/18/16 03/27/24 Rx
mg tablet
atorvastatin 10 mg tablet 10 mg PO DAILY High Cholesterol 04/03/17 03/27/24 History
calcium-vitamin D3-vitamin K 500 1 ea PO DAILY Supplement 09/08/21 03/27/24 History
mg-1,000 unit-40 mcg chewable
tablet
insulin glargine 100 unit/mL (3 22 units SC HS Diabetes 09/08/21 03/27/24 History
mL) subcutaneous pen (Lantus
Solostar U-100 Insulin)
prednisone 5 mg tablet 5 mg PO DAILY Anti-Inflammatory 09/08/21 03/27/24 History
insulin lispro 100 unit/mL 10 unit SC AC Diabetes 02/11/24 03/27/24 History
subcutaneous pen (Humalog KwikPen
(U-100) Insulin)
lisinopril 10 mg tablet 10 mg PO DAILY Blood Pressure 02/11/24 03/27/24 History
oxcarbazepine 300 mg tablet 300 mg PO DAILY Neurological 02/11/24 03/27/24 History
Condition
hydrochlorothiazide 25 mg tablet 25 mg PO DAILY Blood Pressure 02/15/24 03/27/24 History
cyclobenzaprine 10 mg tablet 5 mg (1/2 x 10 mg) PO Q8HPRN PRN 03/21/24 03/27/24 Rx
muscle spasm #20 tabs
gabapentin 300 mg capsule 300 mg PO TID nerve pain #30 caps 03/21/24 03/27/24 Rx
metoprolol tartrate 25 mg tablet 25 mg PO BID hypertension #60 tabs 03/21/24 03/27/24 Rx
oxycodone 10 mg tablet 10 mg PO Q6HPRN PRN severe pain 03/21/24 03/27/24 Rx
#30 tabs
abiraterone 500 mg tablet (Zytiga) 1,000 mg PO HS 03/27/24 03/27/24 History
Review of Systems
-
History Source: Patient
General: Reports Fever, Fatigue and Night Sweats
HEENT: Reports No Symptoms
Respiratory: Reports SOB
Cardiac: Reports No Symptoms
Abdomen/GI: Reports No Symptoms
: Reports No Symptoms
Musculoskeletal: Reports No Symptoms
Skin: Reports No Symptoms
Neurological: Reports No Symptoms
Vascular: Reports No Symptoms
Physical Exam
Vital Signs
Temp 98.6 F 03/28/24 03:25
Temp route: Oral 03/28/24 03:25
Pulse 89 03/28/24 06:00
Rhythm: Normal sinus rhythm 03/27/24 22:29
Resp Rate 0 03/28/24 06:00
Blood pressure 120/64 03/28/24 06:00
Blood pressure extremity used: Left upper arm 03/27/24 16:08
Position: Sitting 03/27/24 16:08
MAP (cuff-Heena Monitor) 79 03/28/24 06:00
SaO2 97 03/28/24 06:00
Oxygen Mode of Delivery Room air 03/27/24 23:04
Acceptable pain level during hospitalization? 0 03/27/24 16:08
Can the patient verbally communicate their pain? Yes 03/28/24 01:15
Pain scale rating: Asleep 03/28/24 01:15
Actual Weight 110.949 kg 03/27/24 21:46
Body Mass Index (BMI) 30.6 03/27/24 21:46
Labs
03/28/24 04:11
03/28/24 04:11
Exam
General: Well Developed, Well Nourished and No Apparent Distress
HEENT: Normocephalic and Moist Mucous Membranes
Respiratory: Clear, Crackles and Other (SQ air present along CT site and back)
Cardiac: S1/S2
GI: Soft and Non Tender
Rectal: Deferred by Provider
Skin: Warm and Dry
Neuro: AO x 3
Extremities: Lower Level Edema
Lymph: Lymphadenopathy
Psych: Calm
Assessment / Plan
-
68-year-old male with past medical history listed above presented to [facility] emergency room with a fever, elevated lactate and WBC. He was started on antibiotics and admitted for septic workup. CT surgery was consulted for chest tube management.
#Robotic assisted thoracic surgery, right upper lobectomy, radical lymph node dissection, diagnostic and therapeutic wedge resection of right middle lobe on 03/16
#Pleural effusion
#Subcutaneous emphysema
- Removed Heimlich valve and attached CT to pleura-vac with -20mmHG of suction
- Sample sent to the lab
- Monitor for increased drainage; possible removal later today
- Abd binder applied for SQ air compression; DO NOT REMOVE
- Dressing was changed and cleaned thoroughly with CHG
- Monitor temperature curve and WBC trend
- continue gabapentin and Flexeril, and oxy PRN for pain
- appreciate ID recs
#Hyponatremia
- avoid additional fluids
- would consider IV lasix
- trend daily
#Elevated lactate (resolved)
- upon admission 4.0, now 0.9
--- NOTE | 2024-03-28 08:33 | PHA.VAN.FU ---
Vancomycin Assessment / Plan
- Assessment
Renal Function: SCR Decreasing
WBC's are: Trending Down
Concomitant Antimicrobials: piperacillin/tazobactam
- Assessment - Therapeutic Drug Monitoring
Random Level: 11.1 - drawn ~10H after previous dose of 2g
- Dosing Plan
Dosing by Level: Re-dose today (Vanc 1000mg x2 - now and at 1800)
Renal function improving but not back to baseline - trial of BID dosing today
- Monitoring Plan
Random Level: 03/29 06
- Follow Up
Pharmacy will continue to follow.
Vancomycin Follow UP
- -
Patient Age: 68
Patient Sex: Male
Vancomycin Day #: 2
Indication: Other
Requesting Provider: Dr No
Pertinent Antimicrobial Allergies:
no known allergies
Height / Weight:
Height 6 ft 3 in
Actual Weight 110.949 kg
Pertinent Past Medical History: BMI ~31, DM2, prostate cancer, ILD, lobectomy and wedge resection
- Vital Signs / Lab Results
Temp Pulse Resp BP Pulse Ox
99.0 F 89 0 120/64 97
03/28/24 07:32 03/28/24 06:00 03/28/24 06:00 03/28/24 06:00 03/28/24 06:00
Lab Results - Hematology
03/27/24 03/28/24
16:46 04:11
WBC 32.9 H 25.4 H
Band Neutrophils 11 H
Lab Results - Chemistry
03/27/24 03/28/24
16:46 04:11
BUN 25 H 22 H
Creatinine 1.7 H 1.1
Estimated Creat Clear 57 88
Albumin 3.1 L
03/27/24 03/27/24 03/28/24
16:46 20:20 04:11
Lactic Acid 4.0 H* 1.0 0.9
Microbiology Results
03/27/24 16:46 Influenza Types A & B (JINNY) - Final
Nasal Swab Negative for Influenza A & B, NAAT
Negative results must be combined with clinical observations
and patient history.
Nucleic Acid Amplification test (NAAT)performed on the
[employer] platform.
Therapeutic Drug Monitoring
Random Vancomycin 11.1 ug/ml 03/28/24 04:11
[2024-03-28] MEDS: NSS 1000 IV ×2 (08:50→20:34)
[2024-03-28] MEDS: HEPARIN 5000 UNITS SC ×2 (08:50→20:35)
[2024-03-28] MEDS: LIPITOR 10 MG PO (08:51)
[2024-03-28] MEDS: TRILEPTAL 300 MG PO (08:51)
[2024-03-28] MEDS: VANCOCIN 200 IV ×2 (08:51→19:18)
[2024-03-28] MEDS: NOVOLOG FLEXPEN 5 UNITS SC ×3 (08:51→18:19)
[2024-03-28] MEDS: NEURONTIN 300 MG PO ×3 (08:51→22:19)
[2024-03-28] MEDS: DELTASONE 5 MG PO (08:51)
--- NOTE | 2024-03-28 09:41 | CON.ID ---
Documented by User: Tammy Grewal MD, Resident 03/28/24 10:27
Consultation
-
Date/Time Consultation Requested: 03/27/2024, 17:57
Date/Time Consultation Performed: 03/28/2024, 9:20
Requesting Provider: Dr. Claudia No
Performing Provider: Dr. Rodney Cisneros
Chief Complaint / Past History
Chief Complaint
Fever
History of Present Illness
Ronnie Miner is a 68-year-old old man being evaluated at the request of Dr. No in regards to sepsis. History is obtained from chart review, along with patient interview, and review of old records contained in the hospital EMR system.
Mr. Miner has a past medical history of recent robotic assisted right upper lobe lobectomy/wedge resection of the right middle lobe and radical lymph node dissection ( 03/16/2024) for spiculated right upper lung mass, prostate cancer on chronic
immunosuppression with prednisone, type 2 diabetes�insulin-dependent, interstitial lung disease/cystic fibrosis (diagnosed in 2022), hypertension, obstructive sleep apnea�not on CPAP, hyperlipidemia. Patient presented to the on 03/27/2024 with
fever. He was discharged on 03/21/24 with a right pleural chest tube connected to a Heimlich valve and drainage bag. Patient reports being asymptomatic from the time of discharge until 03/26/2024, no cough, chest pain, fever/chills, bladder/bowel
disturbances. Patient states that he used to empty around 75- 100 cc straw-colored fluid from his chest tube drain bag until then. On 03/27/2024 he he had to empty 400 cc, 250 cc of brown fluid . He also developed fever/chills and felt very weak
on the day of admission. In the ER he was noted to have white count at 32.9, lactate at 4 and was hypotensive. He was started on IV fluids, vancomycin/Zosyn and admitted to IMU for further observation.
Past History
Past Medical History: HTN, Hypercholesterolemia, IDDM and Other (Cystic fibrosis diagnosed in 2022, obstructive sleep apnea intolerant to CPAP)
Past Surgical History: Other (Right upper lobe lobectomy and wedge resection of right middle lobe on 03/16/2024 for spiculated right upper lung mass, Prostate cancer s/p prostatectomy, radiation, hormone suppression with Zytiga)
Allergy History:
No Known Allergies Allergy (Verified 03/07/24 11:39)
Medications Reviewed: Yes
Current Antibiotics:
Vancomycin, Zosyn
Social History
Tobacco: Former Smoker (40 pack years, quit 2 and half years ago)
Alcohol: Occasional
Drug: None
Personal:
Living: With Family
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
Family History
Family History: Not Pertinent
Review of Systems
Review of Systems
As per HPI
Vital Signs
Temp Pulse Resp BP Pulse Ox
99.0 F 89 0 120/64 98
03/28/24 07:32 03/28/24 06:00 03/28/24 06:00 03/28/24 06:00 03/28/24 08:04
Physical Exam
Physical Exam
Constitutional: No Acute Distress
Head: Normocephalic
Cardiovascular: S1/S2
Pulmonary: Other (Crackles, chest tube drain connected to Pleur-vac with no air leak, 10 cc , straw-colored fluid)
Gastrointestinal: Soft, Non Tender and Other (Has abdominal binder)
Skin: Warm and Dry
Lab / Diagnostic Study Results
03/28/24 04:11
03/28/24 04:11
Abs Immat Gran (auto) 0.4 10^3/uL (0-0.05) H 03/27/24 16:46
Absolute Neuts (auto) 30.9 10^3/uL (1.4-6.5) H 03/27/24 16:46
Absolute Lymphs (auto) 0.7 10^3/uL (1.2-3.4) L 03/27/24 16:46
Absolute Monos (auto) 0.6 10^3/uL (0.1-0.6) 03/27/24 16:46
Absolute Basos (auto) 0.1 10^3/uL (0-0.2) 03/27/24 16:46
Total Counted 100 03/28/24 04:11
Immature Gran % 1.2 % (0-0.5) H 03/27/24 16:46
Neutrophils % 93.8 % (42.2-75.2) H 03/27/24 16:46
Lymphocytes % 2.1 % (20.5-51.1) L 03/27/24 16:46
Monocytes % 1.8 % (1.7-9.3) 03/27/24 16:46
Eosinophils % 0.8 % (0-6) 03/27/24 16:46
Basophils % 0.3 % (0-2) 03/27/24 16:46
Abs Neuts (Manual) 23.3 10^3/uL (1.4-6.5) H 03/28/24 04:11
Segmented Neutrophils 81 % (42-75) H 03/28/24 04:11
Band Neutrophils 11 % (0-3) H 03/28/24 04:11
Lymphocytes (Manual) 3 % (20-51) L 03/28/24 04:11
Eosinophils (Manual) 1 % (0-6) 03/28/24 04:11
Lactic Acid 0.9 mmol/L (0.7-2.0) 03/28/24 04:11
Microbiology Results
Micro:
03/28/24 08:21 Body Fluid Culture - Pending
Chest Fluid Gram Stain - Pending
03/27/24 20:20 MRSA Screen - Pending
Nose
03/27/24 16:46 Influenza Types A & B (JINNY) - Final
Nasal Swab Negative for Influenza A & B, NAAT
Negative results must be combined with clinical observations
and patient history.
Nucleic Acid Amplification test (NAAT)performed on the
[employer] platform.
03/27/24 16:46 Blood Culture - Pending
Blood/Venous
Assessment / Plan
Impression/plan
Sepsis
S/p right upper lobe lobectomy/wedge resection of right middle lobe
Stable trace right apical pneumothorax
KEISHA
Immunocompromise state on chronic prednisone for prostate cancer
Other conditions
Hypertension
Hyperlipidemia
Insulin-dependent diabetes mellitus
Cystic fibrosis
Obstructive sleep apnea intolerant to CPAP
Recommendations
#Sepsis��leukocytosis with bandemia and lactic acidosis -4, hypotension on admission.
Leukocytosis improving, lactate level improved.
Patient is afebrile and hemodynamically stable.
Blood culture pending
Chest fluid culture pending
Started on vancomycin, Zosyn
Continue antibiotics, will de-escalate awaiting blood cultures
Monitor fever curve, WBC count

Documented by User: Rodney Cisneros, 03/28/24 13:30
Physical Exam
Microbiology Results
Imaging:
03/27/2024 CXR (2 view): Stable right apical chest tube noted. There is increased right lateral chest wall and right lower neck subcutaneous emphysema seen. No overt pulmonary vascular congestion noted. Please see full dictation for additional
detail. Film personally viewed.
--- NOTE | 2024-03-28 10:29 | CON.PUL ---
Consultation
Consultation Request
Date/Time Consultation Requested: 03/28/2024
Date/Time Consultation Performed: 03/28/2024
Requesting Provider: Dr. No
Performing Provider: Dr. Juan Manuel Falk
Reason for Consultation: Pleural effusion
Medical History
-
History of Present Illness:
68-year-old man with past medical history of recent right upper lobe lobectomy and wedge resection of right middle lobe on 03/16/2024 for a spiculated right upper lobe lung mass, history of prostate cancer on chronic prednisone, type 2 diabetes,
emphysema, hypertension, obstructive sleep apnea intolerant to CPAP, hyperlipidemia who came to the hospital after having fevers.
He was discharged with a Heimlich valve after his hospital stay for lobectomy.
Currently denies any phlegm production, coughing or chest pain. Denies nausea, vomiting or diarrhea. Denies any urinary symptoms.
He was noted to have a white cell count of 30,000. Lactic acid was elevated.
He was admitted for evaluation of infection and started on antibiotics.
Past Medical History
Past Medical History: Other (See assessment and plan section)
Social History
Tobacco: Former Smoker (98-krkc-yxar history quit in 2021.)
Alcohol: Occasional
Drug: None
Personal:
Living: Alone
Employment: Retired (IT)
Occupational Exposures: Denies
Environmental Exposures: Denies
Family History
Family History: Other (Father age 80, mother age 77 history of bladder cancer, uterine cancer, breast cancer in the family along with ovarian cancer. Brother, sister and grandmother with cystic fibrosis)
Allergies / Home Medications
Allergies
Allergy/AdvReac Type Severity Reaction Status Date / Time
No Known Allergies Allergy Verified 03/07/24 11:39
Home Medications
�Medication �Instructions �Recorded �Confirmed �Last Taken �Type
sitagliptin phos 100 mg-metformin 1 ea PO DAILY Diabetes 03/04/16 03/27/24 03/15/24 History
ER 1,000 mg tablet,extend rel 24h
mp (Janumet XR)
atorvastatin 10 mg tablet 10 mg PO DAILY High Cholesterol 04/03/17 03/27/24 02/14/24 History
calcium-vitamin D3-vitamin K 500 1 ea PO DAILY Supplement 09/08/21 03/27/24 02/14/24 History
mg-1,000 unit-40 mcg chewable
tablet
insulin glargine 100 unit/mL (3 22 units SC HS Diabetes 09/08/21 03/27/24 03/15/24 History
mL) subcutaneous pen (Lantus
Solostar U-100 Insulin)
prednisone 5 mg tablet 5 mg PO DAILY Anti-Inflammatory 09/08/21 03/27/24 03/15/24 History
insulin lispro 100 unit/mL 10 unit SC AC Diabetes 02/11/24 03/27/24 03/15/24 History
subcutaneous pen (Humalog KwikPen
(U-100) Insulin)
lisinopril 10 mg tablet 10 mg PO DAILY Blood Pressure 02/11/24 03/27/24 03/15/24 History
oxcarbazepine 300 mg tablet 300 mg PO DAILY Neurological 02/11/24 03/27/24 03/15/24 History
Condition
hydrochlorothiazide 25 mg tablet 25 mg PO DAILY Blood Pressure 02/15/24 03/27/24 03/15/24 History
cyclobenzaprine 10 mg tablet 5 mg (1/2 x 10 mg) PO Q8HPRN PRN 03/21/24 03/27/24 Unknown Rx
muscle spasm #20 tabs
gabapentin 300 mg capsule 300 mg PO TID nerve pain #30 caps 03/21/24 03/27/24 Unknown Rx
metoprolol tartrate 25 mg tablet 25 mg PO BID hypertension #60 tabs 03/21/24 03/27/24 Unknown Rx
oxycodone 10 mg tablet 10 mg PO Q6HPRN PRN severe pain 03/21/24 03/27/24 Unknown Rx
#30 tabs
abiraterone 500 mg tablet (Zytiga) 1,000 mg PO HS Cancer 03/27/24 03/27/24 Unknown History
fenofibrate nanocrystallized 145 145 mg PO DAILY High Cholesterol 03/28/24 03/27/24 Unknown History
mg tablet
Review of Systems
Vitals / Labs / Diagnostic Testing
Vital Signs
Temp Pulse Resp BP Pulse Ox
99.0 F 96 25 118/58 96
03/28/24 07:32 03/28/24 10:00 03/28/24 10:00 03/28/24 10:00 03/28/24 10:00
Lab Data
03/28/24 04:11
03/28/24 04:11
Microbiology
03/27/24 16:46 Nasal Swab Influenza Types A & B (JINNY) - Final
Negative for Influenza A & B, NAAT
Negative results must be combined with clinical observations
and patient history.
Nucleic Acid Amplification test (NAAT)performed on the
[employer] NOW platform.
Diagnostic Testing:
Physical Exam
-
HEENT: Normocephalic
Cardiovascular: S1/S2
Respiratory: Clear, Non-Labored Respirations and Other (Chest tube in place. No air leak noted. Minimal amount of serous fluid.)
GI: Soft and Non Distended
Neurology: Awake, Alert, Oriented and AO x 3
Skin: Warm
General: Comfortable
Assessment
-
68-year-old man with history of prostate cancer, on low-dose prednisone, type 2 diabetes, recently underwent lobectomy for adenocarcinoma of the lung. Negative lymph nodes. Discharged from the hospital with a chest tube in place with a Heimlich
valve due to persistent air leak. Returns to the hospital complaining of fever found to have leukocytosis as well. We were consulted for evaluation and assistance in management
Fever/leukocytosis-sepsis.
Likely intrapleural source.
Patient discharged with a Heimlich valve-chest tube due to persistent air leak
Chest x-ray: Noted subcu air/pleural thickening. Possible small pleural effusion. Apical pneumothorax
-
S/p RATS, RULectomy, RML wedge resection 03/16/2024. 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 Negative lymph nodes. Negative margins.
Lymph node dissection
1.4 cm right upper lobe nodule, PET avid
Atypical cells on robotic bronchoscopy 02/15/2024
Station 7 lymph node sampling negative
Right middle lobe nodule with focal calcification
Conditions present prior to admission
Biapical emphysema
Mild interstitial changes
Preoperative FEV1 3.55/90%, TLC 6.4/81%, DLCO 26.98/86%
Hypertension/hyperlipidemia
Diabetes
Sleep apnea, intolerant to CPAP
History of prostate cancer, prostatectomy
89-zuba-spse history of smoking quit 2021
Family history of cystic fibrosis
Family history of cancer (colon, ovarian, breast)
Assessment and plan:
Possible intra pleural space infection.
Chest tube in place after discharge from the hospital with Heimlich valve on 03/21/2024.
-
Pleural VAC in place: No air leak noted even with cough . Minimal amount of serous fluid.
Chest x-ray this admission reviewed, right apical chest tube in place, only with minimal pneumothorax/pleural thickening with possible minimal pleural fluid. No active air leak noted on my exam.
Patient appears nontoxic, hemodynamically stable. Not requiring supplemental oxygen.
Pleural fluid sample was sent. Will wait for results.
Continue antibiotics per infectious disease. Wait for cultures to de-escalate.
Continue to monitor fever and white blood cell count.
CT surgery consulted and has seen the patient. Wait for cultures.
Defer chest tube management to CT surgery at this point.
-
Incentive spirometry as able
Increase activity as able
-
Status post right upper lobe lobectomy. Consistent with adenocarcinoma. Clean margins and negative lymph nodes.
Patient aware.
-
DVT prophylaxis
-
Will follow
[2024-03-28 12:22] LABS: Glucose - Point of Care 156 mg/dl (70-99)
[2024-03-28] MEDS: NOVOLOG FLEXPEN-LOW RESISTANCE 1 UNITS SC ×2 (12:33→18:19)
--- NOTE | 2024-03-28 14:43 | PTCARENOTE ---
Addendum entered by Salome Kelly 03/28/24 15:58:
Chest tube removed by TIARA Mcdonough. Dressing C/D/I.
Original Note:
Pt presents as assessed. Aox3, drowsy. Sleeping intermittently. Chest tube attached to canister and placed to -20 wall suction and abdominal binder applied by TIARA Mcdonough. CT with yellow drainage. IVF infusing as ordered. Care as documented. Able to
make needs known; call ramirez within reach.
--- NOTE | 2024-03-28 15:14 | CM ---
Patient with Hx recent right upper lobe lobectomy and wedge resection of right middle lobe on 03/16, chest tube with Heimlich valve with Dx sepsis, KEISHA. Room air. Chest tube. Receiving IV Abx.
Met with patient who resides with his in a 2 story house with 1 JES[address] MANUEL.
The patient has been independent in ADLs and ambulation since his recent d/c home.
His was assisting him with his wound care.
He had [address] Transitional RN.
The patient has no DME.
Prior [facility].
PCP - Rajni Gomez
Pharmacy - [facility]
Offered VN and patient unsure- he wants to discuss with MD.
CM continuing to follow for d/c needs.
Plan home.
--- NOTE | 2024-03-28 15:31 | W.PN.UPDATE ---
Update Note
Progress Note Update
CT output since this AM was 90ml. No air leak with cough and deep breathes and pleural fluid showed WBC but no organisms. Per Dr. Pradhan, CT was removed without issue and suture was tied down. Repeat CXR in the AM. Maintain Abd binder. Moderate trunk
edema. Will order 40mg lasix now.
[2024-03-28] MEDS: LASIX 40 MG PO (15:54)
[2024-03-28] MEDS: KCL 20 MEQ PO (15:54)
--- NOTE | 2024-03-28 16:24 | W.PN.HOSP.TC ---
Today's Communication/Plan
-
remove chest tube
abx
f/u cultures
ivf
Assessment / Plan
Assessment / Plan
HPI: 68-year-old male with PMH recent right upper lobe lobectomy and wedge resection of right middle lobe on 03/16/2024 for spiculated right upper lung mass, Prostate cancer on chronic prednisone, Type 2 diabetes, Interstitial lung disease/ Emphysema,
Hypertension, Obstructive sleep apnea intolerant to CPAP, Hyperlipidemia; p/w fever noticed by his , which started on the DOA. He still has his chest tube from recent surgery.
# Severe Sepsis, unclear source
# Immune compromised state on chronic prednisone for Prostate cancer
-Possible intra pleural space infection.
-His CXR is unrevealing: noted suspect stable trace right apical pneumothorax.
-cont maintenance IVF
-Follow blood culture
-Check MRSA screen
-cont vanc/zosyn
-Pulm CS
-ID CS
-f/u fluid cultures from Chest tube
# KEISHA
SCr 1.7 from baseline 0.6
cont IVF
Hold POWER AND RECOVERY SUPERVISOR ACEI with KEISHA
Trend SCr
Improving
# recent right upper lobe lobectomy and wedge resection of right middle lobe due to spiculated right upper lung mass on 03/16/[address] - 90cc output since am
-cxr in am
Pulm CS
#hyponatremia
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
-ctm
Other medical conditions:
# Prostate cancer on chronic prednisone
# IDDM
Cont lower doses of POWER AND RECOVERY SUPERVISOR Lantus and Lispro: Lantus at 15 units HS (22 units POWER AND RECOVERY SUPERVISOR), and Aspart at 5 units AC (10 units POWER AND RECOVERY SUPERVISOR)
cover with ISS
Carb control diet
# Interstitial lung disease
# Emphysema
# Hypertension
Hold POWER AND RECOVERY SUPERVISOR ACEI with KEISHA
Hold POWER AND RECOVERY SUPERVISOR BP meds with current stable BP and severe sepsis
# Obstructive sleep apnea intolerant to CPAP
# Hyperlipidemia
DVT ppx: HSQ
FC
Total time spent on today's encounter was 50 minutes which included time spent in counseling the patient/family regarding diagnosis and treatment plan as listed above, goals of care, and symptom management. Case was discussed with nursing staff,
specialists, and care coordinators/case management. All labs and imaging personally reviewed by me. Remainder the time spent in detailed review of previous records, lab data, imaging, and other medical provider documentation.
Anticipated Discharge: > 48 hours
Subjective/Interval History
-
Date of Service: March 28, 2024
No acute events
Objective Data
-
Labs:
Laboratory Results
03/28/24
04:11
Sodium 129 L
Potassium 3.9
Chloride 102
Carbon Dioxide 22
BUN 22 H
Creatinine 1.1
Glucose 139 H
Calcium 7.5 L
Vital Signs:
Vital Signs
Temp Pulse Resp BP Pulse Ox
100.6 F H 96 25 118/58 98
03/28/24 11:06 03/28/24 10:00 03/28/24 10:00 03/28/24 10:00 03/28/24 10:21
I&O
03/27/24 03/28/24 03/29/24
06:59 06:59 06:59
Intake Total 1810 / 1810
Output Total 490 / 490 450 / 450
Balance 1320 / 1320 -450 / -450
Review of Systems
-
History Source: Patient
All other systems: Not reviewed unless documented
Data Reviewed
-
Diagnostic Radiology: Image personally visualized and interpreted and Report Reviewed by me
Labs: Labs Reviewed by me
[2024-03-28 17:50] LABS: Glucose - Point of Care 161 mg/dl (70-99)
[2024-03-28 19:54] LABS: Hepatitis C Antibody Negative (Negative)
--- NOTE | 2024-03-28 20:08 | PTCARENOTE ---
Received pt from dayshift RN. Pt is AAOx3, drowsy. NSR on the monitor. On RA O2 sat 96%, lungs diminished. Right chest tube removed during , dressing c/d/i. Abd binder in place. NS infusing @ 100 ml/hr. Hygiene provided. Pt is laying
comfortable in bed with call ramirez in reach.
[2024-03-28 22:01] LABS: Glucose - Point of Care 204 mg/dl (70-99)
[2024-03-28] MEDS: LANTUS 0.15 UNITS SC (22:19)
[2024-03-28] MEDS: NSS IV (23:13)
[2024-03-29] VITALS (13 sets, daily range): BP systolic 115–154; BP diastolic 48–85; BMI 30.7
[2024-03-29] MEDS: ZOSYN 50 IV ×5 (00:17→23:17)
[2024-03-29 06:07] LABS: Hemoglobin 9.9 g/dL (13.0-18.0); Mean Corp Hgb Conc. 35.4 g/dL (33.0-37.0); Mean Corpuscular Hgb 27.8 pg (27.0-31.0); Mean Corpuscular Volume 78.7 fL (80.0-94.0); Mean Platelet Volume 8.8 fL (7.4-10.4); Platelet Count 367 10^3/uL (130-400); Red Blood Cell Count 3.56 10^6/uL (4.70-6.10); Red Cell Dist. Width 13.3 % (11.5-14.5); White Blood Cell Count 17.7 10^3/uL (4.8-10.8)
[2024-03-29 06:19] LABS: Vancomycin Random 9.6 ug/ml
[2024-03-29 07:04] LABS: ALT (SGPT) 22 U/L (0-50); AST (SGOT) 27 U/L (17-59); Albumin 2.5 g/dl (3.5-5.0); Alkaline Phosphatase 129 U/L (38-126); Blood Urea Nitrogen 16 mg/dl (9-20); Calcium 7.8 mg/dl (8.4-10.2); Carbon Dioxide 18 mmol/L (22-30); Chloride 105 mmol/L (98-107); Estimated Creatinine Clearance > 125 ml/min; Glucose 111 mg/dl (70-99); Potassium 3.8 mmol/L (3.5-5.1); Sodium 133 mmol/L (135-145); Total Bilirubin 0.5 mg/dl (0.2-1.3); Total Protein 5.1 g/dl (6.3-8.2); eGFR > 60.00
[2024-03-29 07:41] LABS: Glucose - Point of Care 134 mg/dl (70-99)
--- NOTE | 2024-03-29 08:02 | W.PN.UPDATE ---
Addendum entered and electronically signed by Kelton Pradhan MD 03/30/24 10:31:
Effusion looks worse and possibly loculated. Needs CT and possible IR drainage.
Leukocytosis improving with aBx. cultures can back positive for Staph Aureus on pleural fluid - will defer to ID for termite control representative abx.
Original Note:
Update Note
Progress Note Update
Patient seen at bedside. No new issues or events overnight.
Afebrile, Tmax 99.1, WBC/leukocytosis improving 17.7 previously 25.4.
Morning CXR to my interpretation reveals no pneumothorax. Subcutaneous emphysema stable and slowly improving.
Plural fluid cultures moderate WBC, no organisms seen and blood cultures with no growth x 24hrs.
Incisions C/D/I, chest tube site secured with Ethibond stitch.
Pressure dressing and abdominal binder reapplied.
Check UA with reflex to culture
Diuresis with Lasix 40 IV BID, replace electrolytes appropriately
Daily weights
Cont. Abx per ID
Cont. care per primary team
CT surgery will follow appropriately
--- NOTE | 2024-03-29 08:10 | W.PN.PUL3 ---
Today's Communication / Plan
-
Continue antibiotics per infectious disease
Incentive spirometry, out of bed to chair, ambulate
Follow-up chest x-ray in 2 to 4 weeks or as indicated
Diuresis per CT surgery
Will likely require outpatient oncology evaluation
Follow-up with pulmonary, appointment 04/08 (Dileep)
Assessment
-
68-year-old man with history of prostate cancer, on low-dose prednisone, type 2 diabetes, recently underwent lobectomy for adenocarcinoma of the lung. Negative lymph nodes. Discharged from the hospital with a chest tube in place with a Heimlich
valve due to persistent air leak. Returns to the hospital complaining of fever found to have leukocytosis as well. We were consulted for evaluation and assistance in management
Fever/leukocytosis-sepsis.
Likely intrapleural source.
Patient discharged with a Heimlich valve-chest tube due to persistent air leak
Chest x-ray: Noted subcu air/pleural thickening. Possible small pleural effusion. Apical pneumothorax
-
S/p RATS, RULectomy, RML wedge resection 03/16/2024. 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 Negative lymph nodes. Negative margins.
Lymph node dissection
1.4 cm right upper lobe nodule, PET avid
Atypical cells on robotic bronchoscopy 02/15/2024
Station 7 lymph node sampling negative
Right middle lobe nodule with focal calcification
Conditions present prior to admission
Biapical emphysema
Mild interstitial changes
Preoperative FEV1 3.55/90%, TLC 6.4/81%, DLCO 26.98/86%
Hypertension/hyperlipidemia
Diabetes
Sleep apnea, intolerant to CPAP
History of prostate cancer, prostatectomy
16-bvxs-teex history of smoking quit 2021
Family history of cystic fibrosis
Family history of cancer (colon, ovarian, breast)
Assessment and plan:
Patient is feeling objectively and subjectively improved. Chest tube has been removed
Remains on vancomycin/Zosyn
Also on baseline prednisone 5 mg, outpatient regimen
Possible intra pleural space infection.
Patient appears to be nontoxic
Chest x-ray with right pleural effusion and right lung congestion
Gram stain on pleural fluid moderate white cells, no organisms
Blood culture negative to date
Moving forward
Continue antibiotics per infectious disease
Will defer transition to oral regimen and length of treatment to ID
Follow-up chest x-ray as indicated
Status post right upper lobe lobectomy. Consistent with adenocarcinoma. Clean margins and 1 positive lymph node, station 10.
Patient aware.
Would recommend oncology follow-up as outpatient
DVT prophylaxis: Presently on subcutaneous heparin every 12 hours
Ambulate
Disposition efforts
Subjective Data
-
Date of Service:
Date of Service: March 29, 2024
Subjective:
Chest tube has been removed. Patient is feeling well. Denies significant cough, chest pain, pleurisy, nausea, abdominal pain, lightheadedness. Has constipation
Objective Data
Data Reviewed
Vital Signs / I&O / Oxygen:
Vital Signs
Temp Pulse Resp BP Pulse Ox
98.5 F 83 16 136/69 96
03/29/24 07:27 03/29/24 07:27 03/29/24 07:27 03/29/24 07:27 03/29/24 07:27
Intake and Output
03/28/24 03/29/24 03/30/24
06:59 06:59 06:59
Intake Total 1810 / 1810 1260 / 1260
Output Total 490 / 490 1310 / 1310 475 / 475
Balance 1320 / 1320 -50 / -50 -475 / -475
SaO2 96
Physical Exam
General: Comfortable
HEENT: Normocephalic and Anicteric
Cardiovascular: S1-S2, Regular Rhythm, Murmur (n) and Rub (n)
Respiratory: Wheeze (n), Crackles (n), Rhonchi (n) and Other (sl decreased rt side)
GI: Soft, Non Distended and Non Tender
Neurology: Awake, Alert and No Motor Deficits
Skin: Cyanosis (n), Jaundice (n) and Rash (n)
Labs/Micro/Reports
Lab Data
03/29/24 05:17
03/29/24 05:17
Microbiology
03/27/24 16:46 Blood/Venous Blood Culture - Preliminary
No Growth in 24 hours- Final report to follow
03/28/24 08:21 Chest Fluid Gram Stain - Preliminary
03/27/24 16:46 Nasal Swab Influenza Types A & B (JINNY) - Final
Negative for Influenza A & B, NAAT
Negative results must be combined with clinical observations
and patient history.
Nucleic Acid Amplification test (NAAT)performed on the
[employer] platform.
--- NOTE | 2024-03-29 08:19 | PHA.VAN.FU ---
Vancomycin Assessment / Plan
- Assessment
Renal Function: SCR Decreasing
WBC's are: Trending Down
In the past 24 hrs, patient has been: Afebrile
Concomitant Antimicrobials: piperacillin/tazobactam
- Assessment - Therapeutic Drug Monitoring
Random Level: 9.6 - drawn ~10H after 2nd dose of 1000mg
- Dosing Plan
Adjust Regimen to: Vanc 1500mg Q12H
New Regimen Predicts: AUC (450), Peak (31), Trough (10)
Dosing Comments: give 1000mg now and start at 1800
- Monitoring Plan
No level(s) ordered at this time: consider levels in next few days
- Follow Up
Pharmacy will continue to follow.
Vancomycin Follow UP
- -
Patient Age: 68
Patient Sex: Male
Vancomycin Day #: 3
Indication: Other
Requesting Provider: Dr No / Amelia
Pertinent Antimicrobial Allergies:
no known allergies
Height / Weight:
Height 6 ft 3 in
Actual Weight 110.949 kg
Pertinent Past Medical History: BMI ~31, DM2, prostate cancer, ILD, lobectomy and wedge resection
- Vital Signs / Lab Results
Temp Pulse Resp BP Pulse Ox
98.5 F 83 16 136/69 96
03/29/24 07:27 03/29/24 07:27 03/29/24 07:27 03/29/24 07:27 03/29/24 07:27
Lab Results - Hematology
03/27/24 03/28/24 03/29/24
16:46 04:11 05:17
WBC 32.9 H 25.4 H 17.7 H
Band Neutrophils 11 H
Lab Results - Chemistry
03/27/24 03/28/24 03/29/24
16:46 04:11 05:17
BUN 25 H 22 H 16
Creatinine 1.7 H 1.1 0.7
Estimated Creat Clear 57 88 > 125
Albumin 3.1 L 2.5 L
03/27/24 03/27/24 03/28/24
16:46 20:20 04:11
Lactic Acid 4.0 H* 1.0 0.9
Microbiology Results
03/27/24 20:20 MRSA Screen - Final
Nose No Methicillin Resistant Staphylococcus aureus isolated.
03/27/24 16:46 Blood Culture - Preliminary
Blood/Venous No Growth in 24 hours- Final report to follow
03/28/24 08:21 Gram Stain - Preliminary
Chest Fluid
03/27/24 16:46 Influenza Types A & B (JINNY) - Final
Nasal Swab Negative for Influenza A & B, NAAT
Negative results must be combined with clinical observations
and patient history.
Nucleic Acid Amplification test (NAAT)performed on the
[employer] platform.
Therapeutic Drug Monitoring
Random Vancomycin 9.6 ug/ml 03/29/24 05:17
[2024-03-29] MEDS: NOVOLOG FLEXPEN-LOW RESISTANCE SC ×2 (08:49→17:30)
[2024-03-29] MEDS: NEURONTIN 300 MG PO ×3 (08:58→21:26)
[2024-03-29] MEDS: TRILEPTAL 300 MG PO (08:58)
[2024-03-29] MEDS: VANCOCIN 200 IV (08:58)
[2024-03-29] MEDS: HEPARIN 5000 UNITS SC ×2 (08:58→19:17)
[2024-03-29] MEDS: LASIX 40 MG IV ×2 (08:58→17:36)
[2024-03-29] MEDS: DELTASONE 5 MG PO (08:58)
[2024-03-29] MEDS: LIPITOR 10 MG PO (08:59)
[2024-03-29] MEDS: KCL 40 MEQ PO (09:01)
[2024-03-29] MEDS: NOVOLOG FLEXPEN 5 UNITS SC ×3 (09:03→17:33)
--- NOTE | 2024-03-29 09:31 | PN.CDI ---
CDI
- -
CDI:
Physician Documentation Request
Admit Date: 03/27/24 18:45
Dear Doctor Carolynn,
Patient admitted with sepsis.
ED Physician Documentation: 'His has been draining the tube every day but noticed that there has been increase in fluid. She noted that he seemed confused earlier today and she noted that he was febrile.'
03/28 Pulmonary consult: 'Fever/leukocytosis-sepsis. Likely intrapleural source. Patient discharged with a Heimlich valve-chest tube due to persistent air leak'
Please clarify the following:
Sepsis is a complication of the surgery
Sepsis is unexpected but is NOT a complication of the surgery
Sepsis is an expected occurrence and is not a complication of surgery
Sepsis is inherent to/unavoidable during the surgery and is not a complication
Other
Use of terms such as suspected, likely, concern for, or probable (associated with a specific diagnosis that is being evaluated, monitored, or treated as if it exists) are acceptable and can be coded in the inpatient setting, when documented at the
time of discharge.
Thank you,
Ely Duron RN, BSN
CDI Specialist
Available via [place] text
Please use your independent medical judgment in providing your response.
[2024-03-29 10:03] LABS: Urine Albumin Negative (Neg - Trace); Urine Bilirubin Negative (Negative); Urine Character Clear (Clear); Urine Color Yellow; Urine Glucose Negative (Negative); Urine Ketone Negative (Negative); Urine Leukocyte Negative (Negative); Urine Nitrite Negative (Negative); Urine Occult Blood Negative (Negative); Urine Urobilinogen Negative (Neg - 1+)
[2024-03-29 12:25] LABS: Glucose - Point of Care 187 mg/dl (70-99)
[2024-03-29] MEDS: NOVOLOG FLEXPEN-LOW RESISTANCE 1 UNITS SC (12:48)
--- NOTE | 2024-03-29 14:57 | W.PN.HOSP.TC ---
Today's Communication/Plan
-
abx
f/u cultures
f/u ID, CTS, Pulm recs
IV lasix
Assessment / Plan
Assessment / Plan
HPI: 68-year-old male with PMH recent right upper lobe lobectomy and wedge resection of right middle lobe on 03/16/2024 for spiculated right upper lung mass, Prostate cancer on chronic prednisone, Type 2 diabetes, Interstitial lung disease/ Emphysema,
Hypertension, Obstructive sleep apnea intolerant to CPAP, Hyperlipidemia; p/w fever noticed by his , which started on the DOA. He still has his chest tube from recent surgery.
# Severe Sepsis, unclear source
# Immune compromised state on chronic prednisone for Prostate cancer
-Possible intra pleural space infection.
-His CXR is unrevealing: noted suspect stable trace right apical pneumothorax. Subcutaneous emphysema stable and slowly improving
-Follow blood culture/pleural fluid: Staph aureus
-MRSA screen - negative
-cont vanc/zosyn
-Pulm CS
-ID CS
-OOB to chair
-Incentive Jeremy
-CXR in 2-4 weeks
# KEISHA
SCr 1.7 from baseline 0.6
cont IVF
Hold RAILROAD SURVEYOR ACEI with KEISHA
Trend SCr
Improving
# recent right upper lobe lobectomy and wedge resection of right middle lobe due to spiculated right upper lung mass on 03/16/[address] - 90cc output since am
-cxr in am improving subcut emphysema stable and slowly improving
-IV diuresis as per CTS
Pulm CS
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
-Outpatient Onc evaluation
#hyponatremia
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
-ctm
Other medical conditions:
# Prostate cancer on chronic prednisone
# IDDM
Cont lower doses of RAILROAD SURVEYOR Lantus and Lispro: Lantus at 15 units HS (22 units RAILROAD SURVEYOR), and Aspart at 5 units AC (10 units RAILROAD SURVEYOR)
cover with ISS
Carb control diet
# Interstitial lung disease
# Emphysema
# Hypertension
Hold RAILROAD SURVEYOR ACEI with KEISHA
Hold RAILROAD SURVEYOR BP meds with current stable BP and severe sepsis
# Obstructive sleep apnea intolerant to CPAP
# Hyperlipidemia
DVT ppx: HSQ
FC
Anticipated Discharge: Within 24 hours
Subjective/Interval History
-
Date of Service: March 29, 2024
Feels better today, hemodynamically stable
Objective Data
-
Labs:
Laboratory Results
03/29/24
05:17
WBC 17.7 H
Hgb 9.9 L
Hct 28.0 L
Plt Count 367
Sodium 133 L
Potassium 3.8
Chloride 105
Carbon Dioxide 18 L
BUN 16
Creatinine 0.7
Glucose 111 H
Calcium 7.8 L
Total Bilirubin 0.5
AST 27
ALT 22
Alkaline Phosphatase 129 H
Vital Signs:
Vital Signs
Temp Pulse Resp BP Pulse Ox
98.4 F 87 24 131/65 96
03/29/24 12:11 03/29/24 14:00 03/29/24 14:00 03/29/24 14:00 03/29/24 14:00
I&O
03/28/24 03/29/24 03/30/24
06:59 06:59 06:59
Intake Total 1810 / 1810 1260 / 1260
Output Total 490 / 490 1310 / 1310 925 / 925
Balance 1320 / 1320 -50 / -50 -925 / -925
Review of Systems
-
History Source: Patient
All other systems: Not reviewed unless documented
Data Reviewed
-
Diagnostic Radiology: Image personally visualized and interpreted and Report Reviewed by me
Labs: Labs Reviewed by me
--- NOTE | 2024-03-29 15:06 | W.PN.ID1 ---
Date of Service
Date of Service: March 29, 2024
Today's Communication
Continue antibiotics.
Assessment / Plan
Clinical Sepsis
- leukocytosis with bandemia and lactic acidosis (4.0), hypotension on admission.
S/p right upper lobe lobectomy/wedge resection of right middle lobe
Stable trace right apical pneumothorax
Right empyema secondary to Staphylococcus aureus
KEISHA
Leukocytosis
Immunocompromized state; on chronic prednisone with zytiga for prostate cancer
Recommendations
Leukocytosis improving, lactate level improved.
Blood culture pending
Chest fluid culture with Staphylococcus aureus. Pleural fluid cell count and diff ordered but not done.
Continue vancomycin and Zosyn for today. Will de-escalate as further data returned.
Monitor fever curve, WBC count
Chief Complaint
-: Other (Pleural effusion)
Subjective / Review of Systems
Patient seen and examined. Chest tube removed. Overall feels well, breathing comfortable.
Review of Systems: No Fever and No Chills
Vital Signs / Physical Exam
Vital Signs
Vital Signs
Temp Pulse Resp BP Pulse Ox
98.4 F 87 24 131/65 96
03/29/24 12:11 03/29/24 14:00 03/29/24 14:00 03/29/24 14:00 03/29/24 14:00
Physical Exam
Constitutional: No Acute Distress, Comfortable and Non-toxic
Eyes: Sclera Anicteric
Cardiovascular: S1/S2; Negative S3/S4
Pulmonary: Coarse and Non Labored; Negative Wheezes or Rales
Gastrointestinal: Soft, Non Tender and Non Distended
Extremities: Negative Edema
Skin: Warm and Dry
Neurological: Awake and Alert
Psychological: Calm
Objective Data
Lab Data
Lab Results
03/29/24 05:17
03/29/24 05:17
Estimated Creat Clear > 125 ml/min 03/29/24 05:17
Lactic Acid 0.9 mmol/L (0.7-2.0) 03/28/24 04:11
Total Bilirubin 0.5 mg/dl (0.2-1.3) 03/29/24 05:17
AST 27 U/L (17-59) 03/29/24 05:17
ALT 22 U/L (0-50) 03/29/24 05:17
Alkaline Phosphatase 129 U/L (38-126) H 03/29/24 05:17
Most recent labs reviewed.
Micro Results:
03/28/24 08:21 Body Fluid Culture - Preliminary
Chest Fluid Staphylococcus aureus
Gram Stain - Preliminary
03/27/24 20:20 MRSA Screen - Final
Nose No Methicillin Resistant Staphylococcus aureus isolated.
03/27/24 16:46 Blood Culture - Preliminary
Blood/Venous No Growth in 24 hours- Final report to follow
03/27/24 16:46 Influenza Types A & B (JINNY) - Final
Nasal Swab Negative for Influenza A & B, NAAT
Negative results must be combined with clinical observations
and patient history.
Nucleic Acid Amplification test (NAAT)performed on the
[employer] platform.
[2024-03-29 16:55] LABS: Glucose - Point of Care 105 mg/dl (70-99)
[2024-03-29] MEDS: KCL 20 MEQ PO (17:36)
[2024-03-29] MEDS: VANCOCIN 300 ML IV (18:42)
[2024-03-29] MEDS: VANCOCIN 300 MG IV (18:42)
--- NOTE | 2024-03-29 20:29 | PTCARENOTE ---
Received pt from mona RN. Dressing from chest tube site c/d/i. Abd binder in place. Mouth care provided. VSS. Pt is laying comfortable in bed with call ramirez in reach.
[2024-03-29] MEDS: LANTUS 0.15 UNITS SC (21:26)
[2024-03-29 21:30] LABS: Glucose - Point of Care 198 mg/dl (70-99)
[2024-03-30] VITALS (20 sets, daily range): BP systolic 86–172; BP diastolic 59–82; BMI 30.9
--- NOTE | 2024-03-30 02:59 | DOWNTIME ---
There was a [employer] Downtime on 03/30/2024 from 0100 to 03/30/2024 at 0255. Downtime documentation of patient's care, including medication administrations, has been reconciled in the electronic record per guidelines. Refer to the
patient's paper chart under the miscellaneous tab to see printed paper medication records and downtime forms.
[2024-03-30] MEDS: ZOSYN 50 IV (05:01)
[2024-03-30] MEDS: VANCOCIN 300 ML IV (05:49)
[2024-03-30] MEDS: VANCOCIN 300 MG IV (05:49)
[2024-03-30 06:16] LABS: ALT (SGPT) 26 U/L (0-50); AST (SGOT) 31 U/L (17-59); Albumin 2.6 g/dl (3.5-5.0); Alkaline Phosphatase 146 U/L (38-126); Blood Urea Nitrogen 13 mg/dl (9-20); Calcium 7.8 mg/dl (8.4-10.2); Carbon Dioxide 25 mmol/L (22-30); Chloride 104 mmol/L (98-107); Estimated Creatinine Clearance > 125 ml/min; Glucose 121 mg/dl (70-99); Potassium 3.6 mmol/L (3.5-5.1); Sodium 135 mmol/L (135-145); Total Bilirubin 0.4 mg/dl (0.2-1.3); Total Protein 5.1 g/dl (6.3-8.2); eGFR > 60.00
[2024-03-30 06:26] LABS: Hematocrit 28.7 % (39.0-52.0); Hemoglobin 9.7 g/dL (13.0-18.0); Mean Corp Hgb Conc. 33.8 g/dL (33.0-37.0); Mean Corpuscular Hgb 27.5 pg (27.0-31.0); Mean Corpuscular Volume 81.3 fL (80.0-94.0); Mean Platelet Volume 8.8 fL (7.4-10.4); Platelet Count 404 10^3/uL (130-400); Red Blood Cell Count 3.53 10^6/uL (4.70-6.10); Red Cell Dist. Width 13.3 % (11.5-14.5); White Blood Cell Count 13.3 10^3/uL (4.8-10.8)
--- NOTE | 2024-03-30 06:33 | W.PN.CT ---
Today's Communication / Plan
-
-feels better overall. Says that felt SOB last night, but feeling better this am. on RA pOx 94-97% on RA
-on Vanco and Zosyn per ID. WBC is trending down, Tm 99.0 past 24 hrs
-follow CXR
-continue abdominal binder (appears decreased subq emphysema on CXR)
-wt is up 3 lbs - consider 40 iv Lasix with 40 KCL this am
-on sq Heparin for DVT prophylaxis
Assessment / Plan
-
-Admitted 03/27/24 with clinical sepsis
- leukocytosis with bandemia and lactic acidosis (4.0), hypotension on admission.
-S/p right upper lobe lobectomy/wedge resection of right middle lobe on 03/16/[address] Pradhan (discharged on 03/21 with Heimlich valve->CT was dcd this admission on 03/28)
-Stable trace right apical pneumothorax
-Right empyema secondary to Staphylococcus aureus
-KEISHA
-Leukocytosis
-Immunocompromised state; on chronic prednisone with zytiga for prostate cancer
Discussed patient care with: Nursing and Care Team
Subjective
-
Date of Service: March 30, 2024
Objective Data
-
Lab Results
03/30/24 05:06
03/30/24 05:06
Vital Signs
Vital Signs
Temp Pulse Resp BP Pulse Ox
98.3 F 82 26 156/79 97
03/30/24 04:21 03/30/24 06:00 03/30/24 06:00 03/30/24 06:00 03/30/24 06:00
CT Intake/Output/Weight
03/29/24 03/29/24 03/30/24
06:59 18:59 06:59
Intake Total 1260 / 1260 200 / 1010 810 / 1010
Output Total 400 / 1310 2200 / 3700 1500 / 3700
Balance 860 / -50 -2000 / -2690 -690 / -2690
SaO2: 97
Physical Exam
-
General: Awake and AOx3
Cardiovascular: Regular rate & rhythm, No Murmurs and No Rub
Respiratory: Decreased Breath Sounds (on R. No wheeze. )
Incision: Clean and Dry (Abdominal binder is on)
Extremities: No Edema
Data Reviewed
-
Lab Results: Results Reviewed
Medications: Active Meds Reviewed
Chest X-Ray: Report Reviewed and Image Reviewed
--- NOTE | 2024-03-30 07:33 | W.PN.PUL3 ---
Today's Communication / Plan
-
Out of bed to chair, ambulate
Continue antibiotics per infectious disease
Positive pleural fluid culture noted, white count improving
loculated pocket of lfuid noted on CXR. consider drainage vs pigtail
Disposition efforts
Assessment
-
68-year-old man with history of prostate cancer, on low-dose prednisone, type 2 diabetes, recently underwent lobectomy for adenocarcinoma of the lung. Negative lymph nodes. Discharged from the hospital with a chest tube in place with a Heimlich
valve due to persistent air leak. Returns to the hospital complaining of fever found to have leukocytosis as well. We were consulted for evaluation and assistance in management
Fever/leukocytosis-sepsis.
Likely intrapleural source
Culture positive for Staphylococcus aureus
Patient discharged with a Heimlich valve-chest tube due to persistent air leak
Chest x-ray: Noted subcu air/pleural thickening. Possible small pleural effusion. Apical pneumothorax
Chest tube removed 03/29
S/p RATS, RULectomy, RML wedge resection 03/16/2024. 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 Negative lymph nodes. Negative margins.
Lymph node dissection
1.4 cm right upper lobe nodule, PET avid
Atypical cells on robotic bronchoscopy 02/15/2024
Station 7 lymph node sampling negative
Right middle lobe nodule with focal calcification
Conditions present prior to admission
Biapical emphysema
Mild interstitial changes
Preoperative FEV1 3.55/90%, TLC 6.4/81%, DLCO 26.98/86%
Hypertension/hyperlipidemia
Diabetes
Sleep apnea, intolerant to CPAP
History of prostate cancer, prostatectomy
[id number] history of smoking quit 2021
Family history of cystic fibrosis
Family history of cancer (colon, ovarian, breast)
Assessment and plan:
Patient is feeling objectively and subjectively improved. Chest tube has been removed
Remains on vancomycin/Zosyn
Positive pleural fluid culture Staphylococcus aureus
Upon further discussion with Dr. Falk who spoke with , patient did not take good care of chest tube site as outpatient
Also on baseline prednisone 5 mg, outpatient regimen
Patient appears to be improved presently without any complaints
Chest x-ray today with small loculated right pleural effusion, no pneumothorax
Moving forward
Continue antibiotics per infectious disease
Will defer transition to oral regimen and length of treatment to ID
May require drainage of pocket of pleural fluid or pigtail. Will d/w CTS
Follow-up chest x-ray as indicated
Would recommend follow-up x-ray in 2 weeks given positive culture regardless
Follow-up for focal collection of pleural fluid
Status post right upper lobe lobectomy. Consistent with adenocarcinoma. Clean margins and 1 positive lymph node, station 10.
Patient aware.
Would recommend oncology follow-up as outpatient
DVT prophylaxis: Presently on subcutaneous heparin every 12 hours
Ambulate, out of bed to chair
Disposition efforts
Follow-up information left in chart
Subjective Data
-
Date of Service:
Date of Service: March 30, 2024
Subjective:
Patient is without complaints. Admits to cough, nonproductive, no blood. Denies significant chest pain, nausea, abdominal pain. Patient on room air. Chest tube removed. Positive pleural fluid culture noted
Objective Data
Data Reviewed
Vital Signs / I&O / Oxygen:
Vital Signs
Temp Pulse Resp BP Pulse Ox
98.3 F 82 26 156/79 94
03/30/24 04:21 03/30/24 06:00 03/30/24 06:00 03/30/24 06:00 03/30/24 07:33
Intake and Output
03/29/24 03/30/24 03/31/24
06:59 06:59 06:59
Intake Total 1260 / 1260 1010 / 1010
Output Total 1310 / 1310 3700 / 3700
Balance -50 / -50 -2690 / -2690
SaO2 94
Physical Exam
General: Comfortable
HEENT: Normocephalic and Anicteric
Cardiovascular: S1-S2, Regular Rhythm, Murmur (n) and Rub (n)
Respiratory: Wheeze (n), Crackles (n), Rhonchi (n) and Other (sl decreased rt side)
GI: Soft, Non Distended and Non Tender
Neurology: Awake, Alert and No Motor Deficits
Skin: Cyanosis (n), Jaundice (n) and Rash (n)
Labs/Micro/Reports
Lab Data
03/30/24 05:06
03/30/24 05:06
Microbiology
03/27/24 16:46 Blood/Venous Blood Culture - Preliminary
No Growth in 48 hours- Final report to follow
03/28/24 08:21 Chest Fluid Body Fluid Culture - Preliminary
Staphylococcus aureus
03/28/24 08:21 Chest Fluid Gram Stain - Preliminary
03/27/24 20:20 Nose MRSA Screen - Final
No Methicillin Resistant Staphylococcus aureus isolated.
03/27/24 16:46 Nasal Swab Influenza Types A & B (JINNY) - Final
Negative for Influenza A & B, NAAT
Negative results must be combined with clinical observations
and patient history.
Nucleic Acid Amplification test (NAAT)performed on the
[employer] platform.
[2024-03-30 07:49] LABS: Glucose - Point of Care 131 mg/dl (70-99)
[2024-03-30] MEDS: HEPARIN 5000 UNITS SC ×2 (08:14→20:52)
[2024-03-30] MEDS: NOVOLOG FLEXPEN-LOW RESISTANCE SC ×2 (08:14→11:40)
[2024-03-30] MEDS: TRILEPTAL 300 MG PO (08:14)
[2024-03-30] MEDS: NEURONTIN 300 MG PO ×3 (08:14→22:35)
[2024-03-30] MEDS: LIPITOR 10 MG PO (08:14)
[2024-03-30] MEDS: DELTASONE 5 MG PO (08:14)
[2024-03-30] MEDS: NOVOLOG FLEXPEN SC (08:14)
--- NOTE | 2024-03-30 09:58 | PTCARENOTE ---
Pt sent for CT Chest to eval right pleural effusion. Linens changed at this time. Andreea at bedside to visit, reports pt looking much better.
--- NOTE | 2024-03-30 10:30 | W.PN.ID1 ---
Date of Service
Date of Service: March 30, 2024
Today's Communication
Continue antibiotics. See below�
Assessment / Plan
Clinical Sepsis
- leukocytosis with bandemia and lactic acidosis (4.0), hypotension on admission.
S/p right upper lobe lobectomy/wedge resection of right middle lobe
Stable trace right apical pneumothorax
Right empyema secondary to Staphylococcus aureus (MSSA)
KEISHA
Leukocytosis
Immunocompromized state; on chronic prednisone with zytiga for prostate cancer
Recommendations
Leukocytosis improving, lactate level improved.
Blood culture NGTD
Chest fluid culture with Staphylococcus aureus. (Pleural fluid cell count and diff ordered but not previously done.)
Isolate has been identified as MSSA.
Narrow to cefazolin 2 g IV every 8 hours. Patient will need a 6-week course of antibiotics, with at least 3 weeks via the IV route.
Monitor fever curve, WBC count
����������������������������������������������������������
Chief Complaint
-: Other (Pleural effusion; MSSA empyema)
Subjective / Review of Systems
Patient seen and examined. Reports breathing is comfortable. No fevers or chills.
Review of Systems: No Fever and No Chills
Vital Signs / Physical Exam
Vital Signs
Vital Signs
Temp Pulse Resp BP Pulse Ox
98.3 F 82 26 156/79 94
03/30/24 07:10 03/30/24 06:00 03/30/24 06:00 03/30/24 06:00 03/30/24 07:33
Physical Exam
Constitutional: No Acute Distress, Comfortable and Non-toxic
Eyes: Sclera Anicteric
Cardiovascular: S1/S2; Negative S3/S4
Pulmonary: Coarse, Non Labored and Other (Thoracic binder in place.); Negative Wheezes or Rales
Gastrointestinal: Soft, Non Tender and Non Distended
Extremities: Negative Edema
Skin: Warm and Dry
Neurological: Awake and Alert
Psychological: Calm
Objective Data
Lab Data
Lab Results
03/30/24 05:06
03/30/24 05:06
Estimated Creat Clear > 125 ml/min 03/30/24 05:06
Lactic Acid 0.9 mmol/L (0.7-2.0) 03/28/24 04:11
Total Bilirubin 0.4 mg/dl (0.2-1.3) 03/30/24 05:06
AST 31 U/L (17-59) 03/30/24 05:06
ALT 26 U/L (0-50) 03/30/24 05:06
Alkaline Phosphatase 146 U/L (38-126) H 03/30/24 05:06
Most recent labs reviewed.
Micro Results:
03/28/24 08:21 Body Fluid Culture - Final
Chest Fluid S aureus-Methicillin Sensitive
Gram Stain - Final
03/27/24 16:46 Blood Culture - Preliminary
Blood/Venous No Growth in 48 hours- Final report to follow
03/27/24 20:20 MRSA Screen - Final
Nose No Methicillin Resistant Staphylococcus aureus isolated.
03/27/24 16:46 Influenza Types A & B (JINNY) - Final
Nasal Swab Negative for Influenza A & B, NAAT
Negative results must be combined with clinical observations
and patient history.
Nucleic Acid Amplification test (NAAT)performed on the
[employer] platform.
Pleural Fluid Cult - Final
Few S aureus-Methicillin Sensitive
Organism 1 S aureus-Methicillin Sensitive
1. S aureus-Methicillin Sensitive
M.I.C. RX
--------- ---
Amoxicillin/Potas. Clavulanate <=4/2 S
Ampicillin <=2 R
Clindamycin <=0.5 S
Gentamicin <=4 S
Erythromycin >4 R
Levofloxacin <=1 S
Oxacillin <=0.25 S
Tetracycline <=4 S
Trimethoprim/Sulfamethoxazole <=0.5/9.5 S
Vancomycin 1 S
--- NOTE | 2024-03-30 10:33 | W.PN.UPDATE ---
Update Note
Progress Note Update
CT chest likely needs IR drain
Effusion worse, pleural cultures grew Staph Aureus Sens to Meth
Defer to ID for fci abx
Give 25% albumin and diurese
[2024-03-30 11:20] LABS: Glucose - Point of Care 122 mg/dl (70-99)
--- NOTE | 2024-03-30 11:34 | PTCARENOTE ---
Addendum entered by Phillip Yan RN 03/30/24 12:03:
VAT RN will be coming to place PICC-> this RN will give IV Lasix, Albumin, and Ancef at that time.
Original Note:
left wrist PIV leaking-will need PICC for longterm abx, discussed with Dr. Mccoy. Will order now.
[2024-03-30] MEDS: NOVOLOG FLEXPEN 5 UNITS SC ×2 (11:38→16:25)
--- NOTE | 2024-03-30 11:48 | PTCARENOTE ---
Pt will need thoracentesis today per CT Surgery Dr. Pradhan. Pt and updated and in agreement.
--- NOTE | 2024-03-30 13:21 | PTCARENOTE ---
PICC line placed, awaiting CXR to be read, will send pt to IR for thoracentesis next.
--- NOTE | 2024-03-30 14:27 | W.PN.HOSP.TC ---
Today's Communication/Plan
-
narrow to cefazolin
IR for drain
Assessment / Plan
Assessment / Plan
HPI: 68-year-old male with PMH recent right upper lobe lobectomy and wedge resection of right middle lobe on 03/16/2024 for spiculated right upper lung mass, Prostate cancer on chronic prednisone, Type 2 diabetes, Interstitial lung disease/ Emphysema,
Hypertension, Obstructive sleep apnea intolerant to CPAP, Hyperlipidemia; p/w fever noticed by his , which started on the DOA. He still has his chest tube from recent surgery.
# Severe Sepsis, unclear source
#Empyema
-Cultures growing MSSA
-Narrow to cefazolin 2 g IV every 8 hours. Patient will need a 6-week course of antibiotics, with at least 3 weeks via the IV route.
-Defer IR drain to CTS
-Pulm CS
-ID CS
-OOB to chair
-Incentive Jeremy
-CXR in 2-4 weeks
# KEISHA
SCr 1.7 from baseline 0.6
cont IVF
Hold FIXED INCOME MANAGER ACEI with KEISHA
Trend SCr
Improving
# recent right upper lobe lobectomy and wedge resection of right middle lobe due to spiculated right upper lung mass on 03/16/2024
-Empyema
-see plan above
-IV diuresis as per CTS
Pulm CS
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
-Outpatient Onc evaluation
#hyponatremia
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
-ctm
Other medical conditions:
# Prostate cancer on chronic prednisone
# Immune compromised state on chronic prednisone for Prostate cancer
# IDDM
Cont lower doses of FIXED INCOME MANAGER Lantus and Lispro: Lantus at 15 units HS (22 units FIXED INCOME MANAGER), and Aspart at 5 units AC (10 units FIXED INCOME MANAGER)
cover with ISS
Carb control diet
# Interstitial lung disease
# Emphysema
# Hypertension
Hold FIXED INCOME MANAGER ACEI with KEISHA
Hold FIXED INCOME MANAGER BP meds with current stable BP and severe sepsis
# Obstructive sleep apnea intolerant to CPAP
# Hyperlipidemia
DVT ppx: HSQ
FC
Total time spent on today's encounter was 50 minutes which included time spent in counseling the patient/family regarding diagnosis and treatment plan as listed above, goals of care, and symptom management. Case was discussed with nursing staff,
specialists, and care coordinators/case management. All labs and imaging personally reviewed by me. Remainder the time spent in detailed review of previous records, lab data, imaging, and other medical provider documentation.
Anticipated Discharge: > 48 hours
Subjective/Interval History
-
Date of Service: March 30, 2024
Appears to need IR drain, Effusion worse
Objective Data
-
Labs:
Laboratory Results
03/30/24
05:06
WBC 13.3 H
Hgb 9.7 L
Hct 28.7 L
Plt Count 404 H
Sodium 135
Potassium 3.6
Chloride 104
Carbon Dioxide 25
BUN 13
Creatinine 0.7
Glucose 121 H
Calcium 7.8 L
Total Bilirubin 0.4
AST 31
ALT 26
Alkaline Phosphatase 146 H
Vital Signs:
Vital Signs
Temp Pulse Resp BP Pulse Ox
98.1 F 85 26 175/75 96
03/30/24 11:10 03/30/24 11:29 03/30/24 06:00 03/30/24 11:29 03/30/24 07:41
I&O
03/29/24 03/30/24 03/31/24
06:59 06:59 06:59
Intake Total 1260 / 1260 1010 / 1010
Output Total 1310 / 1310 3700 / 3700
Balance -50 / -50 -2690 / -2690
Review of Systems
-
History Source: Patient
All other systems: Not reviewed unless documented
Data Reviewed
-
Diagnostic Radiology: Image personally visualized and interpreted and Report Reviewed by me
Labs: Labs Reviewed by me
[2024-03-30] MEDS: LASIX 40 MG IV (14:29)
[2024-03-30] MEDS: ANCEF 10 IV ×2 (14:31→20:51)
--- NOTE | 2024-03-30 14:33 | PTCARENOTE ---
PICC placement ok per radiology, will send pt for thoracentesis now.
--- NOTE | 2024-03-30 15:01 | W.PN.UPDATE ---
Update Note
Progress Note Update
CDI QUERY RESPONSE
Sepsis is unexpected but is NOT a complication of the surgery
--- NOTE | 2024-03-30 15:13 | CM ---
Patient with Hx prostate CA, recent lung lobectomy for adenocarcinoma, chest tube with Heimlich valve with Dx sepsis, KEISHA. Room air. Chest tube removed. Plan thoracentesis today. Receiving IV Abx. PICC line placed today.
Per ID notes 03/30: Narrow to cefazolin 2 g IV every 8 hours. Patient will need a 6-week course of antibiotics, with at least 3 weeks via the IV route.
TT message to Dr Cisneros requesting script for IV Abx.
Met with patient and discussed home Abx infusion- patient agreeable to home infusion and a referral to [facility]. Patient says his was an anesthesiologist in [facility] and will be administering the med. Explained [facility] referral
process, benefit check and teaching visits. Patient says he was told he may be able to d/c home tomorrow.
Spoke with Britney, [facility]; they will check patient's benefits while waiting for script. [facility] nurses will be able to do the home teaching visits (no addl' agency needed due to patient having commercial insurance).
Plan fax script to [facility] when available.
Plan home with home IV Abx infusion through [facility].
[2024-03-30] MEDS: FLEXBUMIN 50 IV (16:13)
[2024-03-30] MEDS: NOVOLOG FLEXPEN-LOW RESISTANCE 1 UNITS SC (16:26)
[2024-03-30 16:37] LABS: Glucose - Point of Care 190 mg/dl (70-99)
[2024-03-30 21:44] LABS: Glucose - Point of Care 150 mg/dl (70-99)
[2024-03-30] MEDS: LANTUS 0.15 UNITS SC (22:35)
[2024-03-31] VITALS (11 sets, daily range): BP systolic 121–179; BP diastolic 52–83
[2024-03-31] MEDS: ANCEF 10 IV ×3 (03:47→20:31)
[2024-03-31 04:08] LABS: Hematocrit 26.9 % (39.0-52.0); Hemoglobin 9.3 g/dL (13.0-18.0); Mean Corp Hgb Conc. 34.6 g/dL (33.0-37.0); Mean Corpuscular Hgb 27.6 pg (27.0-31.0); Mean Corpuscular Volume 79.8 fL (80.0-94.0); Mean Platelet Volume 8.6 fL (7.4-10.4); Platelet Count 374 10^3/uL (130-400); Red Blood Cell Count 3.37 10^6/uL (4.70-6.10); Red Cell Dist. Width 13.2 % (11.5-14.5); White Blood Cell Count 9.9 10^3/uL (4.8-10.8)
--- NOTE | 2024-03-31 04:29 | W.PN.CT ---
Today's Communication / Plan
-
-abx narrowed to Cefazolin by ID, picc was placed 03/30. WBC is normal, Tm 98.6
-s/p R thoracentesis 03/30, yielding 10 mL of straw colored pleural fluid.
-got 25% Albumin with 40 iv Lasix on 03/30 (UO 900+)
-K 3.2- ordered 40 po KCL
-recent pathology with adenocarcinoma with 1 positive lymph node - will need chemo in a few weeks, follows with oncology at [facility]
Assessment / Plan
-
-Admitted 03/27/24 with clinical sepsis
- leukocytosis with bandemia and lactic acidosis (4.0), hypotension on admission.
- Right empyema secondary to Staphylococcus aureus (MSSA) - picc placed 03/30 for abx
- currently, on cefazolin 2 g IV every 8 hours. Patient will need a 6-week course of antibiotics, with at least 3 weeks via the IV route per ID
- drained only 10 cc by IR 03/30
-S/p right upper lobe lobectomy/wedge resection of right middle lobe on 03/16/[address] Pradhan (discharged on 03/21 with Heimlich valve->CT was dcd this admission on 03/28)
-pathology: Invasive adenocarcinoma with 1 positive lymph node
-Stable trace right apical pneumothorax
-KEISHA
-Leukocytosis
-Immunocompromised state; on chronic prednisone with zytiga for prostate cancer
Chest CT w/out iv contrast 03/30:
1. Post right upper lobectomy and wedge resection right middle lobe mass.
2. Small right-sided hydropneumothorax with partially loculated pleural fluid as above. Small amount of right chest wall/right flank emphysema related to previous chest tube.
3. Indeterminate 5 mm right middle lobe nodule.
4. Coronary and aortic atherosclerosis.
CXR 03/30:
Stable small loculated right pleural effusion and bilateral airspace opacities. No pneumothorax following thoracentesis.
Discussed patient care with: Nursing and Care Team
Subjective
-
Date of Service: March 31, 2024
Objective Data
-
Lab Results
03/31/24 03:50
Vital Signs
Vital Signs
Temp Pulse Resp BP Pulse Ox
98.4 F 81 26 134/52 94
03/30/24 23:21 03/31/24 04:00 03/31/24 04:00 03/31/24 02:00 03/31/24 04:00
CT Intake/Output/Weight
03/30/24 03/30/24 03/31/24
06:59 18:59 06:59
Intake Total 810 / 1010 4890 / 4890
Output Total 1500 / 3700 900 / 900
Balance -690 / -2690 3990 / 3990
SaO2: 94
Physical Exam
-
General: Awake and AOx3
Cardiovascular: Regular rate & rhythm, No Murmurs and No Rub
Respiratory: Decreased Breath Sounds (on R. No wheeze. )
Incision: Clean and Dry (Abdominal binder is on)
Extremities: No Edema
[2024-03-31 04:31] LABS: ALT (SGPT) 31 U/L (0-50); AST (SGOT) 39 U/L (17-59); Albumin 2.6 g/dl (3.5-5.0); Alkaline Phosphatase 138 U/L (38-126); Blood Urea Nitrogen 10 mg/dl (9-20); Carbon Dioxide 28 mmol/L (22-30); Chloride 101 mmol/L (98-107); Estimated Creatinine Clearance > 125 ml/min; Glucose 112 mg/dl (70-99); Potassium 3.2 mmol/L (3.5-5.1); Sodium 135 mmol/L (135-145); Total Bilirubin 0.5 mg/dl (0.2-1.3); Total Protein 5.2 g/dl (6.3-8.2); eGFR > 60.00
[2024-03-31 07:59] LABS: Glucose - Point of Care 133 mg/dl (70-99)
[2024-03-31] MEDS: NOVOLOG FLEXPEN-LOW RESISTANCE SC ×2 (08:35→17:47)
--- NOTE | 2024-03-31 09:15 | W.PN.ID1 ---
Addendum entered and electronically signed by Rodney Cisneros DO 03/31/24 12:10:
I have personally performed a history and physical exam of the patient and discussed management with the resident. I reviewed the resident's note and agree with the documented findings and plan of care HPI/CC except the following changes in
documentation.
Overall feels well.
Continue with cefazolin. Home infusion sheet has been given to case management.
Will follow-up in the office in 2 to 3 weeks.
Original Note:
Date of Service
Date of Service: March 31, 2024
Today's Communication
Continue cefazolin.
Assessment / Plan
Clinical Sepsis
- leukocytosis with bandemia and lactic acidosis (4.0), hypotension on admission.
S/p right upper lobe lobectomy/wedge resection of right middle lobe
Stable trace right apical pneumothorax
Right empyema secondary to Staphylococcus aureus (MSSA)
KEISHA
Leukocytosis
Immunocompromized state; on chronic prednisone with zytiga for prostate cancer
Recommendations
Leukocytosis improving, lactate level improved.
Blood culture NGTD
Chest fluid culture with Staphylococcus aureus. (Pleural fluid cell count and diff ordered but not previously done.)
Isolate has been identified as MSSA.
Continue cefazolin 2 g IV every 8 hours. Patient will need a 6-week course of antibiotics, with at least 3 weeks via the IV route.
Monitor fever curve, WBC count
����������������������������������������������������������
Chief Complaint
-: Other (Pleural effusion; MSSA empyema)
Subjective / Review of Systems
Patient feels comfortable except for for some vague chest discomfort on the left side. No shortness of breath, mild cough with some sputum production.
Review of Systems: No Fever and No Chills
Vital Signs / Physical Exam
Vital Signs
Vital Signs
Temp Pulse Resp BP Pulse Ox
97.3 F 90 24 153/76 93
03/31/24 07:15 03/31/24 06:00 03/31/24 06:00 03/31/24 06:00 03/31/24 06:00
Physical Exam
Constitutional: No Acute Distress
Cardiovascular: S1/S2
Pulmonary: Other (Basal crackles bilaterally)
Gastrointestinal: Soft, Non Tender and Non Distended
Skin: Warm and Dry
Neurological: Awake, Alert, Oriented and AO x 3
Objective Data
Lab Data
Lab Results
03/31/24 03:50
03/31/24 03:50
Estimated Creat Clear > 125 ml/min 03/31/24 03:50
Lactic Acid 0.9 mmol/L (0.7-2.0) 03/28/24 04:11
Total Bilirubin 0.5 mg/dl (0.2-1.3) 03/31/24 03:50
AST 39 U/L (17-59) 03/31/24 03:50
ALT 31 U/L (0-50) 03/31/24 03:50
Alkaline Phosphatase 138 U/L (38-126) H 03/31/24 03:50
Most recent labs reviewed.
Micro Results:
03/30/24 15:47 Body Fluid Culture - Pending
Pleural Fluid Gram Stain - Preliminary
03/27/24 16:46 Blood Culture - Preliminary
Blood/Venous No Growth in 72 hours- Final report to follow
03/28/24 08:21 Body Fluid Culture - Final
Chest Fluid S aureus-Methicillin Sensitive
Gram Stain - Final
03/27/24 20:20 MRSA Screen - Final
Nose No Methicillin Resistant Staphylococcus aureus isolated.
03/27/24 16:46 Influenza Types A & B (JINNY) - Final
Nasal Swab Negative for Influenza A & B, NAAT
Negative results must be combined with clinical observations
and patient history.
Nucleic Acid Amplification test (NAAT)performed on the
[employer] platform.
Pleural Fluid Cult - Final
Few S aureus-Methicillin Sensitive
Organism 1 S aureus-Methicillin Sensitive
1. S aureus-Methicillin Sensitive
M.I.C. RX
--------- ---
Amoxicillin/Potas. Clavulanate <=4/2 S
Ampicillin <=2 R
Clindamycin <=0.5 S
Gentamicin <=4 S
Erythromycin >4 R
Levofloxacin <=1 S
Oxacillin <=0.25 S
Tetracycline <=4 S
Trimethoprim/Sulfamethoxazole <=0.5/9.5 S
Vancomycin 1 S
--- NOTE | 2024-03-31 09:17 | W.PN.PUL.V3 ---
Today's Communication / Plan
-
Wean oxygen
Monitor left-sided atypical inspiratory chest pain
Continue DVT prophylaxis
Increase activity
Antibiotics per infectious disease
Assessment
-
68-year-old man with history of prostate cancer, on low-dose prednisone, type 2 diabetes, recently underwent lobectomy for adenocarcinoma of the lung. Negative lymph nodes. Discharged from the hospital with a chest tube in place with a Heimlich
valve due to persistent air leak. Returns to the hospital complaining of fever found to have leukocytosis as well. We were consulted for evaluation and assistance in management
Fever/leukocytosis-sepsis.
Likely intrapleural source
Culture positive for Staphylococcus aureus
Patient discharged with a Heimlich valve-chest tube due to persistent air leak
Chest x-ray: Noted subcu air/pleural thickening. Possible small pleural effusion. Apical pneumothorax
Chest tube removed 03/29
S/p RATS, RULectomy, RML wedge resection 03/16/2024. 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 Negative lymph nodes. Negative margins.
Lymph node dissection
1.4 cm right upper lobe nodule, PET avid
Atypical cells on robotic bronchoscopy 02/15/2024
Station 7 lymph node sampling negative
Right middle lobe nodule with focal calcification
Conditions present prior to admission
Biapical emphysema
Mild interstitial changes
Preoperative FEV1 3.55/90%, TLC 6.4/81%, DLCO 26.98/86%
Hypertension/hyperlipidemia
Diabetes
Sleep apnea, intolerant to CPAP
History of prostate cancer, prostatectomy
[id number] history of smoking quit 2021
Family history of cystic fibrosis
Family history of cancer (colon, ovarian, breast)
Assessment and plan:
Overall respiratory status improving, but, today he has some left-sided vague chest discomforts
Wean oxygen
Increase activity
Nebulizers as needed
Chest x-ray 03/31/2024 with small pleural effusion on the right
CT chest 03/30/2024-no contrast-small loculated effusion
Patient on DVT prophylaxis and no swelling in legs, negative Homans' sign
If atypical left-sided chest pains persist he may require CT chest with PE protocol-overall resolving
Cultures reviewed
Infectious disease following-correspondence reviewed
Antibiotics per infectious disease
Leukocytosis much improved
Status post right upper lobectomy consistent with adenocarcinoma with clean margins and 1 positive lymph node-station 10
Postoperative oncological evaluation recommended
DVT prophylaxis-on subcu heparin
Increase activity
Reviewed with at the bedside
Outpatient pulmonary and oncological follow-up
Subjective Data
-
Date of Service:
Date of Service: March 31, 2024
Chief Complaint: Pulmonary Follow Up
Subjective:
Has some left-sided deep inspiration pleuritic like pain, minimal mucus production, no shortness of breath at rest, no leg swelling, no abdominal pain
Review of Systems
General: Other (Per HPI)
Objective Data
Data Reviewed
Vital Signs / I&O:
Vital Signs
Temp Pulse Resp BP Pulse Ox
97.3 F 90 24 153/76 93
03/31/24 07:15 03/31/24 06:00 03/31/24 06:00 03/31/24 06:00 03/31/24 06:00
Intake and Output
03/30/24 03/31/24 04/01/24
06:59 06:59 06:59
Intake Total 1010 / 1010 5610 / 5610
Output Total 3700 / 3700 1300 / 1300
Balance -2690 / -2690 4310 / 4310
SaO2: 93
Physical Exam
General: Respiratory Distress (n) and Comfortable
HEENT: Normocephalic and Anicteric
Cardiovascular: Regular Rhythm, Murmur (n), Rub (n), JVD, Peripheral Edema (n), Calf Tenderness (n) and Kira's Sign (n)
Respiratory: Wheeze (n), Crackles (Few basilar), Rhonchi (n), Accessory Resp Muscle Use (n), Stridor (n) and Other (sl decreased rt side)
GI: Soft, Non Distended and Non Tender
Neurology: Awake, Alert and No Motor Deficits
Skin: Warm, Good Color, Cyanosis (n), Jaundice (n) and Rash (n)
Labs/Micro/Reports
Lab Data
03/31/24 03:50
03/31/24 03:50
Microbiology
03/30/24 15:47 Pleural Fluid Gram Stain - Preliminary
03/27/24 16:46 Blood/Venous Blood Culture - Preliminary
No Growth in 72 hours- Final report to follow
03/28/24 08:21 Chest Fluid Body Fluid Culture - Final
S aureus-Methicillin Sensitive
03/28/24 08:21 Chest Fluid Gram Stain - Final
03/27/24 20:20 Nose MRSA Screen - Final
No Methicillin Resistant Staphylococcus aureus isolated.
[2024-03-31] MEDS: DELTASONE 5 MG PO (09:34)
[2024-03-31] MEDS: NOVOLOG FLEXPEN SC (09:34)
[2024-03-31] MEDS: HEPARIN 5000 UNITS SC ×2 (09:34→20:32)
[2024-03-31] MEDS: KCL 40 MEQ PO (09:35)
[2024-03-31] MEDS: TRILEPTAL 300 MG PO (09:38)
[2024-03-31] MEDS: NEURONTIN 300 MG PO ×3 (09:38→21:32)
[2024-03-31] MEDS: LIPITOR 10 MG PO (09:38)
[2024-03-31] MEDS: KCL 20 MEQ PO (09:46)
[2024-03-31] MEDS: LASIX 40 MG IV (09:46)
[2024-03-31] MEDS: TYLENOL 650 MG PO (09:49)
[2024-03-31 11:28] LABS: Glucose - Point of Care 153 mg/dl (70-99)
[2024-03-31] MEDS: NOVOLOG FLEXPEN-LOW RESISTANCE 1 UNITS SC (12:49)
[2024-03-31] MEDS: NOVOLOG FLEXPEN 5 UNITS SC ×2 (12:50→17:47)
--- NOTE | 2024-03-31 13:15 | PTCARENOTE ---
Pt remains stable. Dispo efforts ongoing, plan discussed with pt and , all consultants, CM and attending. PICC is in place for home abx infusions, [facility] RN to come in to provide education to patient and his re: home abx infusion. No
complaints at this time, safe environment maintained.
--- NOTE | 2024-03-31 13:39 | PTCARENOTE ---
Pt to be transferred to [facility]-, report given to KENDRA Slaughter. Pt will be sent in wheelchair.
--- NOTE | 2024-03-31 13:41 | W.PN.HOSP.TC ---
Today's Communication/Plan
-
cont iv abx
await further ct surg recs
cleared from medical standpoint otherwise
home infusion set up- Cm aware
Assessment / Plan
Assessment / Plan
HPI: 68-year-old male with PMH recent right upper lobe lobectomy and wedge resection of right middle lobe on 03/16/2024 for spiculated right upper lung mass, Prostate cancer on chronic prednisone, Type 2 diabetes, Interstitial lung disease/ Emphysema,
Hypertension, Obstructive sleep apnea intolerant to CPAP, Hyperlipidemia; p/w fever noticed by his , which started on the DOA. He still has his chest tube from recent surgery.
# Severe Sepsis, unclear source
#Empyema
#Hypoxia
-Cultures growing MSSA
-Narrow to cefazolin 2 g IV every 8 hours. Patient will need a 6-week course of antibiotics, with at least 3 weeks via the IV route.
-s/p R thoracentesis 03/30, yielding 10 mL of straw colored pleural fluid.
-Pulm CS
-ID CS
-OOB to chair
-Incentive Jeremy
-CXR in 2-4 weeks
-wean o2
# KEISHA
SCr 1.7 from baseline 0.6
cont IVF
Hold RD SCIENTIST ACEI with KEISHA
Trend SCr
Improving
# recent right upper lobe lobectomy and wedge resection of right middle lobe due to spiculated right upper lung mass on 03/16/2024
-Empyema
-see plan above
-IV diuresis as per CTS
Pulm CS
#Hypokalemia
-monitor and replete
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
-Outpatient Onc evaluation
#hyponatremia
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
-ctm
Other medical conditions:
# Prostate cancer on chronic prednisone
# Immune compromised state on chronic prednisone for Prostate cancer
# IDDM
Cont lower doses of RD SCIENTIST Lantus and Lispro: Lantus at 15 units HS ([address] SCIENTIST), and Aspart at 5 units AC ([address] SCIENTIST)
cover with ISS
Carb control diet
# Interstitial lung disease
# Emphysema
# Hypertension
Hold RD SCIENTIST ACEI with KEISHA
Hold RD SCIENTIST BP meds with current stable BP and severe sepsis
# Obstructive sleep apnea intolerant to CPAP
# Hyperlipidemia
DVT ppx: HSQ
FC
Total time spent on today's encounter was 53 minutes which included time spent in counseling the patient/family regarding diagnosis and treatment plan as listed above, goals of care, and symptom management. Case was discussed with nursing staff,
specialists, and care coordinators/case management. All labs and imaging personally reviewed by me. Remainder the time spent in detailed review of previous records, lab data, imaging, and other medical provider documentation.
Anticipated Discharge: Within 24 hours
Subjective/Interval History
-
Date of Service: March 31, 2024
10cc out from IR yesterday
Objective Data
-
Labs:
Laboratory Results
03/31/24
03:50
WBC 9.9
Hgb 9.3 L
Hct 26.9 L
Plt Count 374
Sodium 135
Potassium 3.2 L
Chloride 101
Carbon Dioxide 28
BUN 10
Creatinine 0.6 L
Glucose 112 H
Calcium 8.0 L
Total Bilirubin 0.5
AST 39
ALT 31
Alkaline Phosphatase 138 H
Vital Signs:
Vital Signs
Temp Pulse Resp BP Pulse Ox
98.0 F 102 16 179/83 97
03/31/24 11:15 03/31/24 10:00 03/31/24 10:00 03/31/24 10:00 03/31/24 10:00
I&O
03/30/24 03/31/2424
06:59 06:59 06:59
Intake Total 1010 / 1010 5610 / 5610
Output Total 3700 / 3700 1300 / 1300 700 / 700
Balance -2690 / -2690 4310 / 4310 -700 / -700
Review of Systems
-
History Source: Patient
All other systems: Not reviewed unless documented
Data Reviewed
-
Diagnostic Radiology: Image personally visualized and interpreted and Report Reviewed by me
Labs: Labs Reviewed by me
--- NOTE | 2024-03-31 14:12 | PTCARENOTE ---
Plan discussed with home [employer] ticket [employer], pt is all set up to go home on IV abx, Dr. Mccoy said will dc tomorrow. Pt downgraded to tele. Plan will be for RN to give tomorrow's noon dose of Ancef and then pt will be given evening dose at home by
visiting RN. Safe environment maintained. No needs at this time.
--- NOTE | 2024-03-31 14:16 | W.PN.UPDATE ---
Update Note
Progress Note Update
Note plane for IV Cefazolin x 6 weeks for MSSA right sided empyema. Continue daily diuresis with daily weights.
--- NOTE | 2024-03-31 14:56 | PTCARENOTE ---
Pt with no documented BM since admit, Dr. Mccoy notified, will add Miralax. Pt is assigned tele room [phone], in progress.
[2024-03-31] MEDS: MIRALAX 17 GRAMS PO (15:09)
--- NOTE | 2024-03-31 16:38 | CM ---
Patient with Hx prostate CA, recent lung lobectomy for adenocarcinoma with Dx sepsis, KEISHA. Room air.
Spoke with Britney, [facility]; she confirms she received the script for home IV cefazolin.
Met with patient, and Britney, nurse from [facility]; Britney did teaching visit for home infusion. will be doing home infusion 2x/day and patient 1x/day when is at work. Britney suggests patient receive afternoon dose cefazolin here
tomorrow prior to d/c, then [facility] will deliver tomorrow afternoon and patient/ can do evening dose at home. They are aware of possible d/c tomorrow. IMM completed.
Plan home with home IV Abx infusion through [facility].
[2024-03-31 17:46] LABS: Glucose - Point of Care 141 mg/dl (70-99)
[2024-03-31 21:32] LABS: Glucose - Point of Care 156 mg/dl (70-99)
[2024-03-31] MEDS: LANTUS 0.15 UNITS SC (21:32)
[2024-04-01 03:00] VITALS: BP 159/76
[2024-04-01] MEDS: ANCEF 10 IV ×2 (04:58→12:42)
[2024-04-01 06:00] VITALS: BMI 29.8
[2024-04-01 06:50] LABS: ALT (SGPT) 34 U/L (0-50); AST (SGOT) 47 U/L (17-59); Albumin 2.8 g/dl (3.5-5.0); Alkaline Phosphatase 166 U/L (38-126); Blood Urea Nitrogen 10 mg/dl (9-20); Calcium 8.2 mg/dl (8.4-10.2); Carbon Dioxide 27 mmol/L (22-30); Chloride 102 mmol/L (98-107); Estimated Creatinine Clearance > 125 ml/min; Glucose 119 mg/dl (70-99); Potassium 3.7 mmol/L (3.5-5.1); Sodium 137 mmol/L (135-145); Total Bilirubin 0.6 mg/dl (0.2-1.3); Total Protein 5.5 g/dl (6.3-8.2); eGFR > 60.00
[2024-04-01 07:09] LABS: Hematocrit 29.6 % (39.0-52.0); Mean Corp Hgb Conc. 33.8 g/dL (33.0-37.0); Mean Corpuscular Hgb 27.6 pg (27.0-31.0); Mean Corpuscular Volume 81.8 fL (80.0-94.0); Red Blood Cell Count 3.62 10^6/uL (4.70-6.10); Red Cell Dist. Width 13.3 % (11.5-14.5)
[2024-04-01 07:10] LABS: Mean Platelet Volume 9.2 fL (7.4-10.4); Platelet Count 451 10^3/uL (130-400)
[2024-04-01] MEDS: TRILEPTAL 300 MG PO (07:13)
[2024-04-01] MEDS: LIPITOR 10 MG PO (07:13)
[2024-04-01] MEDS: NEURONTIN 300 MG PO (07:13)
[2024-04-01] MEDS: DELTASONE 5 MG PO (07:14)
[2024-04-01] MEDS: HEPARIN 5000 UNITS SC (07:14)
[2024-04-01] MEDS: MIRALAX 17 GRAMS PO (07:15)
[2024-04-01 07:30] VITALS: BP 150/70
[2024-04-01 08:10] LABS: Glucose - Point of Care 126 mg/dl (70-99)
[2024-04-01] MEDS: NOVOLOG FLEXPEN-LOW RESISTANCE SC (08:16)
--- NOTE | 2024-04-01 08:45 | W.PN.PUL.V3 ---
Today's Communication / Plan
-
wean O2
inc activity
binder per surg
atx x 6 weeks
stable from pul for discharge with op f/u
Assessment
-
68-year-old man with history of prostate cancer, on low-dose prednisone, type 2 diabetes, recently underwent lobectomy for adenocarcinoma of the lung. Negative lymph nodes. Discharged from the hospital with a chest tube in place with a Heimlich
valve due to persistent air leak. Returns to the hospital complaining of fever found to have leukocytosis as well. We were consulted for evaluation and assistance in management
Fever/leukocytosis-sepsis.
Likely intrapleural source
Culture positive for Staphylococcus aureus
MSSA empyema
Patient discharged with a Heimlich valve-chest tube due to persistent air leak
Chest x-ray: Noted subcu air/pleural thickening. Possible small pleural effusion. Apical pneumothorax
Chest tube removed 03/29
S/p RATS, RULectomy, RML wedge resection 03/16/2024. 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 Negative lymph nodes. Negative margins.
Lymph node dissection
1.4 cm right upper lobe nodule, PET avid
Atypical cells on robotic bronchoscopy 02/15/2024
Station 7 lymph node sampling negative
Right middle lobe nodule with focal calcification
Conditions present prior to admission
Biapical emphysema
Mild interstitial changes
Preoperative FEV1 3.55/90%, TLC 6.4/81%, DLCO 26.98/86%
Hypertension/hyperlipidemia
Diabetes
Sleep apnea, intolerant to CPAP
History of prostate cancer, prostatectomy
[id number]-[id number] history of smoking quit 2021
Family history of cystic fibrosis
Family history of cancer (colon, ovarian, breast)
Assessment and plan:
Overall respiratory status improving
Wean oxygen
Increase activity
Nebulizers as needed
Chest x-ray 03/31/2024 with small pleural effusion on the right
CT chest 03/30/2024-no contrast-small loculated effusion
Patient on DVT prophylaxis and no swelling in legs, negative Homans' sign
If atypical left-sided chest pains persist he may require CT chest with PE protocol-overall resolving
Cultures reviewed
Infectious disease following-correspondence reviewed- 6 weeks atx via PICC
Antibiotics per infectious disease
Leukocytosis much improved
Status post right upper lobectomy consistent with adenocarcinoma with clean margins and 1 positive lymph node-station 10
Postoperative oncological evaluation recommended
DVT prophylaxis-on subcu heparin
Increase activity
Reviewed with at the bedside
Outpatient pulmonary and oncological follow-up
Subjective Data
-
Date of Service:
Date of Service: April 01, 2024
Chief Complaint: Pulmonary Follow Up and Dyspnea Follow Up
Subjective:
no cp, sob, abd pain, binder persists
Review of Systems
General: Other (per HPI)
Objective Data
Data Reviewed
Vital Signs / I&O:
Vital Signs
Temp Pulse Resp BP Pulse Ox
97.8 F 87 20 150/70 96
04/01/24 07:30 04/01/24 07:30 04/01/24 07:30 04/01/24 07:30 04/01/24 07:30
Intake and Output
03/31/24 04/01/24 04/02/24
06:59 06:59 06:59
Intake Total 1250 / 1250 960 / 960
Output Total 1300 / 1300 1700 / 1700
Balance -50 / -50 -740 / -740
SaO2: 96
Physical Exam
General: Respiratory Distress (n) and Comfortable
HEENT: Normocephalic and Anicteric
Cardiovascular: Regular Rhythm, Murmur (n), Rub (n), JVD, Peripheral Edema (n), Calf Tenderness (n) and Kira's Sign (n)
Respiratory: Wheeze (n), Crackles (Few basilar), Rhonchi (n), Accessory Resp Muscle Use (n), Stridor (n) and Other (sl decreased rt side)
GI: Soft, Non Distended and Non Tender
Neurology: Awake, Alert and No Motor Deficits
Skin: Warm, Good Color, Cyanosis (n), Jaundice (n) and Rash (n)
Labs/Micro/Reports
Lab Data
04/01/24 04:00
04/01/24 04:00
Microbiology
03/27/24 16:46 Blood/Venous Blood Culture - Preliminary
No Growth in 4 days- Final report to follow
03/30/24 15:47 Pleural Fluid Body Fluid Culture - Preliminary
03/30/24 15:47 Pleural Fluid Gram Stain - Preliminary
03/28/24 08:21 Chest Fluid Body Fluid Culture - Final
S aureus-Methicillin Sensitive
03/28/24 08:21 Chest Fluid Gram Stain - Final
03/27/24 20:20 Nose MRSA Screen - Final
No Methicillin Resistant Staphylococcus aureus isolated.
[2024-04-01] MEDS: NOVOLOG FLEXPEN 5 UNITS SC (08:48)
--- NOTE | 2024-04-01 09:23 | W.PN.UPDATE ---
Update Note
Progress Note Update
Continue Lasix 40mg po daily with supplemental KCL 10 mEq daily.
[2024-04-01] MEDS: LASIX 40 MG PO (10:29)
[2024-04-01 11:40] VITALS: BP 159/79
[2024-04-01 12:10] LABS: Glucose - Point of Care 209 mg/dl (70-99)
--- NOTE | 2024-04-01 12:24 | W.PN.HOSP.TC ---
Addendum entered and electronically signed by Daniele Mccoy MD 04/02/24 14:21:
[id number]
Original Note:
Today's Communication/Plan
-
Lasix 40mg po, KCL; bmp in 5 days with pcp
Cefazolin x 3-6 weeks (possible transition to PO after 3 weeks)
CXR in 1 week with pulmonary
Stop HCTZ
F/u PCP, Pulm, ID, CT Surgery outpatient
Assessment / Plan
Assessment / Plan
HPI: 68-year-old male with PMH recent right upper lobe lobectomy and wedge resection of right middle lobe on 03/16/2024 for spiculated right upper lung mass, Prostate cancer on chronic prednisone, Type 2 diabetes, Interstitial lung disease/ Emphysema,
Hypertension, Obstructive sleep apnea intolerant to CPAP, Hyperlipidemia; p/w fever noticed by his , which started on the DOA. He still has his chest tube from recent surgery.
# Severe Sepsis, unclear source
#Empyema
#Hypoxia
-Cultures growing MSSA
-Narrow to cefazolin 2 g IV every 8 hours. Patient will need a 6-week course of antibiotics, with at least 3 weeks via the IV route.
-s/p R thoracentesis 03/30, yielding 10 mL of straw colored pleural fluid.
-Pulm CS - f/u outpatient with CXR
-ID CS - f/u in 2-3 weeks
-OOB to chair
-Incentive Jeremy
-wean o2
# KEISHA
-resolved
-resume ACEI upon dc
# recent right upper lobe lobectomy and wedge resection of right middle lobe due to spiculated right upper lung mass on 03/16/2024
-Empyema
-see plan above
-diuresis as per CTS: start on PO lasix daily with KCL repletion. F/u BMP in 5 days with pcp.
-F/u CTS - Dr. Pradhan outpatient
#Hypokalemia
-monitor and replete
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
-Outpatient Onc evaluation
#hyponatremia
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
-ctm
-stop hctz with hyponatremia and now on lasix
-f/u bmp/hypertension outpatient
Other medical conditions:
# Prostate cancer on chronic prednisone
# Immune compromised state on chronic prednisone for Prostate cancer
# IDDM
Cont lower doses of SPOUTER Lantus and Lispro: Lantus at 15 units HS (22 units SPOUTER), and Aspart at 5 units AC (10 units SPOUTER)
cover with ISS
Carb control diet
# Interstitial lung disease
# Emphysema
# Hypertension
ACEI
BB
Stop HCTZ with hyponatremia and now on lasix
# Obstructive sleep apnea intolerant to CPAP
# Hyperlipidemia
DVT ppx: HSQ
FC
More than 30 minutes spent in discharge including
Final examination of the patient
Summarizing hospital stay
Instructions for continuing care to all relevant caregivers
Preparation of discharge records, prescriptions, and referral forms
Total time spent (35 in minutes):
Anticipated Discharge: Today
Subjective/Interval History
-
Date of Service: April 01, 2024
no acute events overnight, resting comfortably in bed.
Objective Data
-
Labs:
Laboratory Results
04/01/24
04:00
WBC 12.0 H
Hgb 10.0 L
Hct 29.6 L
Plt Count 451 H D
Sodium 137
Potassium 3.7
Chloride 102
Carbon Dioxide 27
BUN 10
Creatinine 0.6 L
Glucose 119 H
Calcium 8.2 L
Total Bilirubin 0.6
AST 47
ALT 34
Alkaline Phosphatase 166 H
Vital Signs:
Vital Signs
Temp Pulse Resp BP Pulse Ox
97.7 F 95 20 159/79 97
04/01/24 11:40 04/01/24 11:40 04/01/24 11:40 04/01/24 11:40 04/01/24 11:40
I&O
03/31/24 04/01/24 04/02/24
06:59 06:59 06:59
Intake Total 1250 / 1250 960 / 960
Output Total 1300 / 1300 1700 / 1700
Balance -50 / -50 -740 / -740
Review of Systems
-
History Source: Patient
All other systems: Not reviewed unless documented
Data Reviewed
-
Diagnostic Radiology: Image personally visualized and interpreted and Report Reviewed by me
Labs: Labs Reviewed by me
--- NOTE | 2024-04-01 12:28 | CM ---
Case management following for d/c planning
Pt for d/c today
Pts to transport home
Completed training for home infusion with [facility] - meds to be delivered this PM to home
Plan - home with home infusion - [facility] following
--- NOTE | 2024-04-01 12:29 | W.DS.TRANS ---
DC Summary - Surgical Scheduler
-
Discharge Instructions:
Discharge Diagnosis/Procedures
# Severe Sepsis, unclear source
#Empyema
#Hypoxia
# KEISHA
Diet Low Cholesterol,Low Fat,Diabetic, Carb
Controlled
Blood Work bmp in 5 days with pcp
Instructions:
Stand-Alone Forms:
Changes to Home Medications: No
Discharge Medications:
DC Medications w/original date entered in [facility]
sitagliptin phos 100 mg-metformin ER 1,000 mg tablet,extend rel 24h mp (Janumet XR) 1 ea PO DAILY Diabetes 03/04/16
atorvastatin 10 mg tablet 10 mg PO DAILY High Cholesterol 04/03/17
calcium-vitamin D3-vitamin K 500 mg-1,000 unit-40 mcg chewable tablet 1 ea PO DAILY Supplement 09/08/21
insulin glargine 100 unit/mL (3 mL) subcutaneous pen (Lantus Solostar U-100 Insulin) 22 units SC HS Diabetes 09/08/21
prednisone 5 mg tablet 5 mg PO DAILY Anti-Inflammatory 09/08/21
insulin lispro 100 unit/mL subcutaneous pen (Humalog KwikPen (U-100) Insulin) 10 unit SC AC Diabetes 02/11/24
lisinopril 10 mg tablet 10 mg PO DAILY Blood Pressure 02/11/24
oxcarbazepine 300 mg tablet 300 mg PO DAILY Neurological Condition 02/11/24
cyclobenzaprine 10 mg tablet 5 mg (1/2 x 10 mg) PO Q8HPRN PRN muscle spasm #20 tabs 03/21/24
gabapentin 300 mg capsule 300 mg PO TID nerve pain #30 caps 03/21/24
metoprolol tartrate 25 mg tablet 25 mg PO BID hypertension #60 tabs 03/21/24
oxycodone 10 mg tablet 10 mg PO Q6HPRN PRN severe pain #30 tabs 03/21/24
abiraterone 500 mg tablet (Zytiga) 1,000 mg PO HS Cancer 03/27/24
fenofibrate nanocrystallized 145 mg tablet 145 mg PO DAILY High Cholesterol 03/28/24
acetaminophen 325 mg tablet 650 mg (2 x 325 mg) PO Q4HPRN PRN temp >102 F and/or mild pain #0 tabs 04/01/24
cefazolin 10 gram solution for injection 2 g IV Q8H #0 ea 04/01/24
furosemide 40 mg tablet 40 mg PO DAILY 30 days #30 tabs 04/01/24
potassium chloride 10 mEq tablet,extended release(part/cryst) 10 meq PO DAILY #30 tabs 04/01/24
Home Medication Changes
cefazolin 10 gram solution for injection 2 g IV Q8H #0 ea 04/01/24
furosemide 40 mg tablet 40 mg PO DAILY 30 days #30 tabs 04/01/24
potassium chloride 10 mEq tablet,extended release(part/cryst) 10 meq PO DAILY #30 tabs 04/01/24
Pending Results: No
[2024-04-01] MEDS: NOVOLOG FLEXPEN SC (12:42)
[2024-04-01] MEDS: NOVOLOG FLEXPEN-LOW RESISTANCE 2 UNITS SC (12:43)
== END 2024-04-01 13:36 | disposition home health service (06) | DRG 871 ==
LOC: 3 WEST ACU 18:45
PROVIDERS: Physician Assistant Medical; Radiology Diagnostic Radiology; Radiology Vascular & Interventional Radiology; ADMITTING PHYSICIAN Internal Medicine; ATTENDING PHYSICIAN Internal Medicine; CONSULT PHYSICIAN Thoracic Surgery (Cardiothoracic Vascular Surgery); EMERGENCY PHYSICIAN Student in an Organized Health Care Education/Training Program; FAMILY PHYSICIAN Nurse Practitioner Family; OTHER PHYSICIAN Internal Medicine Critical Care Medicine; OTHER PHYSICIAN Internal Medicine Infectious Disease
PROC: 0WP9X0Z Removal of Drainage Device from Right Pleural Cavity, External Approach (ICD-10-PCS; 2024-03-29)
PROC: 0W993ZZ Drainage of Right Pleural Cavity, Percutaneous Approach (ICD-10-PCS; 2024-03-30)
PROC: 02HV33Z Insertion of Infusion Device into Superior Vena Cava, Percutaneous Approach (ICD-10-PCS; 2024-03-30)
DX: A41.9 Sepsis, unspecified organism (principal); J86.9 Pyothorax without fistula; N17.9 Acute kidney failure, unspecified; E22.2 Syndrome of inappropriate secretion of antidiuretic hormone; J90 Pleural effusion, not elsewhere classified; E87.20 Acidosis, unspecified; D84.821 Immunodeficiency due to drugs; E84.9 Cystic fibrosis, unspecified; R65.20 Severe sepsis without septic shock; E11.9 Type 2 diabetes mellitus without complications; R41.82 Altered mental status, unspecified; J43.9 Emphysema, unspecified; R09.02 Hypoxemia; E87.6 Hypokalemia; E78.5 Hyperlipidemia, unspecified; B95.61 Methicillin susceptible Staphylococcus aureus infection as the cause of diseases classified elsewhere; E78.00 Pure hypercholesterolemia, unspecified; G47.33 Obstructive sleep apnea (adult) (pediatric); I10 Essential (primary) hypertension; Z87.891 Personal history of nicotine dependence; Z85.46 Personal history of malignant neoplasm of prostate; Z79.52 Long term (current) use of systemic steroids; Z11.52 Encounter for screening for COVID-19; Z90.2 Acquired absence of lung [part of]
CPT/HCPCS: 32555; 71045; 71046; 71250; 80048; 80053; 80202; 81003; 82962; 83605; 85025; 85027; 86803; 87015; 87040; 87070; 87147; 87186; 87205; 87502; 87811; 96361; 96365; 99285; P9047

== ENCOUNTER → 2024-04-07 12:02 | Outpatient (REF) | payer BC, OTHER, SELFPAY ==
[2024-04-07 13:01] LABS: Blood Urea Nitrogen 9 mg/dl (9-20); Calcium 9.6 mg/dl (8.4-10.2); Carbon Dioxide 35 mmol/L (22-30); Chloride 97 mmol/L (98-107); Glucose 114 mg/dl (70-99); Sodium 138 mmol/L (135-145); eGFR > 60.00
== END ==
LOC: REG 12:02
PROVIDERS: ATTENDING PHYSICIAN Internal Medicine Infectious Disease; FAMILY PHYSICIAN Nurse Practitioner Family
DX: A41.9 Sepsis, unspecified organism (principal)
CPT/HCPCS: 36415; 80048

== ENCOUNTER → 2024-04-13 14:11 | Outpatient (REF) | payer BC, OTHER, SELFPAY | LOC: RAD 14:11 | PROVIDERS: ATTENDING PHYSICIAN Thoracic Surgery (Cardiothoracic Vascular Surgery); FAMILY PHYSICIAN Nurse Practitioner Family | DX: J90 Pleural effusion, not elsewhere classified (principal); Z90.2 Acquired absence of lung [part of] | CPT/HCPCS: 71046 ==

== ENCOUNTER → 2024-07-05 09:24 | Outpatient (REF) | payer BC, OTHER, SELFPAY | LOC: RCS 09:24 | PROVIDERS: ATTENDING PHYSICIAN Internal Medicine Cardiovascular Disease; FAMILY PHYSICIAN Nurse Practitioner Family | DX: R06.02 Shortness of breath (principal) | CPT/HCPCS: 93306; 93356 ==